=== PATIENT | male | born 1955 | race Caucasian/White ===

== ENCOUNTER → 2020-12-19 22:00 | Outpatient (CLI) | payer MEDICARE, SELFPAY ==
[2018-07-16 17:31] VITALS: BMI 39.0
== END ==
PROVIDERS: Visit Provider Nurse Practitioner
DX: R10.9 Unspecified abdominal pain (principal)
CPT/HCPCS: 87077; 87086; 87088

== ENCOUNTER → 2021-02-19 21:31 | Outpatient (CLI) | payer MEDICARE, SELFPAY ==
[2021-02-19 15:27] VITALS: BMI 41.8
[2021-02-19 21:40] LABS: Absolute Lymphocyte Count 2.16 X10^3/uL (0.83-4.51); Absolute Neutrophil Count 3.7 X10^3/uL (2.0-7.7); Basophil# 0.08 X10^3/uL; Basophil% 1.2 % (0-1); Eosinophils% 1.5 % (0-5); Hematocrit 48.4 % (40-54); Lymphocyte # 2.16 X10^3/ul (0.83-4.51); Lymphocyte % 31.7 % (19-41); Mean Corp Hgb Conc 33.1 g/dL (32-36); Mean Corpuscular Hgb 31.9 pg (27.0-32.0); Mean Corpuscular Volume 96.6 fL (80-94); Mean Platelet Vol. 9.9 fl (6.2-12.0); Monocyte# 0.71 X10^3/uL; Monocyte% 10.4 % (0-10); NRBC Flagged by Analyzer 0 % (0-5); Neutrophil # 3.72 X10^3/uL (2.7-7.7); Neutrophil % 54.6 % (47-70); Platelet Count 270 K/mm3 (150-450); RBC Distribution Width CV 13.2 % (11.6-14.6); RBC Distribution Width SD 47.2 fl (35.1-43.9); Red Blood Count 5.01 M/mm3 (4.6-6.2); White Blood Count 6.8 K/mm3 (4.4-11.0)
[2021-02-19 21:55] LABS: Insulin 32.9 mU/L (2.6-37.6)
[2021-02-19 22:01] LABS: AST(SGOT) 29 U/L (15-37); Alanine Aminotransfer ALT/SGPT 48 U/L (16-61); Alkaline Phosphatase 46 U/L (45-117); Anion Gap 7 (5-15); BUN 14 mg/dL (7-18); BUN/Creat Ratio 17.6 RATIO (10-20); Calcium,Total 8.9 mg/dL (8.5-10.1); Chloride 103 mmol/L (98-107); Cholesterol 205 mg/dL (200); EST Glomerular Filtration Rate 104 mL/min (>60); Est Glom Filt Rate - Afr Amer 126 mL/min (>60); Glucose 90 mg/dL (74-106); High Density Lipoprotein 46 mg/dL; PSA,Total- Diagnostic 0.39 ng/mL (0.0-4.0); Sodium Level 136 mmol/L (136-145); Thyroid Stim Hormone (TSH) 1.11 uIU/mL (0.358-3.74); Triglycerides 137 mg/dL; Very Low Density Lipoprotein 27 mg/dL (5-40)
== END ==
PROVIDERS: Visit Provider Nurse Practitioner
DX: I10 Essential (primary) hypertension (principal); F41.1 Generalized anxiety disorder; H66.91 Otitis media, unspecified, right ear; E78.5 Hyperlipidemia, unspecified; R35.0 Frequency of micturition; R63.5 Abnormal weight gain
CPT/HCPCS: 80053; 80061; 83525; 84153; 84443; 85025

== ENCOUNTER → 2022-05-06 | Outpatient (CLI) | payer MEDICARE, SELFPAY ==
[2022-05-06 22:57] LABS: Absolute Lymphocyte Count 2.16 X10^3/uL (0.83-4.51); Absolute Neutrophil Count 3.3 X10^3/uL (2.0-7.7); Basophil% 1.6 % (0-1); Eosinophil# 0.07 X10^3/uL; Eosinophils% 1.1 % (0-5); Hematocrit 45.3 % (40-54); Hemoglobin 15.6 g/dL (13.0-16.5); Lymphocyte # 2.16 X10^3/ul (0.83-4.51); Lymphocyte % 34.4 % (19-41); Mean Corp Hgb Conc 34.4 g/dL (32-36); Mean Corpuscular Hgb 32.8 pg (27.0-32.0); Mean Corpuscular Volume 95.2 fL (80-94); Mean Platelet Vol. 10.5 fl (6.2-12.0); Monocyte# 0.66 X10^3/uL; Monocyte% 10.5 % (0-10); NRBC Flagged by Analyzer 0 % (0-5); Neutrophil # 3.26 X10^3/uL (2.7-7.7); Neutrophil % 52.1 % (47-70); POSITIVE COUNT YES; Platelet Count 218 K/mm3 (150-450); RBC Distribution Width SD 45.5 fl (35.1-43.9); Red Blood Count 4.76 M/mm3 (4.6-6.2); White Blood Count 6.3 K/mm3 (4.4-11.0)
[2022-05-06 23:09] LABS: AST(SGOT) 22 U/L (15-37); Alanine Aminotransfer ALT/SGPT 37 U/L (16-61); Albumin, Serum 3.8 g/dL (3.2-5.0); Alkaline Phosphatase 46 U/L (45-117); Anion Gap 7 (5-15); BUN 17 mg/dL (7-18); BUN/Creat Ratio 22.5 RATIO (10-20); Chloride 105 mmol/L (98-107); Cholesterol 211 mg/dL (200); Creatinine, Serum 0.75 mg/dL (0.70-1.30); EST Glomerular Filtration Rate 110 mL/min (>60); Est Glom Filt Rate - Afr Amer 133 mL/min (>60); Globulin 3.8 g/dL (2.2-4.2); Glucose 92 mg/dL (74-106); High Density Lipoprotein 49 mg/dL; PSA,Total - Annual Screen 0.62 ng/mL (0.00-4.00); Potassium 3.8 mmol/L (3.5-5.1); Protein, Total 7.6 g/dL (6.4-8.2); Sodium Level 138 mmol/L (136-145); Triglycerides 133 mg/dL; Very Low Density Lipoprotein 27 mg/dL (5-40)
[2022-05-06 23:16] LABS: Differential Indicated SCAN CRITERIA MET
[2022-05-06 23:26] LABS: Differential Comment SCANNED
== END | disposition home or self-care (01) ==
PROVIDERS: Visit Provider Nurse Practitioner
DX: Z00.00 Encounter for general adult medical examination without abnormal findings (principal); H65.02 Acute serous otitis media, left ear; I10 Essential (primary) hypertension; R35.0 Frequency of micturition; Z12.5 Encounter for screening for malignant neoplasm of prostate
CPT/HCPCS: 80053; 80061; 84153; 85025; G0103

== ENCOUNTER → 2023-01-06 | Outpatient (CLI) | payer MEDICARE, SELFPAY | END | disposition home or self-care (01) | PROVIDERS: Visit Provider Nurse Practitioner | DX: R31.9 Hematuria, unspecified (principal) | CPT/HCPCS: 87086; 87088 ==

== ENCOUNTER 2023-10-10 22:24 | Outpatient (CLI) | payer MEDICARE, SELFPAY ==
[2023-10-10 22:34] LABS: Absolute Lymphocyte Count 1.97 X10^3/uL (0.83-4.51); Absolute Neutrophil Count 3.9 X10^3/uL (2.0-7.7); Basophil# 0.06 X10^3/uL; Basophil% 0.9 % (0-1); Eosinophil# 0.12 X10^3/uL; Eosinophils% 1.7 % (0-5); Hematocrit 44.9 % (40-54); Hemoglobin 15.2 g/dL (13.0-16.5); Lymphocyte # 1.97 X10^3/ul (0.83-4.51); Lymphocyte % 28.7 % (19-41); Mean Corp Hgb Conc 33.9 g/dL (32-36); Mean Corpuscular Hgb 32.7 pg (27.0-32.0); Mean Corpuscular Volume 96.6 fL (80-94); Mean Platelet Vol. 10.1 fl (6.2-12.0); Monocyte# 0.75 X10^3/uL; Monocyte% 10.9 % (0-10); NRBC Flagged by Analyzer 0 % (0-5); Neutrophil # 3.94 X10^3/uL (2.7-7.7); Neutrophil % 57.5 % (47-70); Platelet Count 235 K/mm3 (150-450); RBC Distribution Width CV 13.1 % (11.6-14.6); RBC Distribution Width SD 46.5 fl (35.1-43.9); Red Blood Count 4.65 M/mm3 (4.6-6.2); White Blood Count 6.9 K/mm3 (4.4-11.0)
[2023-10-10 22:49] LABS: ALB/GLOB Ratio 1.1 RATIO (0.9-2.4); AST(SGOT) 44 U/L (15-37); Alanine Aminotransfer ALT/SGPT 45 U/L (16-61); Albumin, Serum 4.1 g/dL (3.2-5.0); Alkaline Phosphatase 42 U/L (45-117); Anion Gap 8 (5-15); BUN 21 mg/dL (7-18); Calcium,Total 9.5 mg/dL (8.5-10.1); Chloride 104 mmol/L (98-107); Cholesterol 109 mg/dL (200); Creatinine, Serum 0.88 mg/dL (0.70-1.30); EST Glomerular Filtration Rate 92 mL/min (>60); Est Glom Filt Rate - Afr Amer 112 mL/min (>60); Globulin 3.9 g/dL (2.2-4.2); Glucose 88 mg/dL (74-106); High Density Lipoprotein 51 mg/dL; PSA,Total - Annual Screen 0.54 ng/mL (0.00-4.00); Potassium 4.2 mmol/L (3.5-5.1); Sodium Level 138 mmol/L (136-145); Triglycerides 80 mg/dL; Very Low Density Lipoprotein 16 mg/dL (5-40)
== END 2023-10-10 23:59 | disposition home or self-care (01) ==
PROVIDERS: Visit Provider Nurse Practitioner
DX: G47.00 Insomnia, unspecified (principal); I10 Essential (primary) hypertension; F41.9 Anxiety disorder, unspecified; E78.5 Hyperlipidemia, unspecified; R31.9 Hematuria, unspecified; H65.02 Acute serous otitis media, left ear; Z12.5 Encounter for screening for malignant neoplasm of prostate
CPT/HCPCS: 80053; 80061; 84153; 85025; G0103

== ENCOUNTER → 2024-10-20 | Outpatient (CLI) | payer BC, SELFPAY ==
[2024-10-20 23:59] LABS: PSA,Total - Annual Screen 0.53 ng/mL (0.02-4.00)
[2024-10-21 00:27] LABS: Absolute Lymphocyte Count 2.28 X10^3/uL (0.83-4.51); Absolute Neutrophil Count 3.6 X10^3/uL (2.0-7.7); Basophil# 0.08 X10^3/uL; Basophil% 1.2 % (0-1); Eosinophil# 0.14 X10^3/uL; Eosinophils% 2.1 % (0-5); Hematocrit 46.8 % (40-54); Hemoglobin 16.2 g/dL (13.0-16.5); Lymphocyte # 2.28 X10^3/ul (0.83-4.51); Lymphocyte % 33.4 % (19-41); Mean Corp Hgb Conc 34.6 g/dL (32-36); Mean Corpuscular Hgb 33.1 pg (27.0-32.0); Mean Corpuscular Volume 95.7 fL (80-94); Mean Platelet Vol. 10.2 fl (6.2-12.0); Monocyte# 0.66 X10^3/uL; Monocyte% 9.7 % (0-10); NRBC Flagged by Analyzer 0 % (0-5); Neutrophil # 3.63 X10^3/uL (2.7-7.7); Neutrophil % 53.2 % (47-70); Platelet Count 244 K/mm3 (150-450); RBC Distribution Width CV 13.2 % (11.6-14.6); RBC Distribution Width SD 46.6 fl (35.1-43.9); Red Blood Count 4.89 M/mm3 (4.6-6.2); White Blood Count 6.8 K/mm3 (4.4-11.0)
[2024-10-21 00:29] LABS: Cholesterol 126 mg/dL (<=200); High Density Lipoprotein 49 mg/dL; Low Density Lipoprotein Calc. 57 mg/dL; Triglycerides 101 mg/dL; Very Low Density Lipoprotein 20 mg/dL (5-40); cholesterol:hdl ratio screen 2.58
[2024-10-21 00:40] LABS: ALB/GLOB Ratio 3.3 RATIO (0.9-2.4); AST(SGOT) 39 U/L (<=37); Alanine Aminotransfer ALT/SGPT 32 U/L (<=46); Albumin, Serum 2.2 g/dL (3.4-4.8); Alkaline Phosphatase 36 U/L (40-129); Anion Gap 11 (5-15); BUN 13 mg/dL (4-19); BUN/Creat Ratio 17.2 RATIO (10-20); Calcium,Total 8.9 mg/dL (7.6-11.0); Carbon Dioxide 25.6 mmol/L (21.0-32.0); Chloride 101 mmol/L (98-108); Creatinine, Serum 0.77 mg/dL (0.70-1.20); EST Glomerular Filtration Rate 97 (>60); Globulin 0.7 g/dL (2.2-4.2); Glucose 89 mg/dL (70-99); Potassium 4.5 mmol/L (3.3-5.1); Protein, Total 2.8 g/dL (5.9-8.4); Sodium Level 138 mmol/L (133-145); Total Bilirubin < 0.15 mg/dL (0.00-1.30)
== END | disposition home or self-care (01) ==
PROVIDERS: Referring Provider Nurse Practitioner; Visit Provider Nurse Practitioner
DX: T80.90XA Unspecified complication following infusion and therapeutic injection, initial encounter (principal); F41.9 Anxiety disorder, unspecified; E78.2 Mixed hyperlipidemia; F51.01 Primary insomnia; Z12.5 Encounter for screening for malignant neoplasm of prostate
CPT/HCPCS: 80053; 80061; 84153; 85025; G0103

== ENCOUNTER → 2024-11-12 | Outpatient (CLI) | payer BC, SELFPAY | END | disposition home or self-care (01) | PROVIDERS: Referring Provider Nurse Practitioner; Visit Provider Nurse Practitioner | DX: R31.9 Hematuria, unspecified (principal); N20.0 Calculus of kidney | CPT/HCPCS: 87086 ==

== ENCOUNTER → 2024-11-12 | Outpatient (CLI) | payer BC, SELFPAY ==
[2024-11-12 23:37] LABS: ALB/GLOB Ratio 1.5 RATIO (0.9-2.4); AST(SGOT) 31 U/L (<=37); Alanine Aminotransfer ALT/SGPT 32 U/L (<=46); Albumin, Serum 4.7 g/dL (3.4-4.8); Alkaline Phosphatase 49 U/L (40-129); Anion Gap 14 (5-15); BUN 24 mg/dL (4-19); BUN/Creat Ratio 27.5 RATIO (10-20); Calcium,Total 10.1 mg/dL (7.6-11.0); Carbon Dioxide 22.4 mmol/L (21.0-32.0); Chloride 102 mmol/L (98-108); Creatinine, Serum 0.86 mg/dL (0.70-1.20); EST Glomerular Filtration Rate 94 (>60); Globulin 3.1 g/dL (2.2-4.2); Glucose 91 mg/dL (70-99); Potassium 4.7 mmol/L (3.3-5.1); Protein, Total 7.8 g/dL (5.9-8.4); Sodium Level 139 mmol/L (133-145); Total Bilirubin 0.68 mg/dL (0.00-1.30)
== END | disposition home or self-care (01) ==
PROVIDERS: Referring Provider Nurse Practitioner; Visit Provider Nurse Practitioner
DX: N20.0 Calculus of kidney (principal); R31.9 Hematuria, unspecified
CPT/HCPCS: 80053

== ENCOUNTER → 2025-04-18 | Outpatient (CLI) | payer BC, SELFPAY ==
--- OUTSIDE RECORDS SUMMARY | 2025-04-18 21:28 | XMS RPT_ITS | CCD ---
Author Organization [facility] Care Team Providers Care Shine Worker Name Role Phone Meri VICTORIA-KOMAL Gwen A Unavailable Borges PILE DRIVING TECHNICIAN.SUPERVISOR EDUCATION, Lai L Primary Care Provide r Borges PILE DRIVING TECHNICIAN.SUPERVISOR EDUCATION, Lai L Primary Care Provide r BORGES, LAI Referring Unavailable BORGES, LAI Primary Care Unavailable BORGES, LIA Primary Care Unavailable BORGES, LAI Primary Care Unavailable BORGES, LAI Primary Care Unavailable Sera Ellis DO Unavailable [phone] Karla Liu Unavailable AGUSTINA GONZALEZ, THAN Attending Unavailable BORGES, LAI Primary Care Unavailable KING HODGES MD Attending Unavail able BORGES, LAI Primary Care Unavailable BORGES, LAI Primary Care Unavailable AGUSTINA GONZALEZ, THAN Attending Unavailable AGUSTINA GONZALEZ, THAN Attending Unavailable BORGES, LAI Primary Care Unavailable AGUSTINA GONZALEZ, THAN Attending Unavailable BORGES, LAI Primary Care Unavailable BORGES, LAI Primary Care Unavailable Borges PILE DRIVING TECHNICIAN.SUPERVISOR EDUCATION, Lai L Primary Care Provide r CLIFF SOLITARIO Attending Unavailable BORGES, LAI L Referring Unavailable BORGES, LAI L Primary Care Unavailable PROVIDER, UNKNOWN Referring Unavailable BORGES, LAI L Primary Care Unavailable Borges UPHOLSTERER HELPER-C, Lai Attending Provider Borges UPHOLSTERER HELPER-C, Lai Referring Provider Borges UPHOLSTERER HELPER-C, Lai Attending Provider Borges UPHOLSTERER HELPER, Lai Attending Unavailable Borges UPHOLSTERER HELPER, Lai Referring Unavailable Borges UPHOLSTERER HELPER, Lai Referring Unavailable Borges UPHOLSTERER HELPER, Lai Attending Unavailable Borges UPHOLSTERER HELPER, Lai Referring Unavailable Borges UPHOLSTERER HELPER, Lai Attending Unavailable MEAGAN WITT Referring Unavailable PROVIDER, UNKNOWN Admitting Unavailable PROVIDER, UNKNOWN Attending Unavailable PROVIDER, UNKNOWN Attending Unavailable BORGES, LAI Referring Unavailable PROVIDER, UNKNOWN Admitting Unavailable AGUSTINA GONZALEZ, THAN Attending Unavailable BORGES, LAI Primary Care Unavailable BORGES, LAI Primary Care Unavailable AGUSTINA GONZALEZ, THAN Attending Unavailable BORGES, LAI Primary Care Unavailable AGUSTINA GONZALEZ, THAN Attending Unavailable BORGES, LAI Primary Care Unavailable AGUSTINA GONZALEZ, THAN Attending Unavailable BORGES, LAI Primary Care Unavailable BORGES, LAI Primary Care Unavailable BORGES, LAI Primary Care Unavailable Allergies Allergy Classification Reported Allergen(s) Allergy Type Date of Onset Reaction(s) Facility (9 sources) Penicillin G; Translations: [PENICILLIN] Drug Allergy 8 [facility] Work Phone: (5 sources) Escitalopram Drug Allergy 1 nose bleeds [facility] (5 sources) Penicillin G Drug Allergy 8 u [facility] (1 source) Penicillins Propensity to adverse reactions to drug (disorder) Rash [place] (4 sources) DULoxetine Drug Allergy 3 unable walk vision off [facility] (1 source) DULoxetine Drug Allergy 3 [facility] (1 source) Escitalopram Drug Allergy 1 [facility] (1 source) Penicillin Drug Allergy 8 [facility] Medications Current Medications Medication Drug Class(es) Dates Sig (Normalized) Sig (Original) hydrOXYzine hydrochloride 10 mg oral tablet (5 sources) Antihistamine Start: 01-14-2024 take 1 tablet by mouth three to four times daily as needed for anxiety Hydroxyzine Hcl 10 mg tablet Active 10 mg PO 3 to 4 times per day as needed for anxiety January 14, 2024 12:00am take 1 tablet by yisel th every eight hours as needed hydrOXYzine HCl (ATARAX) 10 mg tablet Ta ke 10 mg by mouth three times a day as needed for anxiety. Active 24 hr metoprolol succinate 25 mg extended release oral tablet (11 sources) beta-Adrenergic Leonardo Start: 10-10-2023 take 2 tablets by mouth once daily Metoprolol Succinate 25 mg tablet extended release 24 hr Active 12.5 mg PO DAILY October 10, 2023 5:36pm Start: 10-10-2023 take 12.5 mg by mout h once daily Metoprolol Succinate Active 12.5 MG PO DAILY October 10, 2023 5:36pm Start: 09-17-2022 End: 10-10-2023 take 1 tablet by mouth once daily Metoprolol Succinate 25 mg tablet extended release 24 hr Discontinued 25 mg PO DAILY September 17, 2022 1:00am October 10, 2023 5:37pm Metoprolol tartr ate 50 mg oral tablet tamsulosin hydrochloride 0.4 mg oral capsule (11 sources) alpha-Adrenergic Leonardo Start: 11-12-2024 take 1 capsule by mouth once daily Tamsulosin 0.4 mg capsule Active 0.4 mg PO daily November 12, 2024 12:00am Start: 04-25-2018 End: 04-07-2024 take 1 capsule by mouth once daily Tamsulosin 0.4 mg capsule Discontinued 0.4 mg PO DAILY January 06, 2023 12:00am October 10, 2023 5:32pm traZODone hydrochloride 100 mg oral tablet (18 sources) Serotonin Reuptake Inhibitor Start: 01-14-2024 End: 06-17-2024 Trazodone 100 mg tablet Active 50 mg PO AT BEDTIME June 17, 2024 5:19pm Start: 10-10-2023 End: 01-14-2024 take 1 tablet by mouth at bedtime as needed Trazodone 100 mg tablet Discontinued 100 mg PO AT BEDTIME as needed for insomnia October 10, 2023 5:46pm January 14, 2024 5:24pm Start: 12-06-2022 End: 10-10-2023 take 1 tablet by mouth once daily Trazodone 50 mg tablet Discontinued 50 mg PO DAILY December 06, 2022 12:00am October 10, 2023 5:37pm take 25 mg by mouth once daily at bedtime trazodone HCl (TRAZODONE ORAL) Take 25 mg by mouth daily at bedtime. Active (1 source) Aspirin OTC, 81 mg Completed/Discontinued Medications Medication Drug Class(es) Dates Sig (Normalized) Sig (Original) ALPRAZolam 0.5 mg oral tablet (10 sources) Benzodiazepine Start: 05-22-2018 End: 09-26-2021 take 1 tablet by mouth once daily as needed for anxiety Alprazolam 0.5 mg tablet Discontinued 0.5 mg PO daily as needed for anxiety February 19, 2021 3:54pm September 26, 2021 7:29pm aspirin 81 mg delayed release oral tablet (4 sources) Platelet Aggregation Inhibitor, Nonsteroidal Anti-inflammatory Drug Start: 05-22-2020 ASPIRIN 81 MG [facility] ASPIRIN [id number] Gwen Jerez PILE DRIVING TECHNICIAN-SUPERVISOR EDUCATION take 1 tablet by mouth once khushi y aspirin 81 mg chewable tablet Take 81 mg by mouth once daily. Active atorvastatin 40 mg oral tablet (13 sources) HMG-CoA Reductase Inhibitor Start: 09-17-2022 End: 06-17-2024 take 1 tablet by mouth once daily Atorvastatin (Lipitor) 40 mg tablet Discontinued 40 mg PO DAILY October 10, 2023 5:30pm June 17, 2024 5:49pm Atorvastatin 20 mg oral tablet azithromycin 250 mg oral tablet (2 sources) Macrolide Antimicrobial Start: 06-17-2024 End: 06-22-2024 take 2 tablets by mouth once daily, then take 1 tablet by mouth once daily at mealtime Azithromycin 250 mg tablet Discontinued 250 mg PO daily 6 June 17, 2024 1:00am June 21, 2024 1:00am June 22, 2024 1:08am 2 po qd for 1 day then 1 po qd for 4 days with food or after eating cefdinir 300 mg oral capsule (3 sources) Cephalosporin Antibacterial Start: 07-19-2024 End: 10-20-2024 take 1 capsule by mouth twice daily Cefdinir 300 mg capsule Discontinued 300 mg PO TWICE A DAY July 19, 2024 1:00am October 20, 2024 6:37pm Start: 01-06-2023 Cefdinir 300 m g oral capsule cefuroxime 500 mg oral tablet (14 sources) Cephalosporin Antibacterial Start: 01-01-2023 End: 01-11-2023 take 1 tablet by mouth every twelve hours Cefuroxime Axetil 500 mg tablet Discontinued 500 mg PO Q12H 16 05January 01, 2023 3:18pm January 10, 2023 12:00am January 11, 2023 12:12am Start: 12-07-2021 End: 12-17-2021 take 1 tablet by mouth every twelve hours Cefuroxime Axetil 500 mg tablet Discontinued 500 mg PO Q12H 16 05December 07, 2021 4:48pm December 16, 2021 12:00am December 17, 2021 12:03am Start: 02-19-2018 End: 03-01-2018 take 1 tablet by mouth every twelve hours Cefuroxime Axetil 500 mg tablet Discontinued 500 mg PO Q12H 16 05February 19, 2018 12:00am February 28, 2018 12:00am March 01, 2018 12:09am ciprofloxacin 500 mg oral tablet (5 sources) Quinolone Antimicrobial Start: 06-16-2018 End: 07-16-2018 take 1 tablet by mouth twice daily Ciprofloxacin Hcl (Cipro) 500 mg tablet Discontinued 500 mg PO TWICE A DAY June 16, 2018 1:00am July 16, 2018 6:43pm clarithromycin 500 mg oral tablet (5 sources) Macrolide Antimicrobial Start: 07-16-2018 End: 12-20-2020 take 1 tablet by mouth every twelve hours Clarithromycin 500 mg tablet Discontinued 500 mg PO Q12H July 16, 2018 1:00am December 20, 2020 2:23pm clopidogrel 75 mg oral tablet (8 sources) P2Y12 Platelet Inhibitor Start: 09-17-2022 End: 01-14-2024 take 1 tablet by mouth once daily Clopidogrel 75 mg tablet Discontinued 75 mg PO DAILY October 10, 2023 5:30pm January 14, 2024 5:23pm doxycycline hyclate 100 mg oral tablet (5 sources) Tetracycline-class Drug Start: 05-27-2018 End: 07-16-2018 take 1 tablet by mouth twice daily Doxycycline Hyclate 100 mg tablet Discontinued 100 mg PO TWICE A DAY May 27, 2018 12:00am July 16, 2018 6:43pm DULoxetine 30 mg delayed release oral capsule (8 sources) Serotonin and Norepinephrine Reuptake Inhibitor Start: 09-17-2022 End: 10-22-2022 take 1 capsule by mouth once daily Duloxetine 30 mg capsule,delayed release(DR/EC) Discontinued 30 mg PO DAILY September 17, 2022 8:46pm October 22, 2022 4:51pm escitalopram 10 mg oral tablet (5 sources) Serotonin Reuptake Inhibitor Start: 12-19-2020 End: 02-19-2021 Escitalopram Oxalate 10 mg tablet Discontinued 10 mg PO DAILY December 19, 2020 12:00am February 19, 2021 3:50pm Take 1/2 tablet a day for about 10 days then start 1 whole tablet Ibuprofen (1 source) Nonsteroidal Anti-inflammatory Drug Start: 05-02-2020 IBUPROFEN TABS as needed as directed IBUPROFEN TABS [id number] Breanna Brianna CARRILLO ketorolac tromethamine 10 mg oral tablet (3 sources) Nonsteroidal Anti-inflammatory Drug, Cyclooxygenase Inhibitor Start: 04-25-2018 End: 04-07-2024 take 1 tablet by mouth every six hours as needed ketorolac (TORADOL) 10 mg tablet Take 1 tablet by mouth every 6 hours as needed. 20 tablet 04/25/2018 04/07/2024 Discontinued Comment on above: Take 1 tablet by yisel th every 6 hours as needed. LORazepam 0.5 mg oral tablet (18 sources) Benzodiazepine Start: 09-26-2021 End: 06-17-2024 take 1 tablet by mouth twice daily as needed for anxiety Lorazepam (Ativan) 0.5 mg tablet Discontinued 0.5 mg PO TWICE A DAY as needed for anxiety 60 October 10, 2023 5:30pm June 17, 2024 5:23pm LORazepam 1 mg o ral tablet losartan potassium 100 mg oral tablet (5 sources) Angiotensin 2 Receptor Leonardo Start: 05-22-2018 End: 12-20-2020 take 1 tablet by mouth once daily Losartan 100 mg tablet Discontinued 100 mg PO DAILY May 22, 2018 12:00am December 20, 2020 2:23pm metroNIDAZOLE 250 mg oral tablet (5 sources) Nitroimidazole Antimicrobial Start: 12-20-2020 End: 12-30-2020 take 1 tablet by mouth three times daily Metronidazole 250 mg tablet Discontinued 250 mg PO THREE TIMES A DAY 26 05December 20, 2020 12:00am December 29, 2020 12:00am December 30, 2020 12:01am predniSONE 20 mg oral tablet (4 sources) Start: 10-25-2022 End: 12-06-2022 take 2 tablets by mouth once daily Prednisone 20 mg tablet Discontinued 40 mg PO DAILY October 25, 2022 12:00am December 06, 2022 3:49pm Start: 10-25-2022 End: 12-06-2022 take 40 mg by mouth once daily Prednisone Discontinued 40 MG PO DAILY October 25, 2022 12:00am December 06, 2022 3:49pm 24 hr venlafaxine 37.5 mg extended release oral capsule (3 sources) Serotonin and Norepinephrine Reuptake Inhibitor Start: 10-10-2023 End: 01-14-2024 take 1 capsule by mouth once daily Venlafaxine (Effexor Xr) 37.5 mg capsule,extended release 24hr Discontinued 37.5 mg PO DAILY October 10, 2023 12:00am January 14, 2024 5:24pm NEGATED: Highlighted row has not occurred! (1 source) Start: 01-09-2023 End: 01-09-2023 Problems Active Problems Problem Classification Problem Date Documented Da te Episodic/Chronic Abdominal pain (2 sources) Right flank pain; Translations: [Unspecified abdominal pain] Onset: 11-23-2024 11-15-2024 Episodic Allergic reactions (5 sources) Atopic dermatitis; Translations: [Atopic dermatitis, unspecified] 05-22-2018 Chronic Anxiety disorders (11 sources) Anxiety disorder; Translations: [Anxiety disorder, unspecified] Onset: 04-07-2024 05-22-2018 Chronic Calculus of urinary tract (6 sources) Kidney stone; Translations: [Calculus of kidney] Onset: 11-17-2024 01-06-2023 Episodic Cancer of bronchus; lung (2 sources) Malignant tumor of lung; Translations: [Malignant neoplasm of unspecified part of unspecified bronchus or lung] 02-13-2024 Chronic Chronic obstructive pulmonary disease and bronchiectasis (5 sources) Bronchitis; Translations: [Bronchitis, not specified as acute or chronic] 02-19-2018 Episodic Complications of surgical procedures or medical care (3 sources) Injection site disorder; Translations: [Unspecified complication following infusion and therapeutic injection, initial encounter] Onset: 10-25-2024 10-20-2024 Episodic Coronary atherosclerosis and other heart disease (5 sources) Atherosclerotic heart disease of [place] coronary artery without angina pectoris; Translations: [Cardiovascular disease, unspecified] Onset: 10-08-2022 04-07-2024 Chronic Diabetes mellitus without complication (4 sources) Hyperglycemia; Translations: [Hyperglycemia, unspecified] 12-06-2022 Episodic Disorders of lipid metabolism (6 sources) Hyperlipidemia; Translations: [Hyperlipidemia, unspecified] Onset: 10-08-2022 10-12-2023 Chronic Essential hypertension (9 sources) Hypertensive disorder; Translations: [Essential (primary) hypertension] Onset: 07-23-2017 02-19-2021 Chronic Genitourinary symptoms and ill-defined conditions (8 sources) Blood in urine; Translations: [Hematuria, unspecified] Onset: 11-17-2024 01-06-2023 Episodic Joint disorders and dislocations; trauma-related (1 source) Other tear of medial meniscus, current injury, left knee, initial encounter; Translations: [Other tear of medial meniscus, current injury, left knee, initial encounter] Onset: 05-04-2020 05-04-2020 Episodic Osteoarthritis (5 sources) Primary osteoarthritis, left hand; Translations: [Degenerative joint disease of hand] Onset: 10-23-2022 10-23-2022 Chronic Other connective tissue disease (1 source) Other specified soft tissue disorders; Translations: [Swelling of limb] Onset: 10-23-2022 Episodic Other connective tissue disease (1 source) Pain in left finger(s); Translations: [Pain in left finger(s)] Onset: 10-23-2022 Episodic Other connective tissue disease (4 sources) Pain in thumb ; Translations: [Pain in left finger(s)] 10-22-2022 Episodic Other connective tissue disease (4 sources) Swelling of hand; Translations: [Other specified soft tissue disorders] 10-23-2022 Episodic Other ear and sense organ disorders (4 sources) Otalgia, left ear; Translations: [Left ear pain] 12-31-2022 Episodic Other ear and sense organ disorders (4 sources) Tinnitus; Translations: [Tinnitus, unspecified ear] 12-31-2022 Episodic Other gastrointestinal disorders (4 sources) Diarrhea; Translations: [Diarrhea, unspecified] 12-06-2022 Episodic Other nutritional; endocrine; and metabolic disorders (5 sources) Weight gain; Translations: [Abnormal weight gain] 02-19-2021 Episodic Other nutritional; endocrine; and metabolic disorders (4 sources) Weight increased; Translations: [Abnormal weight gain] 02-19-2021 Episodic Other screening for suspected conditions (not mental disorders or infectious disease) (9 sources) Patient encounter status; Translations: [Encounter for screening for malignant neoplasm of respiratory organs] Onset: 04-29-2024 04-07-2024 Episodic Other upper respiratory infections (10 sources) Acute maxillary sinusitis; Translations: [Acute maxillary sinusitis, unspecified] 06-16-2018 Episodic Otitis media and related conditions (13 sources) Otitis media; Translations: [Otitis media, unspecified, left ear] Onset: 01-06-2023 05-22-2018 Episodic Residual codes; unclassified (1 source) History of operative procedure on knee; Translations: [Other specified postprocedural states] Onset: 05-22-2020 05-23-2020 Episodic Residual codes; unclassified (4 sources) Insomnia; Translations: [Insomnia, unspecified] 12-06-2022 Episodic Screening and history of mental health and substance abuse codes (4 sources) Ex-tobacco user; Translations: [Personal history of nicotine dependence] Onset: 04-29-2024 04-07-2024 Episodic Substance-related disorders (1 source) Nicotine dependence; Translations: [Nicotine dependence, unspecified, uncomplicated] 04-07-2024 Chronic Unclassified (1 source) Cough, unspecified; Translations: [Cough, unspecified] Onset: 05-07-2022 Unclassified (1 source) High Cholesterol Past or Other Problems Problem Classification Problem Date Documented Da te Episodic/Chronic Unclassified (1 source) Problem Unclassified (5 sources) cyst axillasebaceous 02-25-2022 Unclassified (1 source) Contact with and (suspected) exposure to COVID-19; Translations: [Contact with and (suspected) exposure to COVID-19] Results Test Name Value Interpretation Reference Range Facility AMB CARD Physician Progress Noteon 02-09-2025 AMB CARD Physician Progress Note ALINAANGELO :1955 [facility]:[id number] Registration Date:02/09/2025 Assessment/Plan Patient is a 69-year-old male with a history of coronary artery disease, mixed hyperlipidemia, and obesity presenting today for follow-up on cardiovascular health and weight management. This Visit Diagnosis BMI 40.0-44.9, adult Z68.41 - Assessment consistent with obesity. - Recommend weight loss through dietary modifications and increased physical activity. - Advise against use of semaglutide compound due to adverse effects experienced. Ordered: AMB Follow - Up Appt Amb, 02/09/2025 10:40:00 EDT, 4 months AMB Office/Outpt Est Pt High MDM / 40 min [id number], 02/09/2025 10:40:00 EDT, BMI 40.0-44.9, adult / Coronary artery disease / HTN (hypertension), benign / Mixed hyperlipidemia / S/P coronary artery stent placement Coronary artery disease I25.10 - Assessment consistent with coronary artery disease. - Repeat nuclear stress test in one year unless symptoms such as chest pain develop. - Follow up with entry level administrative assistant as recommended. Ordered: AMB Follow - Up Appt Amb, 02/09/2025 10:40:00 EDT, 4 months AMB Office/Outpt Est Pt High MDM / 40 min [id number], 02/09/2025 10:40:00 EDT, BMI 40.0-44.9, adult / Coronary artery disease / HTN (hypertension), benign / Mixed hyperlipidemia / S/P coronary artery stent placement HTN (hypertension), benign I10 - Blood pressure well controlled at 126/72. - Continue current antihypertensive regimen. Ordered: AMB Follow - Up Appt Amb, 02/09/2025 10:40:00 EDT, 4 months AMB Office/Outpt Est Pt High MDM / 40 min [id number], 02/09/2025 10:40:00 EDT, BMI 40.0-44.9, adult / Coronary artery disease / HTN (hypertension), benign / Mixed hyperlipidemia / S/P coronary artery stent placement Mixed hyperlipidemia E78.2 - Assessment consistent with mixed hyperlipidemia. - Continue current lipid-lowering therapy. - Recommend dietary modifications to reduce cholesterol intake. Ordered: AMB Follow - Up Appt Amb, 02/09/2025 10:40:00 EDT, 4 months AMB Office/Outpt Est Pt High MDM / 40 min [id number], 02/09/2025 10:40:00 EDT, BMI 40.0-44.9, adult / Coronary artery disease / HTN (hypertension), benign / Mixed hyperlipidemia / S/P coronary artery stent placement S/P coronary artery stent placement Z95.5 - Continue monitoring for any signs of stent-related complications. - Follow up with entry level administrative assistant as recommended. Ordered: AMB Follow - Up Appt Amb, 02/09/2025 10:40:00 EDT, 4 months AMB Office/Outpt Est Pt High MDM / 40 min [id number], 02/09/2025 10:40:00 EDT, BMI 40.0-44.9, adult / Coronary artery disease / HTN (hypertension), benign / Mixed hyperlipidemia / S/P coronary artery stent placement Low protein levels - Assessment consistent with low protein levels. - Recommend increasing dietary protein intake. - Follow up with primary care physician to monitor protein levels. -Spent with the patient approximately 40 minutes and explaining the need for diet, treatment plan and counseling for diet and changing her lifestyle modifications. Chief Complaint CAD, HTN History of Present Illness Disclaimer: The content of this note was generated by an artificial intelligence (AI) language model version 25.03.0.0 The patient is a 69-year-old male with a history of coronary artery disease and hypertension, presenting today for follow-up on back pain, weight management, and medication reactions. Back pain The patient reports experiencing back and flank pain starting at the end of October or early November. He describes the pain as similar to previous kidney stone episodes, which he has had three times before. The pain was severe at times and would occasionally subside, but then it began affecting the other side as well. He consulted his primary care doctor, who referred him to [facility]. A CT scan without contrast was initially performed, which was not useful, so a subsequent CT scan with and without contrast was done. The results showed no kidney stones, but a congenital enlargement of one ureter was noted. Additionally, more plaque was found in his arteries, and a follow-up with his entry level administrative assistant was recommended. Weight management and medication reactions The patient has been using a semaglutide compound for weight loss, which he obtained from [facility]. He previously lost 22 pounds with this medication from a different source without issues. However, after resuming the medication following a two-week break, his back pain returned. He has gained about five pounds in the past month, partly due to staying indoors because of the heat. He reports feeling hungry all the time and being nervous, which affects his eating habits. Despite these challenges, he remains active and tries to eat healthily, including consuming a lot of [place] spr[place]. Protein levels Recent blood work revealed that the patient's protein levels were significantly low, about half of what they should be. He (more content not included)... Normal [facility] Discharge Educationon 2024 Discharge Education Cardiovascular Learning About Coronary Artery Disease (CAD) What is coronary artery disease? Coronary artery disease is a condition that occurs when plaque builds up in the arteries that bring oxygen-rich blood to your heart. Plaque is a fatty substance made of cholesterol, calcium, and other substances in the blood. This process is called hardening of the arteries, or atherosclerosis. What happens when you have coronary artery disease? ? Plaque may narrow the coronary arteries. Narrowed arteries cause poor blood flow. This can lead to angina symptoms such as chest pain or discomfort. If blood flow is completely blocked, you could have a heart attack. ? You can slow and reduce the risk of future problems by making changes in your lifestyle. These include quitting smoking and eating heart-healthy foods. ? Treatment, along with changes in your lifestyle, can help you live a longer and healthier life. How can you prevent coronary artery disease? ? Do not smoke. It may be the best thing you can do to prevent coronary artery disease. If you need help quitting, talk to your doctor about stop-smoking programs and medicines. These can increase your chances of quitting for good. ? Be active. Try to do moderate activity at least 2? hours a week. Or try to do vigorous activity at least 1? hours a week. You may want to walk or try other activities, such as running, swimming, cycling, or playing tennis or team sports. ? Eat heart-healthy foods. Eat more fruits and vegetables and less food that contains saturated and trans fats. Limit alcohol, sodium, and sweets. ? Stay at a healthy weight. Lose weight if you need to. ? Manage other health problems such as diabetes, high blood pressure, and high cholesterol. How is coronary artery disease treated? ? Your doctor will suggest that you make lifestyle changes. For example, your doctor may ask you to eat healthy foods, quit smoking, lose extra weight, and be more active. ? You will take medicines that help prevent a heart attack. ? Your doctor may suggest a procedure to open narrowed or blocked arteries. This is called angioplasty. Or your doctor may suggest using healthy blood vessels to create detours around narrowed or blocked arteries. This is called bypass surgery. Follow-up care is a mitchell part of your treatment and safety. Be sure to make and go to all appointments, and call your doctor if you are having problems. It's also a good idea to know your test results and keep a list of the medicines you take. Where can you learn more? Go to https://www.[employer].net /patientEd Enter C643 in the search box to learn more about Learning About Coronary Artery Disease (CAD). Current as of: August 06, 2021 Content Version: 13.3 ? [employer]. Care instructions adapted under license by your healthcare professional. If you have questions about a medical condition or this instruction, always ask your healthcare professional. [employer] disclaims any warranty or liability for your use of this information. Normal [facility] Provider Letter - Ambulatory on 02-09-2025 Provider Letter - Ambulatory LAI BORGES, [address] [facility] [address] [place] [address] RE: ANGELO GRACIA - 1955 Dear LAI BORGES This document is confidential and intended solely for the use of the individual or entity to which they are addressed. If you are not the named addressee, please disregard and do not disseminate, distribute or copy this information. If you are not the intended recipient you are notified that any disclosure of this information and its contents are strictly prohibited. If you have any questions about this document, please contact the office. Sincerely, AGUSTINA GONZALEZ, THAN [facility] The following document(s) were included in the letter: February 09, 2025 10:42:40 EDT - (02/09/2025) Cardiology Follow Up Note Normal [facility] CT UROGRAM W/+W/O CONTRASTon 12-22-2024 CT UROGRAM W/+W/O CONTRAST EXAMINATION: CT UROGRAM W/+W/O CONTRAST 12/21/2024 02:45 PM CLINICAL HISTORY: abnormal radiologic findings on diagnostic imaging of renal pelvis, ureter or bladder ASSOCIATED DIAGNOSIS: Abnormal radiologic findings on diagnostic imaging of renal pelvis, ureter, or bladder ORDERING PROVIDER: MEAGAN WITT TECHNOLOGISTS NOTE: COMPARISON: CT RENAL STONE 11/23/2024 12:34 PM TECHNIQUE: Contiguous unenhanced axial images were obtained through the kidneys, ureters, and urinary bladder. Subsequently, following the administration of intravenous contrast, early and delayed phase contiguous axial images were obtained through the abdomen and pelvis. Additional coronal and sagittal MPR reconstructions and coronal MIP reconstructions through the renal collecting system, ureters, and bladder were performed from the same workstation using the axial. Before infusion of intravenous contrast, radiology personnel investigated the possibility of an allergic history and any history of reaction to iodinated contrast material. Contrast Protocol: Omnipaque 350 [>or =100lb] 100 ml [<100 lb] 1 ml per 1 lb. INTRA-PROCEDURE MEDS: iohexol (OMNIPAQUE) 350 MG/ML injection 100 mL Route: Intravenous Push FINDINGS: UROGRAPHIC FINDINGS Kidneys, ureters and urinary bladder: * No renal, ureteral or urinary bladder calculus is identified on the noncontrast series. * No solid or suspicious cystic renal cortical lesion is noted. * An 8 mm simple cyst projecting off the cortex of the left kidney at the superior pole, Bosniak 1 (Series 6, Image 73). * Nephrograms are symmetric with symmetric excretion of contrast. 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 There again is dilatation of the left ureters starting just above the merge point. The left lower pole moiety ureter measures up to 12 mm in diameter. The upper pole moiety ureter measures up to 14 mm in diameter. The upstream ureters taper to more normal caliber as they approach the left kidney. No hydronephrosis. No suspicious filling defect or stricture is evident within the collecting systems and opacified portions of the ureters on the excretory phase series. The left distal ureter is not adequately opacified. Included images of the lower thorax: No focal lung consolidation or pleural effusion. Dependent atelectasis. Three-vessel coronary artery calcification is present. There is likely one or more stents in the right coronary artery. Areas of fat deposition are present in the left ventricular septum and inferior wall consistent with remote infarcts. Hepatobiliary: Unremarkable liver without biliary dilation evident Pancreas: Unremarkable Spleen: Unremarkable Adrenal Glands: Unremarkable Abdominal and pelvic vasculature: Atherosclerotic wall calcifications are present in the infrarenal aorta and iliacs without significant stenosis or aneurysm. Soft plaque is present within the proximal SMA resulting in mild stenosis. 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 No surrounding fat stranding is identified. The size of vessel is unchanged from the prior exam. There is no significant luminal stenosis. GI tract: No evidence of obstruction. The appendix is within normal limits. Colonic diverticulosis is present without evidence for diverticulitis. Peritoneum and retroperitoneum: No free fluid or free air is noted. A small direct left sided fat-containing inguinal hernia is present. Lymph Nodes: No abdominal or pelvic lymphadenopathy is evident. Prostate and seminal vesicles: Unremarkable Visualized musculoskeletal structures: Degenerative disc disease and degenerative facet arthropathy is present within the spine. There is no significant listhesis. IMPRESSION: 1. No stone, renal mass, or urothelial lesion identified. 2. 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 There again is dilatation of the left ureters starting just above the merge point. The left lower pole moiety ureter measures up to 12 mm in diameter. The upper pole moiety ureter measures up to 14 mm in diameter. The upstream ureters taper to more normal caliber as they approach the left kidney. No hydronephrosis. No suspicious filling defect or stricture is evident within the collecting systems and opacified portions of the ureters on the excretory phase series. This left-sided ureteral dilatation is of doubtful clinical significance and may be congenital. 3. 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 The size of vessel is unchanged from the prior exam. There is no significant luminal stenosis. 4. Colonic diverticulosis is present without evidence for diverticulitis. 5. Bosniak 1 left renal cyst. 6. Three-vessel coronary artery calcification is present. There is likely one or mor (more content not included)... Normal [facility] CT RENAL STONEon 11-23-2024 CT RENAL STONE EXAMINATION: CT IRGO L STONE 11/23/2024 12:30 PM CLINICAL HISTORY: Flank pain, right; Renal calculus suspected ASSOCIATED DIAGNOSIS: Kidney stone Asymptomatic microscopic hematuria Right flank pain ORDERING PROVIDER: LAI BORGES TECHNOLOGISTS NOTE: COMPARISON: None TECHNIQUE: CT abdomen and pelvis without contrast performed for renal stone protocol. Contiguous unenhanced axial images were obtained from above the kidneys through the level of the pubic symphysis. 2D sagittal and coronal reconstructions were obtained from the axial data. FINDINGS: Included images of the lower thorax: No focal lung consolidation or pleural effusion. Atherosclerotic calcifications along the aortic leaflet and coronary arteries. Status post coronary stenting. Hepatobiliary: Unremarkable liver without biliary dilation evident. Pancreas: Unremarkable Spleen: Unremarkable Adrenal Glands: Unremarkable Kidneys, ureters, and bladder: Partially duplicated bilateral renal collecting systems. There is asymmetric bulbous appearance of the left mid ureter at the junction of the upper and lower pole moiety. No obstructing stones or hydronephrosis identified. Abdominal and pelvic vasculature: Atherosclerotic wall calcifications are present without abdominal aortic aneurysm. GI tract: No evidence of obstruction. The appendix is within normal limits. Colonic diverticulosis is present without evidence for diverticulitis. Peritoneum and retroperitoneum: No free fluid or free air is noted. Fat-containing left inguinal hernia. Lymph Nodes: No abdominal or pelvic lymphadenopathy is evident. Prostate and seminal vesicles: Unremarkable Visualized musculoskeletal structures: Degenerative disc disease is present with endplate spurring. IMPRESSION: No renal stone or hydronephrosis identified. Bilateral partially duplicated renal collecting system. Bulbous appearance of the left ureter, beyond the junction of the upper and lower pole moieties, of unclear clinical significance. MACRO: None Normal [facility] Urine Cultureon 11-13-2024 URC Culture exhibits no growth. Normal [facility] Comment on above: Performed By: #### M 100.2200 #### [facility] [place], [address] Anion gap in Serum or Plasma Ordered By: Lai Borges on 11-12-2024 Anion gap [Moles/Vol] 14 mmol/L 5-15 [facility] BUN/creatinine ratioOrdered By: Lai Borges on 11-12-2024 Urea nitrogen/Creatinine [Mass ratio] 27.5 mg/mg High 10-20 [facility] Bilirubin, totalOrdered By: Lai Borges on 11-12-2024 Bilirubin [Mass/Vol] 0.68 mg/dL 0.00-1.30 [facility] Carbon dioxide, total [Moles /volume] in Central venous bloodOrdered By: Lai Borges on 11-12-2024 CO2 [Moles/Vol] 22.4 mmol/L 21.0-32.0 [facility] Chloride assayOrdered By: Do ra Borges on 11-12-2024 Chloride [Moles/Vol] 102 mmol/L 98-108 [facility] Comprehensive Metabolic Prof ilon 11-12-2024 Albumin [Mass/Vol] 4.7 g/dL Normal 3.4-4.8 [facility] Comment on above: Performed By: #### L 500.4050 #### [facility] [address] [place], [address] Albumin/Globulin [Mass ratio] 1.5 {ratio} Normal 0.9-2.4 [facility] Comment on above: Performed By: #### L 500.4050 #### [facility] [address] [place], [address] ALK PHOS 49 U/L Normal 40-129 [facility] Comment on above: Performed By: #### L 500.4050 #### [facility] [address] [place], [address] ALT [Catalytic activity/Vol] 32 U/L Normal <=46 [facility] Comment on above: Performed By: #### L 500.4050 #### [facility] [address] [place], [address] AST [Catalytic activity/Vol] 31 U/L Normal <=37 [facility] Comment on above: Performed By: #### L 500.4050 #### [facility] [address] [place], [address] Bilirubin [Mass/Vol] 0.68 mg/dL Normal 0.00-1.30 [facility] Comment on above: Performed By: #### L 500.4050 #### [facility] [address] [place], [address] BUN/CRE 27.5 RATIO High 10-20 [facility] Comment on above: Performed By: #### L 500.4050 #### [facility] [address] [place], [address] Calcium [Mass/Vol] 10.1 mg/dL Normal 7.6-11.0 [facility] Comment on above: Performed By: #### L 500.4050 #### [facility] [address] [place], [address] Chloride [Moles/Vol] 102 mmol/L Normal 98-108 [facility] Comment on above: Performed By: #### L 500.4050 #### [facility] [address] [place], [address] CO2 [Moles/Vol] 22.4 mmol/L Normal 21.0-32.0 [facility] Comment on above: Performed By: #### L 500.4050 #### [facility] [address] [place], [address] Creatinine [Mass/Vol] 0.86 mg/dL Normal 0.70-1.20 [facility] Comment on above: Performed By: #### L 500.4050 #### [facility] [address] [place], [address] GAP 14 Normal 5-15 [facility] Comment on above: Performed By: #### L 500.4050 #### [facility] [address] [place], [address] GFR/1.73 sq M.predicted among non-blacks MDRD (S/P/Bld) [Vol rate/Area] 94 mL/min/{1.73_m2} Normal >60 [facility] Comment on above: Result Comment: mL/m in/1.73m2 CKD-EPI Creatinine Equation (2020) Performed By: #### L 500.4050 #### [facility] [address] [place], [address] Globulin (S) [Mass/Vol] 3.1 g/dL Normal 2.2-4.2 [facility] Comment on above: Performed By: #### L 500.4050 #### [facility] [address] [place], [address] Glucose [Mass/Vol] 91 mg/dL Normal 70-99 [facility] Comment on above: Performed By: #### L 500.4050 #### [facility] [address] [place], [address] Potassium [Moles/Vol] 4.7 mmol/L Normal 3.3-5.1 [facility] Comment on above: Performed By: #### L 500.4050 #### [facility] [address] [place], [address] Sodium [Moles/Vol] 139 mmol/L Normal 133-145 [facility] Comment on above: Performed By: #### L 500.4050 #### [facility] [address] [place], [address] T PROT 7.8 g/dL Normal 5.9-8.4 [facility] Comment on above: Performed By: #### L 500.4050 #### [facility] [address] [place], [address] Urea nitrogen [Mass/Vol] 24 mg/dL High 4-19 [facility] Comment on above: Performed By: #### L 500.4050 #### [facility] [address] [place], [address] GFR/1.73 sq M.predicted bandar g non-blacks MDRD (S/P/Bld) [Vol rate/Area]Ordered By: Lai Borges on 11-12-2024 Estimated GFR (MDRD) Non-Af Amer 94 >60 [facility] Comment on above: mL/min/1.73m2 CKD-EP I Creatinine Equation (2020) Laboratory - Chemistry and C hemistry - challengeOrdered By: Lai Borges on 11-12-2024 AST [Catalytic activity/Vol] 31 U/L <38 [facility] Potassium (Unsp spec) [Mass/ Vol]Ordered By: Lai Borges on 11-12-2024 Potassium [Moles/Vol] 4.7 mmol/L 3.3-5.1 [facility] Serum creatinine measurement (mass/volume)Ordered By: Lai Borges on 11-12-2024 Creatinine [Mass/Vol] 0.86 mg/dL 0.70-1.20 [facility] Serum globulin measurementOr dered By: Lai Borges on 11-12-2024 Globulin (S) [Mass/Vol] 3.1 g/dL 2.2-4.2 [facility] Serum glucose measurement (m ass/volume)Ordered By: Lai Borges on 11-12-2024 Glucose [Mass/Vol] 91 mg/dL 70-99 [facility] Serum or plasma alanine trent otransferase (ALT) measurementOrdered By: Lai Borges on 11-12-2024 ALT [Catalytic activity/Vol] 32 U/L <47 [facility] Serum or plasma albumin jere urement (mass/volume)Ordered By: Lai Borges on 11-12-2024 Albumin [Mass/Vol] 4.7 g/dL 3.4-4.8 [facility] Serum or plasma albumin/glob ulin mass ratioOrdered By: Lai Borges on 11-12-2024 Albumin/Globulin [Mass ratio] 1.5 {ratio} 0.9-2.4 [facility] Serum or plasma alkaline acacia sphatase measurementOrdered By: Lai Borges on 11-12-2024 ALP [Catalytic activity/Vol] 49 U/L 40-129 [facility] Serum or plasma calcium jere urement (mass/volume)Ordered By: Lai Borges on 11-12-2024 Calcium [Mass/Vol] 10.1 mg/dL 7.6-11.0 [facility] Serum or plasma urea nitroge n measurement (mass/volume)Ordered By: Lai Borges on 11-12-2024 Urea nitrogen [Mass/Vol] 24 mg/dL High 4-19 [facility] Sodium levelOrdered By: Lai Borges on 11-12-2024 Sodium [Moles/Vol] 139 mmol/L 133-145 [facility] Total proteinOrdered By: Delta Borges on 11-12-2024 Protein [Mass/Vol] 7.8 g/dL 5.9-8.4 [facility] Urine cultureOrdered By: Delta Borges on 11-12-2024 Bacteria identified Cx Nom (U) Culture exhibits no growth. [facility] CBC W/Diff, Automatedon 03- Absolute Lymph 2.28 X10 3/uL Normal 0.83-4.51 [facility] Comment on above: Performed By: #### L 500.4100, L501.9910, L100.0100, L500.4050 #### [facility] [address] [place], [address] Absolute Neut 3.6 X10 3/uL Normal 2.0-7.7 [facility] Comment on above: Performed By: #### L 500.4100, L501.9910, L100.0100, L500.4050 #### [facility] [address] [place], [address] Basophils/100 WBC (Bld) 1.2 % High 0-1 [facility] Comment on above: Performed By: #### L 500.4100, L501.9910, L100.0100, L500.4050 #### [facility] [address] [place], [address] Eosinophils/100 WBC (Bld) 2.1 % Normal 0-5 [facility] Comment on above: Performed By: #### L 500.4100, L501.9910, L100.0100, L500.4050 #### [facility] [address] [place], [address] Erythrocyte distribution width (RBC) [Ratio] 13.2 % Normal 11.6-14.6 [facility] Comment on above: Performed By: #### L 500.4100, L501.9910, L100.0100, L500.4050 #### [facility] [address] [place], [address] Hematocrit (Bld) [Volume fraction] 46.8 % Normal 40-54 [facility] Comment on above: Performed By: #### L 500.4100, L501.9910, L100.0100, L500.4050 #### [facility] [address] [place], [address] Hemoglobin (Bld) [Mass/Vol] 16.2 g/dL Normal 13.0-16.5 [facility] Comment on above: Performed By: #### L 500.4100, L501.9910, L100.0100, L500.4050 #### [facility] [address] [place], [address] IG% 0.400 Normal 0.0-0.9 [facility] Comment on above: Result Comment: IG% - Immature Granulocytes (promyelocytes, myelocytes and metamyelocytes) > 1% indicates that a LEFT SHIFT is Present. Performed By: #### L 500.4100, L501.9910, L100.0100, L500.4050 #### [facility] [address] [place], [address] Lymphocytes/100 WBC (Bld) 33.4 % Normal 19-41 [facility] Comment on above: Performed By: #### L 500.4100, L501.9910, L100.0100, L500.4050 #### [facility] [address] [place], [address] MCH (RBC) [Entitic mass] 33.1 pg High 27.0-32.0 [facility] Comment on above: Performed By: #### L 500.4100, L501.9910, L100.0100, L500.4050 #### [facility] [address] [place], [address] MCHC (RBC) [Mass/Vol] 34.6 g/dL Normal 32-36 [facility] Comment on above: Performed By: #### L 500.4100, L501.9910, L100.0100, L500.4050 #### [facility] [address] [place], [address] MCV (RBC) [Entitic vol] 95.7 fL High 80-94 [facility] Comment on above: Performed By: #### L 500.4100, L501.9910, L100.0100, L500.4050 #### [facility] [address] [place], [address] Monocytes/100 WBC (Bld) 9.7 % Normal 0-10 [facility] Comment on above: Performed By: #### L 500.4100, L501.9910, L100.0100, L500.4050 #### [facility] [address] [place], [address] Neutrophils/100 WBC (Bld) 53.2 % Normal 47-70 [facility] Comment on above: Performed By: #### L 500.4100, L501.9910, L100.0100, L500.4050 #### [facility] [address] [place], [address] Nucleated RBC (Bld) [#/Vol] 0 10*3/uL Normal 0-5 [facility] Comment on above: Performed By: #### L 500.4100, L501.9910, L100.0100, L500.4050 #### [facility] [address] [place], [address] Platelet mean volume (Bld) [Entitic vol] 10.2 fL Normal 6.2-12.0 [facility] Comment on above: Performed By: #### L 500.4100, L501.9910, L100.0100, L500.4050 #### [facility] [address] [place], [address] Platelets (Bld) [#/Vol] 244 10*3/uL Normal 150-450 [facility] Comment on above: Performed By: #### L 500.4100, L501.9910, L100.0100, L500.4050 #### [facility] [address] [place], [address] RBC (Bld) [#/Vol] 4.89 10*6/uL Normal 4.6-6.2 [facility] Comment on above: Performed By: #### L 500.4100, L501.9910, L100.0100, L500.4050 #### [facility] [address] [place], [address] RDW SD 46.6 fl High 35.1-43.9 [facility] Comment on above: Performed By: #### L 500.4100, L501.9910, L100.0100, L500.4050 #### [facility] [address] [place], [address] WBC (Bld) [#/Vol] 6.8 10*3/uL Normal 4.4-11.0 [facility] Comment on above: Performed By: #### L 500.4100, L501.9910, L100.0100, L500.4050 #### [facility] [address] [place], [address] Comprehensive Metabolic Prof gaon 10-21-2024 Albumin [Mass/Vol] 2.2 g/dL Low 3.4-4.8 [facility] Comment on above: Performed By: #### L 500.4100, L501.9910, L100.0100, L500.4050 #### [facility] [address] [place], [address] Albumin/Globulin [Mass ratio] 3.3 {ratio} High 0.9-2.4 [facility] Comment on above: Performed By: #### L 500.4100, L501.9910, L100.0100, L500.4050 #### [facility] [address] [place], [address] ALK PHOS 36 U/L Low 40-129 [facility] Comment on above: Performed By: #### L 500.4100, L501.9910, L100.0100, L500.4050 #### [facility] [address] [place], [address] ALT [Catalytic activity/Vol] 32 U/L Normal <=46 [facility] Comment on above: Performed By: #### L 500.4100, L501.9910, L100.0100, L500.4050 #### [facility] [address] [place], [address] AST [Catalytic activity/Vol] 39 U/L High <=37 [facility] Comment on above: Performed By: #### L 500.4100, L501.9910, L100.0100, L500.4050 #### [facility] [address] [place], [address] BUN/CRE 17.2 RATIO Normal 10-20 [facility] Comment on above: Performed By: #### L 500.4100, L501.9910, L100.0100, L500.4050 #### [facility] [address] [place], [address] Calcium [Mass/Vol] 8.9 mg/dL Normal 7.6-11.0 [facility] Comment on above: Performed By: #### L 500.4100, L501.9910, L100.0100, L500.4050 #### [facility] [address] [place], [address] Chloride [Moles/Vol] 101 mmol/L Normal 98-108 [facility] Comment on above: Performed By: #### L 500.4100, L501.9910, L100.0100, L500.4050 #### [facility] [address] [place], [address] CO2 [Moles/Vol] 25.6 mmol/L Normal 21.0-32.0 [facility] Comment on above: Performed By: #### L 500.4100, L501.9910, L100.0100, L500.4050 #### [facility] [address] [place], [address] Creatinine [Mass/Vol] 0.77 mg/dL Normal 0.70-1.20 [facility] Comment on above: Performed By: #### L 500.4100, L501.9910, L100.0100, L500.4050 #### [facility] [address] [place], [address] GAP 11 Normal 5-15 [facility] Comment on above: Performed By: #### L 500.4100, L501.9910, L100.0100, L500.4050 #### [facility] [address] [place], [address] GFR/1.73 sq M.predicted among non-blacks MDRD (S/P/Bld) [Vol rate/Area] 97 mL/min/{1.73_m2} Normal >60 [facility] Comment on above: Result Comment: mL/m in/1.73m2 CKD-EPI Creatinine Equation (2020) Performed By: #### L 500.4100, L501.9910, L100.0100, L500.4050 #### [facility] [address] [place], [address] Globulin (S) [Mass/Vol] 0.7 g/dL Low 2.2-4.2 [facility] Comment on above: Performed By: #### L 500.4100, L501.9910, L100.0100, L500.4050 #### [facility] [address] [place], [address] Glucose [Mass/Vol] 89 mg/dL Normal 70-99 [facility] Comment on above: Performed By: #### L 500.4100, L501.9910, L100.0100, L500.4050 #### [facility] [address] [place], [address] Potassium [Moles/Vol] 4.5 mmol/L Normal 3.3-5.1 [facility] Comment on above: Performed By: #### L 500.4100, L501.9910, L100.0100, L500.4050 #### [facility] [address] [place], [address] Sodium [Moles/Vol] 138 mmol/L Normal 133-145 [facility] Comment on above: Performed By: #### L 500.4100, L501.9910, L100.0100, L500.4050 #### [facility] [address] [place], [address] T BILI < 0.15 Normal 0.00-1.30 [facility] Comment on above: Performed By: #### L 500.4100, L501.9910, L100.0100, L500.4050 #### [facility] [address] [place], [address] T PROT 2.8 g/dL Low 5.9-8.4 [facility] Comment on above: Performed By: #### L 500.4100, L501.9910, L100.0100, L500.4050 #### [facility] [address] [place], [address] Urea nitrogen [Mass/Vol] 13 mg/dL Normal 4-19 [facility] Comment on above: Performed By: #### L 500.4100, L501.9910, L100.0100, L500.4050 #### [facility] [address] [place], [address] Lipid Profileon 10-21-2024 CHOL:HDL 2.58 Normal [facility] Comment on above: Performed By: #### L 500.4100, L501.9910, L100.0100, L500.4050 #### [facility] [address] [place], [address] Cholesterol [Mass/Vol] 126 mg/dL Normal <=200 [facility] Comment on above: Result Comment: Chol esterol level, Desirable <200 mg/dL Borderline high cholesterol 200-239 mg/dL High cholesterol >=240 mg/dL Recommendations of the NCEP Adult Treatment Panel for the following risk-cutoff thresholds for the [place] population. Performed By: #### L 500.4100, L501.9910, L100.0100, L500.4050 #### [facility] [address] [place], [address] Cholesterol in HDL [Mass/Vol] 49 mg/dL Normal [facility] Comment on above: Result Comment: [place] Cholesterol Education Program (NCEP) guidelines: <40 mg/dL: Low HDL-cholesterol (major risk factor for CHD) >= 60 mg/dL: High HDL-cholesterol (negative risk factor for CHD) HDL-cholesterol is affected by a number of factors, e.g. smoking, exercise, hormones, sex and age. Performed By: #### L 500.4100, L501.9910, L100.0100, L500.4050 #### [facility] [address] [place], [address] Cholesterol in LDL [Mass/Vol] 57 mg/dL Normal [facility] Comment on above: Result Comment: Bord wlybrd=533-337 mg/dL Higher Pvpk=868 mg/dL or greater Performed By: #### L 500.4100, L501.9910, L100.0100, L500.4050 #### [facility] [address] [place], [address] Cholesterol in VLDL [Mass/Vol] 20 mg/dL Normal 5-40 [facility] Comment on above: Performed By: #### L 500.4100, L501.9910, L100.0100, L500.4050 #### [facility] [address] [place], [address] Triglyceride [Mass/Vol] 101 mg/dL Normal [facility] Comment on above: Result Comment: The drugs N-Acetylcysteine and Metamizole may falsely depress this assay. Normal range: <150 mg/dL Borderline High: 150-199 mg/dL High: 200-499 mg/dL Very High: >500 mg/dL Performed By: #### L 500.4100, L501.9910, L100.0100, L500.4050 #### [facility] [address] [facility] [facility] [place], [address] Absolute neutrophil countOrd ered By: Lai Borges on 10-20-2024 Neutrophils (Bld) [#/Vol] 3.6 10*3/uL 2.0-7.7 [facility] Anion gap in Serum or Plasma Ordered By: Lai Borges on 10-20-2024 Anion gap [Moles/Vol] 11 mmol/L 5-15 [facility] BUN/creatinine ratioOrdered By: Lai Borges on 10-20-2024 Urea nitrogen/Creatinine [Mass ratio] 17.2 mg/mg 10-20 [facility] Basophil percentageOrdered B y: Lai Borges on 10-20-2024 Basophils/100 WBC (Bld) 1.2 % High 0-1 [facility] Bilirubin, totalOrdered By: Lai Borges on 10-20-2024 Bilirubin [Mass/Vol] mg/dL 0.00-1.30 [facility] Calculated very low density lipoprotein (VLDL) cholesterol measurementOrdered By: Lai Borges on 10-20-2024 VLDL Cholesterol 20 mg/dL 5-40 [facility] Carbon dioxide, total [Moles /volume] in Central venous bloodOrdered By: Lai Borges on 10-20-2024 CO2 [Moles/Vol] 25.6 mmol/L 21.0-32.0 [facility] Chloride assayOrdered By: Do ra Borges on 10-20-2024 Chloride [Moles/Vol] 101 mmol/L 98-108 [facility] Eosinophil percentageOrdered By: Lai Borges on 10-20-2024 Eosinophils/100 WBC (Bld) 2.1 % 0-5 [facility] Erythrocyte distribution wid th ratioOrdered By: Lai Borges on 10-20-2024 Erythrocyte distribution width (RBC) [Ratio] 13.2 % 11.6-14.6 [facility] Erythrocyte distribution wid th standard deviationOrdered By: Lai Borges on 10-20-2024 Erythrocyte distribution width (RBC) [Entitic vol] 46.6 fL High 35.1-43.9 [facility] GFR/1.73 sq M.predicted bandar g non-blacks MDRD (S/P/Bld) [Vol rate/Area]Ordered By: Lai Borges on 10-20-2024 Estimated GFR (MDRD) Non-Af Amer 97 >60 [facility] Comment on above: mL/min/1.73m2 CKD-EP I Creatinine Equation (2020) Hematocrit Auto (Bld) [Volum e fraction]Ordered By: Lai Borges on 10-20-2024 Hematocrit (Bld) [Volume fraction] 46.8 % 40-54 [facility] Hemoglobin measurementOrdere d By: Lai Borges on 10-20-2024 Hemoglobin (Bld) [Mass/Vol] 16.2 g/dL 13.0-16.5 [facility] Immature granulocytes/100 WB C Auto (Bld)Ordered By: Lai Borges on 10-20-2024 Immature granulocytes/100 WBC (Bld) 0.400 % 0.0-0.9 [facility] Comment on above: IG% - Immature Granu locytes (promyelocytes, myelocytes and metamyelocytes) > 1% indicates that a LEFT SHIFT is Present. LDL calc ser/plasOrdered By: Lai Borges on 10-20-2024 LDL Cholesterol, Calculated 57 mg/dL [facility] Comment on above: Jjvyttjmyl=007-303 m g/dL & Higher Flen=783 mg/dL or greater Laboratory - Chemistry and C hemistry - challengeOrdered By: Lai Borges on 10-20-2024 AST [Catalytic activity/Vol] 39 U/L High <38 [facility] Lymphocytes Auto (Unsp spec) [#/Vol]Ordered By: Lai Borges on 10-20-2024 Lymphocytes (Bld) [#/Vol] 2.28 10*3/uL 0.83-4.51 [facility] Lymphocytes/100 WBC Auto (Un sp spec)Ordered By: Lai Borges on 10-20-2024 Lymphocytes/100 WBC (Bld) 33.4 % 19-41 [facility] MCV (mean corpuscular volume ) determinationOrdered By: Lai Borges on 10-20-2024 MCV (RBC) [Entitic vol] 95.7 fL High 80-94 [facility] Mean corpuscular hemoglobin (MCH) determinationOrdered By: Lai Borges on 10-20-2024 MCH (RBC) [Entitic mass] 33.1 pg High 27.0-32.0 [facility] Mean corpuscular hemoglobin concentration (MCHC) determinationOrdered By: Lai Borges on 10-20-2024 MCHC (RBC) [Mass/Vol] 34.6 g/dL 32-36 [facility] Mean platelet volume determi nationOrdered By: Lai Borges on 10-20-2024 Platelet mean volume (Bld) [Entitic vol] 10.2 fL 6.2-12.0 [facility] Monocyte percentageOrdered B y: Lai Borges on 10-20-2024 Monocytes/100 WBC (Bld) 9.7 % 0-10 [facility] Neutrophil percentageOrdered By: Lai Borges on 10-20-2024 Neutrophils/100 WBC (Bld) 53.2 % 47-70 [facility] Nucleated red blood cell per centageOrdered By: Lai Borges on 10-20-2024 Nucleated RBC/100 WBC (Bld) [Ratio] 0 % 0-5 [facility] PSA, total screeningOrdered By: Lai Borges on 10-20-2024 Prostate Specific Antigen Screen 0.53 ng/mL 0.02-4.00 [facility] Comment on above: This test was perfor med using the [employer] tPSA method. Measured values of a patient sample can vary depending on the testing procedure used. PSA values determined on patient samples by different testing procedures cannot be used interchangeably. If there is a change in PSA assays while monitoring therapy, sequential testing should be performed to confirm baseline values. PSA,Total - Annual Screenon 10-20-2024 PSA,TOT SCREEN 0.53 ng/mL Normal 0.02-4.00 [facility] Comment on above: Result Comment: This test was performed using the [employer] tPSA method. Measured values of a patient??sample can vary depending on the testing procedure used. PSA values determined on patient samples by different testing procedures cannot be used interchangeably. If there is a change in PSA assays while monitoring therapy, sequential testing should be performed to confirm baseline values. Performed By: #### L 500.4100, L501.9910, L100.0100, L500.4050 #### [facility] [address] [place], [place] [address]all [facility] [place], [address] Platelet countOrdered By: Do ra Borges on 10-20-2024 Platelets (Bld) [#/Vol] 244 10*3/uL 150-450 [facility] Potassium (Unsp spec) [Mass/ Vol]Ordered By: Lai Borges on 10-20-2024 Potassium [Moles/Vol] 4.5 mmol/L 3.3-5.1 [facility] RBC Auto (Bld) [#/Vol]Ordere d By: Lai Borges on 10-20-2024 RBC (Bld) [#/Vol] 4.89 10*6/uL 4.6-6.2 [facility] Screening total cholesterol/ high density lipoprotein (HDL) cholesterol ratioOrdered By: Lai Borges on 10-20-2024 Cholesterol.total/Chol esterol in HDL [Mass ratio] 2.58 {ratio} [facility] Serum creatinine measurement (mass/volume)Ordered By: Lai Borges on 10-20-2024 Creatinine [Mass/Vol] 0.77 mg/dL 0.70-1.20 [facility] Serum globulin measurementOr dered By: Lai Borges on 10-20-2024 Globulin (S) [Mass/Vol] 0.7 g/dL Low 2.2-4.2 [facility] Serum glucose measurement (m ass/volume)Ordered By: Lai Borges on 10-20-2024 Glucose [Mass/Vol] 89 mg/dL 70-99 [facility] Serum or plasma alanine trent otransferase (ALT) measurementOrdered By: Lai Borges on 10-20-2024 ALT [Catalytic activity/Vol] 32 U/L <47 [facility] Serum or plasma albumin jere urement (mass/volume)Ordered By: Lai Borges on 10-20-2024 Albumin [Mass/Vol] 2.2 g/dL Low 3.4-4.8 [facility] Serum or plasma albumin/glob ulin mass ratioOrdered By: Lai Borges on 10-20-2024 Albumin/Globulin [Mass ratio] 3.3 {ratio} High 0.9-2.4 [facility] Serum or plasma alkaline acacia sphatase measurementOrdered By: Lai Borges on 10-20-2024 ALP [Catalytic activity/Vol] 36 U/L Low 40-129 [facility] Serum or plasma calcium jere urement (mass/volume)Ordered By: Lai Borges on 10-20-2024 Calcium [Mass/Vol] 8.9 mg/dL 7.6-11.0 [facility] Serum or plasma cholesterol in HDL measurement (mass/volume)Ordered By: Lai Borges on 10-20-2024 Cholesterol in HDL [Mass/Vol] 49 mg/dL >40 [facility] Comment on above: National Cholesterol Education Program (NCEP) guidelines:<40 mg/dL: Low HDL-cholesterol (major risk factor for CHD)>= 60 mg/dL: High HDL-cholesterol (negative risk factor for CHD)HDL-cholesterol is affected by a number of factors, e.g. smoking, exercise, hormones, sex and age. Serum or plasma cholesterol measurement (mass/volume)Ordered By: Lai Borges on 10-20-2024 Cholesterol [Mass/Vol] 126 mg/dL <201 [facility] Comment on above: Cholesterol level, D esirable <200 mg/dLBorderline high cholesterol 200-239 mg/dLHigh cholesterol >=240 mg/dLRecommendations of the NCEP Adult Treatment Panel for the following risk-cutoff thresholds for the [place] population. Serum or plasma urea nitroge n measurement (mass/volume)Ordered By: Lai Borges on 10-20-2024 Urea nitrogen [Mass/Vol] 13 mg/dL 4-19 [facility] Sodium levelOrdered By: Lai Borges on 10-20-2024 Sodium [Moles/Vol] 138 mmol/L 133-145 [facility] Total proteinOrdered By: Delta Borges on 10-20-2024 Protein [Mass/Vol] 2.8 g/dL Low 5.9-8.4 [facility] Triglycerides measurementOrd ered By: Lai Borges on 10-20-2024 Triglyceride [Mass/Vol] 101 mg/dL <199 [facility] Comment on above: The drugs N-Acetylcy steine and Metamizole may falsely depress this assay. Normal range: <150 mg/dLBorderline High: 150-199 mg/dLHigh: 200-499 mg/dLVery High: >500 mg/dL White blood cell (WBC) count Ordered By: Lai Borges on 10-20-2024 WBC (Bld) [#/Vol] 6.8 10*3/uL 4.4-11.0 [facility] Amb Office-Progress Notes-Pr oviderocheko 10-12-2024 [facility]-Progress Notes-Provider Patient: ANGELO GRACIA Age: 68 years Sex: Male : 1955 Associated Diagnoses: None Author: AGUSTINA GONZALEZ, AYANA Visit Information Visit type: Scheduled follow-up. Accompanied by: No one. Source of history: Self. Referral source: Self. History limitation: None. Chief Complaint Follow-up appointment because of coronary artery status post PCI, hypertension, hyperlipidemia and obesity. Patient has gained significant weight during the winter months and has noticed mild shortness of breath with exertion but no chest discomfort. Chart and medication reviewed. Review of Systems Constitutional: No fever, No chills, No sweats. Eye: Negative. Ear/Nose/Mouth/Throat: Negative. Respiratory: No shortness of breath, No cough. Cardiovascular: No chest pain, No syncope. Gastrointestinal: No nausea, No vomiting. Genitourinary: Negative. Gynecologic Hematology/Lymphatics: No bruising tendency, No bleeding tendency. Endocrine: Negative. Musculoskeletal: Negative. Integumentary: No rash, No abrasions. Psychiatric: No anxiety, No depression. Health Status Allergies: Allergies (1) Active Severity Reaction penicillins None Documented Current medications: Home Medications (6) Active aspirin 81 mg oral delayed release tablet 81 mg = 1 tabs, ORAL, DAILY WITH BREAKFAST atorvastatin 40 mg oral tablet 40 mg = 1 tabs, ORAL, DAILY hydrOXYzine hydrochloride 10 mg oral tablet , ORAL, QID LORazepam 0.5 mg oral tablet 0.25 mg = 0.5 tabs, ORAL, ONCE metoprolol succinate 25 mg oral capsule, extended release 25 mg = 1 caps, ORAL, DAILY traZODone 50 mg oral tablet 50 mg = 1 tabs, ORAL, QHS Problem list: Active Problems (7) BMI 40.0-44.9, adult Chest tightness Coronary artery disease HTN (hypertension), benign LV dysfunction Mixed hyperlipidemia Palpitations Histories Past Medical History: No qualifying data available Family History: Patient was adopted. No family history items have been selected or recorded. Procedure history: Left Heart Catheterization, left ventriculogram. ([id number]) on 05/31/2022 at 66 Years. Artherectomy, Drug Eluting Stent- Coronary Artery. ([id number]) on 05/31/2022 at 66 Years. Intravascular Ultrasound-Coronary Artery. ([id number]) on 05/31/2022 at 66 Years. hernia. rt big toe. Social History Social & Psychosocial History Social History Alcohol Current, 3-5 times per week Other caffiene Comment: 2 cupd coffee daily (07/14/2017 14:10 - Aliya Chandler MA) Substance Abuse Denies Substance Abuse Tobacco Electronic Cigarette Psychosocial History No active psychosocial history has been recorded . Physical Examination Temperature 98.6 (10:40) Systolic Blood Pressure 128 (10:57) Diastolic Blood Pressure 72 (10:57) Pulse 61 (10:40) SpO2 No result Respiratory Rate No result VS/Measurements Documented vital signs, Vital Signs (last 24 hrs) Last Charted Heart Rate Apical 61 bpm (OCT 12 10:40) SBP H 128 mmHg (OCT 12 10:57) DBP 72 mmHg (OCT 12 10:57) BMI 41.66 (OCT 12 10:40) General: Alert and oriented, No acute distress. Skin: No cyanosis, Not jaundiced. Eye: Normal conjunctiva. HENT: Normocephalic. Neck: Supple, Non-tender, No carotid bruit, No jugular venous distention, No lymphadenopathy, No thyromegaly. Respiratory: Symmetrical chest wall expansion, No chest wall tenderness. Breath sounds: Bilateral, Anterior, Posterior, No wheezing, No crackles present. Cardiovascular: Normal rate, Regular rhythm, No murmur, No gallop, Good pulses equal in all extremities, Normal peripheral perfusion, No edema. Gastrointestinal: Soft, Non-tender, Normal bowel sounds, No organomegaly. Genitourinary: No costovertebral angle tenderness. Lymphatics: No lymphadenopathy neck, axilla, groin. Musculoskeletal: Normal range of motion, Normal strength, No tenderness, No deformity. Integumentary: Warm. Neurologic: Alert, Oriented, No focal deficits. Psychiatric: Cooperative, Normal judgment. Review / Management No qualifying data available Impression and Plan 1. Coronary artery status post PCI asymptomatic on aspirin 81 mg. 2. Blood pressure is controlled with metoprolol succinate 25 mg. 3. Mixed hyperlipidemia on atorvastatin 40 mg p.o. daily. 4. Morbid obesity with BMI 41.66, diet and exercise discussed. 5. Patient will check with family physician for complete blood profile and for workup with US. 6. Advised to continue same medications and follow-up appointment with me in 4 months. Electronically signed by Dr. Rainer Berrios. [facility] Ambulatory Vitals Height Cr ght-Texton 10-12-2024 Ambulatory Vitals Height Weight-Text Ambulatory Vitals Height Weight Entered On: 10/12/2024 10:58 EDT Performed On: 10/12/2024 10:57 EDT by AYANA BERRIOS MD Vitals/Ht/Wt Systolic Blood Pressure : 128 mmHg (HI) Diastolic Blood Pressure : 72 mmHg AYANA BERRIOS MD - 10/12/2024 10:57 EDT Normal [facility] Discharge Educationon 2024 Discharge Education Cardiovascular Learning About Coronary Artery Disease (CAD) What is coronary artery disease? Coronary artery disease is a condition that occurs when plaque builds up in the arteries that bring oxygen-rich blood to your heart. Plaque is a fatty substance made of cholesterol, calcium, and other substances in the blood. This process is called hardening of the arteries, or atherosclerosis. What happens when you have coronary artery disease? ? Plaque may narrow the coronary arteries. Narrowed arteries cause poor blood flow. This can lead to angina symptoms such as chest pain or discomfort. If blood flow is completely blocked, you could have a heart attack. ? You can slow and reduce the risk of future problems by making changes in your lifestyle. These include quitting smoking and eating heart-healthy foods. ? Treatment, along with changes in your lifestyle, can help you live a longer and healthier life. How can you prevent coronary artery disease? ? Do not smoke. It may be the best thing you can do to prevent coronary artery disease. If you need help quitting, talk to your doctor about stop-smoking programs and medicines. These can increase your chances of quitting for good. ? Be active. Try to do moderate activity at least 2? hours a week. Or try to do vigorous activity at least 1? hours a week. You may want to walk or try other activities, such as running, swimming, cycling, or playing tennis or team sports. ? Eat heart-healthy foods. Eat more fruits and vegetables and less food that contains saturated and trans fats. Limit alcohol, sodium, and sweets. ? Stay at a healthy weight. Lose weight if you need to. ? Manage other health problems such as diabetes, high blood pressure, and high cholesterol. How is coronary artery disease treated? ? Your doctor will suggest that you make lifestyle changes. For example, your doctor may ask you to eat healthy foods, quit smoking, lose extra weight, and be more active. ? You will take medicines that help prevent a heart attack. ? Your doctor may suggest a procedure to open narrowed or blocked arteries. This is called angioplasty. Or your doctor may suggest using healthy blood vessels to create detours around narrowed or blocked arteries. This is called bypass surgery. Follow-up care is a mit[place] part of your treatment and safety. Be sure to make and go to all appointments, and call your doctor if you are having problems. It's also a good idea to know your test results and keep a list of the medicines you take. Where can you learn more? Go to https://www.healthwise.net /patientEd Enter C643 in the search box to learn more about Learning About Coronary Artery Disease (CAD). Current as of: August 06, 2021 Content Version: 13.3 ? [employer]. Care instructions adapted under license by your healthcare professional. If you have questions about a medical condition or this instruction, always ask your healthcare professional. [employer] disclaims any warranty or liability for your use of this information. [facility] Provider Letter - Ambulatory on 10-12-2024 Provider Letter - Ambulatory LAI BORGES, [address] [place] [address] [place], [place] [id number] RE: ANGELO GRACIA - 1955 Dear LAI BORGES This document is confidential and intended solely for the use of the individual or entity to which they are addressed. If you are not the named addressee, please disregard and do not disseminate, distribute or copy this information. If you are not the intended recipient you are notified that any disclosure of this information and its contents are strictly prohibited. If you have any questions about this document, please contact the office. Sincerely, AGUSTINA GONZALEZ, AYANA [facility] The following document(s) were included in the letter: October 12, 2024 10:58:00 EDT - (10/12/2024) Cardiology Office Note with BMI [facility] Provider Letter - Ambulatory on 06-02-2024 Provider Letter - Ambulatory LAI BORGES, [address] [address] RE: ANGELO GRACIA - 1955 05/25/2024 Dear LAI BORGES This document is confidential and intended solely for the use of the individual or entity to which they are addressed. If you are not the named addressee, please disregard and do not disseminate, distribute or copy this information. If you are not the intended recipient you are notified that any disclosure of this information and its contents are strictly prohibited. If you have any questions about this document, please contact the office. Sincerely, Deborah Kirk MA [facility] The following document(s) were included in the letter: May 25, 2024 19:04:00 EDT - (05/25/2024) Pharmocologic (non-walking) Stress Test with Myocardial Perfusion Imaging Normal [facility] Stress Test Reporton 024 Stress Test Report Patient: Tanika GRACIA Age: 68 years Sex: Male : 1955 Associated Diagnoses: None Author: KING HODGES MD Exam Indication: Shortness of breath Date of Exam: 05/25/2024 Referring Physician: Rainer Berrios Clinical History: 68-year-old man with known coronary disease hypertension hyperlipidemia has been having new onset exertional dyspnea Procedure: The supervising entry level administrative assistant, Rainer Berrios, reviewed the patient's baseline ECG prior to starting Lexiscan protocol. Pharmacologic stress testing was performed by injecting the patient through IV with 0.4mg/5mL regadenoson (Lexiscan) bolus dose followed by a 5 mL saline flush. After an 8-12 second delay, the patient was given the radioactive tracer followed again by a 5 mL saline flush. The patient was not walked on the treadmill due to arthritis. The patient was monitored for several minutes. Patient's heart rate and blood pressure response to exercise was adequate. The resting ECG shows normal sinus rhythm and post stress EKG shows no ST segment changes and no ectopy The patient was given 9.4 mCi of Tc-99m sestamibi IV for evaluation of myocardial function and perfusion rest. Approximately 30 minutes after injection, the patient underwent SPECT imaging. The stress images were acquired approximately 30 minutes after injection of 31.0 mCi of Tc-99m sestamibi IV. The stress SPECT study was also gated to evaluate regional wall motion and calculate the left ventricular ejection fraction. The data was reconstructed in short, horizontal long and vertical long axis views, and tomographic slices were generated. Findings: The overall technical quality of the images is good. Stress images demonstrated slightly diminished perfusion in the inferior wall but the rest of the left ventricle is perfused normally. The rest images demonstrated subtle reversible ischemia seen in the inferior wall in the distribution of the right coronary artery. The stress gated images demonstrated normal size and function of the left ventricle and the ejection fraction is 70% and no wall motion abnormalities have been noted. Impression: 1. Subtle reversible ischemia seen in the inferior wall involving the right coronary artery 2. Normal size and function of the left ventricle 3. Estimated ejection fraction is 70% with no wall motion abnormalities Copy of Final Report Sent to: [facility] Date of Interpretation: 05/25/2024 Date of Final Report: 05/25/2024 [facility] Phone Msgon 05-28-2024 Phone Msg - From: Deborah Kirk MA To: AYANA BERRIOS MD; Sent: 05/26/2024 09:33:09 EDT Caller Name: ANGELO GRACIA; Caller Number: H WHAT WOULD YOU LIKE ME TO TELL ANGELO, ABOUT HIS STRESS TEST? From: AYANA BERRIOS MD To: Deborah Kirk MA; Sent: 05/26/2024 09:55:23 EDT Subject: RE: Actions: Message Caller Name: ANGELO GRACIA; Caller Number: H The nuclear stress test revealed very subtle reversible ischemia in the distribution of right coronary artery. Advised to monitor symptoms closely if continue having the chest discomfort we will proceed with coronary angiography. Thank you NOTIFIED [facility] Stress Test Reporton Stress Test Report Patient: Tanika GRACIA Age: 68 years Sex: Male : 1955 Associated Diagnoses: None Author: AYANA BERRIOS MD Date of Exam: 11/24/2023 Referring Physician: Dr. Rainer Berrios Reason for Stress Test: Shortness of breath Findings: 1. The baseline ECG revealed normal sinus rhythm at resting heart rate of 54 bpm. 2. The resting blood pressure was 140/80 mmHg and remained stable throughout the test. 3. The Lexiscan was injected, patient monitored closely and Cardiolite injected. 4. Patient had no symptoms during the Lexiscan injection. 5. The 12 ECG taken during the test did not reveal any ST segment abnormalities. Conclusion: 1. No ST segment changes seen during the Lexiscan injection. 2. The nuclear report to follow separately. Electronically signed by Dr. Rainer Berrios. Copy of Final Report Sent to: [] Date of Interpretation: 11/24/2023 Date of Final Report: 11/24/2023 [facility] Office-Progress Notes-Pr ovideron 05-17-2024 [facility] Office-Progress Notes-Provider Patient: ANGELO GRACIA Age: 68 years Sex: Male : 1955 Associated Diagnoses: None Author: AYANA BERRIOS MD Visit Information Visit type: Scheduled follow-up. Accompanied by: No one. Source of history: Self. Referral source: Self. History limitation: None. Chief Complaint Follow-up appointment because of coronary artery status post PCI, hypertension, hyperlipidemia and obesity. Patient is doing very well he still getting some shortness of breath on exertion but no chest pain. Patient became very concerned after reviewing the CT report which revealed moderate coronary artery calcification. Chart and medication reviewed. Review of Systems Constitutional: No fever, No chills, No sweats. Eye: Negative. Ear/Nose/Mouth/Throat: Negative. Respiratory: No shortness of breath, No cough. Cardiovascular: No chest pain, No syncope. Gastrointestinal: No nausea, No vomiting. Genitourinary: Negative. Gynecologic Hematology/Lymphatics: No bruising tendency, No bleeding tendency. Endocrine: Negative. Musculoskeletal: Negative. Integumentary: No rash, No abrasions. Psychiatric: No anxiety, No depression. Health Status Allergies: Allergies (1) Active Severity Reaction penicillins None Documented Current medications: Home Medications (6) Active aspirin 81 mg oral delayed release tablet 81 mg = 1 tabs, ORAL, DAILY WITH BREAKFAST atorvastatin 40 mg oral tablet 40 mg = 1 tabs, ORAL, DAILY hydrOXYzine hydrochloride 10 mg oral tablet , ORAL, QID LORazepam 0.5 mg oral tablet 0.25 mg = 0.5 tabs, ORAL, ONCE metoprolol succinate 25 mg oral capsule, extended release 25 mg = 1 caps, ORAL, DAILY traZODone 50 mg oral tablet 50 mg = 1 tabs, ORAL, QHS Problem list: Active Problems (7) BMI 40.0-44.9, adult Chest tightness Coronary artery disease HTN (hypertension), benign LV dysfunction Mixed hyperlipidemia Palpitations Histories Past Medical History: No qualifying data available Family History: Patient was adopted. No family history items have been selected or recorded. Procedure history: Left Heart Catheterization, left ventriculogram. ([id number]) on 05/31/2022 at 66 Years. Artherectomy, Drug Eluting Stent- Coronary Artery. ([id number]) on 05/31/2022 at 66 Years. Intravascular Ultrasound-Coronary Artery. ([id number]) on 05/31/2022 at 66 Years. hernia. rt big toe. Social History Social & Psychosocial History Social History Alcohol Current, 3-5 times per week Other caffiene Comment: 2 cupd coffee daily (07/14/2017 14:10 - Aliya Chandler MA) Substance Abuse Denies Substance Abuse Tobacco Electronic Cigarette Psychosocial History No active psychosocial history has been recorded . Physical Examination Temperature 98.4 (14:54) Systolic Blood Pressure 134 (15:11) Diastolic Blood Pressure 72 (15:11) Pulse 60 (14:54) SpO2 No result Respiratory Rate No result VS/Measurements Documented vital signs, Vital Signs (last 24 hrs) Last Charted Heart Rate Apical 60 bpm (MAY 17 14:54) SBP 134 mmHg (MAY 17 15:11) DBP 72 mmHg (MAY 17 15:11) BMI 39.77 (MAY 17 14:54) General: Alert and oriented, No acute distress. Skin: No cyanosis, Not jaundiced. Eye: Normal conjunctiva. HENT: Normocephalic. Neck: Supple, Non-tender, No carotid bruit, No jugular venous distention, No lymphadenopathy, No thyromegaly. Respiratory: Symmetrical chest wall expansion, No chest wall tenderness. Breath sounds: Bilateral, Anterior, Posterior, No wheezing, No crackles present. Cardiovascular: Normal rate, Regular rhythm, No murmur, No gallop, Good pulses equal in all extremities, Normal peripheral perfusion, No edema. Gastrointestinal: Soft, Non-tender, Normal bowel sounds, No organomegaly. Genitourinary: No costovertebral angle tenderness. Lymphatics: No lymphadenopathy neck, axilla, groin. Musculoskeletal: Normal range of motion, Normal strength, No tenderness, No deformity. Integumentary: Warm. Neurologic: Alert, Oriented, No focal deficits. Psychiatric: Cooperative, Normal judgment. Review / Management No qualifying data available Impression and Plan 1. Coronary artery status post PCI with mild shortness of breath. 2. Blood pressure is controlled with metoprolol succinate. 3. Hyperlipidemia on atorvastatin. 4. Obesity with BMI 39.77, diet and exercise discussed. 5. Will schedule nuclear stress test and follow-up appointment 4 months or sooner if needed. Electronically signed by Dr. Rainer Berrios. [facility] Ambulatory Vitals Height Cr ght-Texton 05-17-2024 Ambulatory Vitals Height Weight-Text Ambulatory Vitals Height Weight Entered On: 05/17/2024 15:11 EDT Performed On: 05/17/2024 15:11 EDT by AYANA BERRIOS MD Vitals/Ht/Wt Systolic Blood Pressure : 134 mmHg Diastolic Blood Pressure : 72 mmHg AGUSTINA GONZALEZ, AYANA - 05/17/2024 15:11 EDT [facility] Comprehensive Intake - Texto n 05-17-2024 Comprehensive Intake - Text Comprehensive Intake Entered On: 05/17/2024 14:56 EDT Performed On: 05/17/2024 14:54 EDT by Apolonia Light MA Summary Chief Complaint : OFFICE CHECK UP Bladder Control Issues? : No Urine Leakage? : No Presence or absence of urinary incontinence assessed : Yes CPT-II Medication list doc'd in medical record : Yes Influenza immunization administered or previously received : No Pneumococcal vaccine administered or previously received : No Apolonia Light MA - 05/17/2024 14:54 EDT Measurements Ht/Wt Measurement Refused by Patient? : No Weight Measured : 126 kg(Converted to: 277 lb 13 oz, 277.782 lb) Height/Length Measured : 178 cm(Converted to: 5 ft 10 in, 70.08 in) Body Mass Index Measured : 39.77 kg/m2 Body Mass Index documented : Yes Weight Measured - lbs : 278 lb(Converted to: 278 lb 0 oz, 126 kg) Height/Length Measured - in : 70 in(Converted to: 5 ft 10 in, 178 cm) Body Mass Index Measured [place] Citizen : 39.88 kg/m2 BSA [place] Citizen : 2.49 m2 Apolonia Light MA - 05/17/2024 14:54 EDT Vitals Require BP : No Apical Heart Rate : 60 bpm Temperature Temporal (F) : 98.4 degF(Converted to: 37 degC) Pain Present : No actual or suspected pain Pain : 0 Pain severity quantified : No pain present Apolonia Light MA - 05/17/2024 14:54 EDT Infection Screening Travel outside [place] within past 21 days : No Close Contact with a person with TB : No Have you been diagnosed with TB : No Have you ever been treated for TB : No Positive COVID test in the last 10 days? : No Exposure to and/or close contact with a person who has a laboratory-confirmed COVID test within the last 48 hours. : No Coronavirus New Symptoms w/o Cause : No Apolonia Light MA - 05/17/2024 14:54 EDT Depression Screening Is patient currently : None of the Below Feeling Down, Depressed, Hopeless : Not at all Little Interest - Pleasure in Activities : Not at all Initial Depression Screen Score : 0 Depression Screening Score 0 : No Apolonia Light MA - 05/17/2024 14:54 EDT Falls Risk Assessment Is the patient ambulatory (mobile) : Yes Have you had 2 or more falls in the past year : No Have you had a fall within the past year that has caused an injury : No Patient screen for fall risk : no falls in last year OR 1 fall with no injury in last year Apolonia Light MA L - 05/17/2024 14:54 EDT [facility] Discharge Educationon 2023 Discharge Education Cardiovascular Learning About Coronary Artery Disease (CAD) What is coronary artery disease? Coronary artery disease is a condition that occurs when plaque builds up in the arteries that bring oxygen-rich blood to your heart. Plaque is a fatty substance made of cholesterol, calcium, and other substances in the blood. This process is called hardening of the arteries, or atherosclerosis. What happens when you have coronary artery disease? ? Plaque may narrow the coronary arteries. Narrowed arteries cause poor blood flow. This can lead to angina symptoms such as chest pain or discomfort. If blood flow is completely blocked, you could have a heart attack. ? You can slow and reduce the risk of future problems by making changes in your lifestyle. These include quitting smoking and eating heart-healthy foods. ? Treatment, along with changes in your lifestyle, can help you live a longer and healthier life. How can you prevent coronary artery disease? ? Do not smoke. It may be the best thing you can do to prevent coronary artery disease. If you need help quitting, talk to your doctor about stop-smoking programs and medicines. These can increase your chances of quitting for good. ? Be active. Try to do moderate activity at least 2? hours a week. Or try to do vigorous activity at least 1? hours a week. You may want to walk or try other activities, such as running, swimming, cycling, or playing tennis or team sports. ? Eat heart-healthy foods. Eat more fruits and vegetables and less food that contains saturated and trans fats. Limit alcohol, sodium, and sweets. ? Stay at a healthy weight. Lose weight if you need to. ? Manage other health problems such as diabetes, high blood pressure, and high cholesterol. How is coronary artery disease treated? ? Your doctor will suggest that you make lifestyle changes. For example, your doctor may ask you to eat healthy foods, quit smoking, lose extra weight, and be more active. ? You will take medicines that help prevent a heart attack. ? Your doctor may suggest a procedure to open narrowed or blocked arteries. This is called angioplasty. Or your doctor may suggest using healthy blood vessels to create detours around narrowed or blocked arteries. This is called bypass surgery. Follow-up care is a mitchell part of your treatment and safety. Be sure to make and go to all appointments, and call your doctor if you are having problems. It's also a good idea to know your test results and keep a list of the medicines you take. Where can you learn more? Go to https://www.[employer].net /patientEd Enter C643 in the search box to learn more about Learning About Coronary Artery Disease (CAD). Current as of: August 06, 2021 Content Version: 13.3 ? [employer]. Care instructions adapted under license by your healthcare professional. If you have questions about a medical condition or this instruction, always ask your healthcare professional. [employer] disclaims any warranty or liability for your use of this information. [facility] Provider Letter - Ambulatory on 05-17-2024 Provider Letter - Ambulatory LAI BORGES, [address] [place] [address] RE: ANGELO GRACIA - 1955 Dear LAI BORGES This document is confidential and intended solely for the use of the individual or entity to which they are addressed. If you are not the named addressee, please disregard and do not disseminate, distribute or copy this information. If you are not the intended recipient you are notified that any disclosure of this information and its contents are strictly prohibited. If you have any questions about this document, please contact the office. Sincerely, AGUSTINA GONZALEZ, THAN [facility] The following document(s) were included in the letter: May 17, 2024 15:11:00 EDT - (05/17/2024) Cardiology Office Note with BMI [facility] CT Chest for screening WO co ntraston 04-29-2024 IMPRESSION: LungRADS category: 1 LungRADS modifier: Significant other (S), coronary artery calcification, moderate or severe LungRADS 0 reason: n/a Recommendations: Continue annual screening with LDCT in 12 months. Other actionable findings: Reference: [employer]. Lung CT Screening Reporting and Data System (Lung-RADS). Available at: http://www.acr.org/Quality -Safety/Resources/LungRADS Ruby On Rails Engineer: JOSE Transcribe Date/Time: Apr 29 2024 3:23P Dictated by : ASTON KHALIL MD This examination was interpreted and the report reviewed and electronically signed by: ASTON KHALIL MD on Apr 29 2024 3:28PM [facility] RADIOLOG[facility] * * *Final Report* * * DATE OF EXAM: Apr 29 2024 10:50AM [facility] - CT LUNG SCREEN WO IVCON / PROCEDURE REASON: multiple diagnoses * * * * Physician Interpretation * * * * EXAMINATION: CHEST CT WITHOUT CONTRAST (LOW-DOSE CT LUNG CANCER SCREENING PROTOCOL) CLINICAL HISTORY: Lung cancer LDCT screening ? absence of signs or symptoms of lung cancer. Personal history of nicotine dependence. Baseline (initial) Technique: Spiral CT acquisition of the chest from the thoracic inlet to the upper abdomen without contrast. MQ: CTLCS_6 Patient characteristics: * Bjba-rc-Whzer: 1955; Age at exam: 68 years * Gender: Male * Lung Disease: Asymptomatic (no signs or symptoms of lung disease) * Number of Pack Years: 63 * Current smoker (=0) or Number of Years since Quit: 13 * Ordering provider and NPI: LCIFF SOLITARIO [id number] * Interpreting radiologist and NPI: Laura [id number] Exam acquisition parameters: * Exam Date: 04/29/2024 10:50 AM * Site: [facility] * * CT System Poured Concrete Wall Technician: AdAdapted * CT System Model: WiSpry * Tube Current-Time (mA-sec): 75 * Peak Voltage (kV): 120V * Scan Time (sec): 4.31 * Scan Volume (z-length, cm): 28.90 * Pitch: 0.984 * Slice Thickness (mm): 1.25 * CT Dose-Length Product: 105 mGy*cm * CT Dose Index: 3.14mGy * CT Dose Reduction Method: Automated exposure control(AEC) and iterative recon COMPARISON: No prior CT chest is available for comparison. RESULT: Are nodules present? No If No, go to IMPRESSION. If yes, proceed with characterization of the FIVE largest nodules. Other lung nodule comments: None Other findings: The central airways are patent without evidence of endobronchial lesion. Mild bibasilar dependent atelectasis is seen. There is no acute focal lung consolidation. There is no pleural effusion or pneumothorax. No enlarged supraclavicular, axillary, mediastinal or hilar lymph nodes are seen. The aorta and main pulmonary artery are normal in course and caliber. The heart size is normal. There is no pericardial effusion. The thyroid gland is unremarkable. The esophagus is nondilated. The soft tissues of the chest wall are unremarkable. The visible portion of the upper abdomen is unremarkable. No destructive bone lesion is seen. Degenerative changes are seen in the thoracic spine. Emphysema: Trivial (<5%), Paraseptal, Upper lobe Coronary Artery Calcifications: Circumflex Mild; Left Anterior Descending Moderate; Right Coronary Moderate Incidental coronary calcium as automatically processed and calculated using AI: Total Coronary Calcium Score = [100+] Agatston Units Percentile Rank (age and gender matched relative to reference population): [75th-100th] percentile* [* https://www.woods-nhlbi.org /calcium/input.aspx] Localizer images: No additional findings. [facility] Provider, [facility] Ericethan daugherty [place] - 04/29/2024 * * *Final Report* * * DATE OF EXAM: Apr 29 2024 10:50AM [facility] - CT LUNG SCREEN WO IVCON / PROCEDURE REASON: multiple diagnoses * * * * Physician Interpretation * * * * EXAMINATION: CHEST CT WITHOUT CONTRAST (LOW-DOSE CT LUNG CANCER SCREENING PROTOCOL) CLINICAL HISTORY: Lung cancer LDCT screening ? absence of signs or symptoms of lung cancer. Personal history of nicotine dependence. Baseline (initial) Technique: Spiral CT acquisition of the chest from the thoracic inlet to the upper abdomen without contrast. MQ: CTLCS_6 Patient characteristics: * Kbsw-lv-Kzoio: 1955; Age at exam: 68 years * Gender: Male * Lung Disease: Asymptomatic (no signs or symptoms of lung disease) * Number of Pack Years: 63 * Current smoker (=0) or Number of Years since Quit: 13 * Ordering provider and NPI: CLIFF SOLITARIO [id number] * Interpreting radiologist and NPI: Laura [id number] Exam acquisition parameters: * Exam Date: 04/29/2024 10:50 AM * Site: [facility] * * CT System Poured Concrete Wall Technician: AdAdapted * CT System Model: WiSpry * Tube Current-Time (mA-sec): 75 * Peak Voltage (kV): 120V * Scan Time (sec): 4.31 * Scan Volume (z-length, cm): 28.90 * Pitch: 0.984 * Slice Thickness (mm): 1.25 * CT Dose-Length Product: 105 mGy*cm * CT Dose Index: 3.14mGy * CT Dose Reduction Method: Automated exposure control(AEC) and iterative recon COMPARISON: No prior CT chest is available for comparison. RESULT: Are nodules present? No If No, go to IMPRESSION. If yes, proceed with characterization of the FIVE largest nodules. Other lung nodule comments: None Other findings: The central airways are patent without evidence of endobronchial lesion. Mild bibasilar dependent atelectasis is seen. There is no acute focal lung consolidation. There is no pleural effusion or pneumothorax. No enlarged supraclavicular, axillary, mediastinal or hilar lymph nodes are seen. The aorta and main pulmonary artery are normal in course and caliber. The heart size is normal. There is no pericardial effusion. The thyroid gland is unremarkable. The esophagus is nondilated. The soft tissues of the chest wall are unremarkable. The visible portion of the upper abdomen is unremarkable. No destructive bone lesion is seen. Degenerative changes are seen in the thoracic spine. Emphysema: Trivial (<5%), Paraseptal, Upper lobe Coronary Artery Calcifications: Circumflex Mild; Left Anterior Descending Moderate; Right Coronary Moderate Incidental coronary calcium as automatically processed and calculated using AI: Total Coronary Calcium Score = [100+] Agatston Units Percentile Rank (age and gender matched relative to reference population): [75th-100th] percentile* [* https://www.woods-nhlbi.org /calcium/input.aspx] Localizer images: No additional findings. IMPRESSION IMPRESSION: LungRADS category: 1 LungRADS modifier: Significant other (S), coronary artery calcification, moderate or severe LungRADS 0 reason: n/a Recommendations: Continue annual screening with LDCT in 12 months. Other actionable findings: Reference: [employer]. Lung CT Screening Reporting and Data System (Lung-RADS). Available at: http://www.acr.org/Quality -Safety/Resources/LungRADS Ruby On Rails Engineer: JOSE Transcribe Date/Time: Apr 29 2024 3:23P Dictated by : ASTON KHALIL MD This examination was interpreted and the report reviewed and electronically signed by: ASTON KHALIL MD on Apr 29 2024 3:28PM EST [facility] Radiology Study observation (narrative) [facility] CT Chest for screening WO co ntrastOrdered By: [facility] Provider on 04-29-[address] [facility] [address] LUNG SCREEN WO IVCONon CT LUNG SCREEN WO IVCON * * *Final Report* * * DATE OF EXAM: Apr 29 2024 10:50AM [facility] - CT LUNG SCREEN WO IVCON / PROCEDURE REASON: multiple diagnoses * * * * Physician Interpretation * * * * EXAMINATION: CHEST CT WITHOUT CONTRAST (LOW-DOSE CT LUNG CANCER SCREENING PROTOCOL) CLINICAL HISTORY: Lung cancer LDCT screening ? absence of signs or symptoms of lung cancer. Personal history of nicotine dependence. Baseline (initial) Technique: Spiral CT acquisition of the chest from the thoracic inlet to the upper abdomen without contrast. MQ: CTLCS_6 Patient characteristics: * Racm-la-Sjvky: 1955; Age at exam: 68 years * Gender: Male * Lung Disease: Asymptomatic (no signs or symptoms of lung disease) * Number of Pack Years: 63 * Current smoker (=0) or Number of Years since Quit: 13 * Ordering provider and NPI: CLIFF SOLITARIO [id number] * Interpreting radiologist and NPI: Laura [id number] Exam acquisition parameters: * Exam Date: 04/29/2024 10:50 AM * Site: [facility] * * CT System Poured Concrete Wall Technician: AdAdapted * CT System Model: WiSpry * Tube Current-Time (mA-sec): 75 * Peak Voltage (kV): 120V * Scan Time (sec): 4.31 * Scan Volume (z-length, cm): 28.90 * Pitch: 0.984 * Slice Thickness (mm): 1.25 * CT Dose-Length Product: 105 mGy*cm * CT Dose Index: 3.14mGy * CT Dose Reduction Method: Automated exposure control(AEC) and iterative recon COMPARISON: No prior CT chest is available for comparison. RESULT: Are nodules present? No If No, go to IMPRESSION. If yes, proceed with characterization of the FIVE largest nodules. Other lung nodule comments: None Other findings: The central airways are patent without evidence of endobronchial lesion. Mild bibasilar dependent atelectasis is seen. There is no acute focal lung consolidation. There is no pleural effusion or pneumothorax. No enlarged supraclavicular, axillary, mediastinal or hilar lymph nodes are seen. The aorta and main pulmonary artery are normal in course and caliber. The heart size is normal. There is no pericardial effusion. The thyroid gland is unremarkable. The esophagus is nondilated. The soft tissues of the chest wall are unremarkable. The visible portion of the upper abdomen is unremarkable. No destructive bone lesion is seen. Degenerative changes are seen in the thoracic spine. Emphysema: Trivial (<5%), Paraseptal, Upper lobe Coronary Artery Calcifications: Circumflex Mild; Left Anterior Descending Moderate; Right Coronary Moderate Incidental coronary calcium as automatically processed and calculated using AI: Total Coronary Calcium Score = [100+] Agatston Units Percentile Rank (age and gender matched relative to reference population): [75th-100th] percentile* [* https://www.woods-nhlbi.org /calcium/input.aspx] Localizer images: No additional findings. IMPRESSION: LungRADS category: 1 LungRADS modifier: Significant other (S), coronary artery calcification, moderate or severe LungRADS 0 reason: n/a Recommendations: Continue annual screening with LDCT in 12 months. Other actionable findings: Reference: [employer]. Lung CT Screening Reporting and Data System (Lung-RADS). Available at: http://www.acr.org/Quality -Safety/Resources/LungRADS Ruby On Rails Engineer: JOSE Transcribe Date/Time: Apr 29 2024 3:23P Dictated by : ASTON KHALIL MD This examination was interpreted and the report reviewed and electronically signed by: ASTON KHALIL MD on Apr 29 2024 3:28PM EST [id number] [facility] CNOVon 04-07-2024 CNOV Office Visit ([facility] ) -- ANGELO GRACIA ([id number]) 1955 Date Time Provider Department 04/07/24 10:30 AM CLIFF SOLITARIO [facility] During your visit today, we recorded the following information about you: Pulse Blood pressure Weight 59/minute 153/75 128.6 kg Cliff Solitario APRN.CNP 04/07/2024 11:39 AM Signed LUNG SCREENING VISIT PRIMARY CARE PHYSICIAN: Lai Borges APRN.SUPERVISOR EDUCATION PULMONARY PROVIDER: none Results will be communicated via letter or electronic record if applicable. Visit Delivery: In Person Patient Visit Type: New to Screening Current or Ex-smoker? ex Exam Type: baseline LDCT Number of Pack Years: 63 Current smoker (=0) or Number of Years since Quit: 13 REQUESTER: The referring provider advised the patient to have screening. HISTORY OF PRESENT ILLNESS: Angelo Gracia is a 68 year old Former smoker who presents for lung screening. E cigarette. Respiratory symptoms include: SOB: No Chest tightness: No Coughing: No, throat clearing Hemoptysis: No Wheezing: Yes, sometimes Fever/Chills: No Recent Respiratory Infection: No Unintentional weight loss: No Last 6 Encounter Wt Readings: Date: Wt: 04/07/2024 128.6 kg (283 lb 8.2 oz) 04/25/2018 117.9 kg (260 lb) 04/20/2018 117.9 kg (260 lb) Exercise bike tolerates well. 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 ECOG PERFORMANCE STATUS: 0- Fully active, able to carry on all pre-disease performance w/o restriction. Modified Medical Research Three Affiliated Dyspnea Scale (MMRC) I only get breathless with strenous exercise 0 PAST MEDICAL HISTORY No date: Kidney stones PAST SURGICAL HISTORY No date: HERNIA REPAIR HX No date: PCI/STENT; Right History reviewed. No pertinent family history. aspirin 81 mg chewable tablet Take 81 mg by mouth once daily. atorvastatin (LIPITOR) 40 mg tablet Take 40 mg by mouth once daily. metoprolol succinate ER (TOPROL XL) 25 mg 24 hr tablet Take 12.5 mg by mouth once daily. hydrOXYzine HCl (ATARAX) 10 mg tablet Take 10 mg by mouth three times a day as needed for anxiety. trazodone HCl (TRAZODONE ORAL) Take 25 mg by mouth daily at bedtime. tamsulosin ER (FLOMAX) 0.4 mg cap Take 1 capsule by mouth daily at bedtime for 7 days. (Patient not taking: Reported on 04/07/2024) ketorolac (TORADOL) 10 mg tablet Take 1 tablet by mouth every 6 hours as needed. (Patient not taking: Reported on 04/07/2024) ALLERGIES Allergen Reactions Penicillin Hives The medications and allergies were reviewed and reconciled for this patient and deemed current. Lung Cancer Risk Factors: 1.Tobacco Use: Start Age 13, Quit Age: 55, Average packs per day 1.5, Pack Years 63 2. Passive Smoke Exposure: Yes, as a Child and as an Adult 3. Personal hx of malignancy: Yes, Type of Cancer: Other smoking-related cancers 4. 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 Race: White 6. Education: Some College 7. BMI:Body mass index is 40.68 kg/m?. Patient-entered Height: 5'10" Patient-entered Weight: 283 pounds 8. COPD: No 9. Pneumonia in the past 5 years: No 10. Is there a history of lung cancer in a first degree relative? No 11. Is there a history of lung cancer in a non-first degree relative? No 12. Is there a history of any other cancer in a first degree relative? No Health Maintenance Immunization History Administered Date(s) Administered COVID-19 original vaccine, age 12+ yr, monovalent (PFIZER-BIONTECH - MAS TOP) 01/24/2022 COVID-19 original vaccine, age 12+ yr, monovalent (PFIZER-BIONTECH - PURPLE TOP) 10/25/2020 11/15/2020 07/18/2021 Colonoscopy: Mammogram: DATA REVIEW I have directly visualized the testing documented: none Prior Imaging: Last CT/CTA Chest/Lungs No resulted procedures found. Last CT Chest - Impression Only No resulted procedures found. Last XR Chest - Impression Only XR CHEST 2V FRONTAL/LAT Collected: 05/07/2022 1:09 PM (Final result) Impression: IMPRESSION: No acute radiographic abnormality. ... Pulmonary Function Testing: No textual results found for the specified procedure(s). PHYSICAL EXAM: BP 153/75 Pulse (!) 59 Wt 128.6 kg (283 lb 8.2 oz) SpO2 97% BMI 40.68 kg/m? Deferred ASSESSMENT and RECOMMENDATIONS: 1. Screening for lung cancer: Six year risk for lung cancer: 3.02% Https://takokat.ResearchGate/ [place] Citizen/result/male_[email or web address]_yes_ unknown [email or web address] [email or web address] https://youtu.be/xFaVbGhSb [email or web address] I have determined that the patient is eligible for a low dose CT based on age, absence of signs or symptoms of lung cancer, and total pack years: Yes. The patient and I engaged in shared decision making, including the use of one or more decision aids, to include benefits, harms, follow-up diagnostic testing, over-diagnosis, false positive rate, and total radiation e (more content not included)... [facility] Office-Progress Notes-Pr ovideron 02-24-2024 [facility] Office-Progress Notes-Provider Patient: ANGELO GRACIA Age: 68 years Sex: Male : 1955 Associated Diagnoses: None Author: AGUSTINA GONZALEZ, AYANA Visit Information Visit type: Scheduled follow-up. Accompanied by: No one. Source of history: Self. Referral source: Self. History limitation: None. Chief Complaint Follow-up appointment because of coronary artery status post PCI, hypertension, hyperlipidemia and elevated BMI. Patient has been doing very well and denies any cardiac symptoms except mild short of breath which is stable. Patient has been monitoring his blood pressure at home which is running somewhat high in upper 140s at times. Chart and medication reviewed. Review of Systems Constitutional: No fever, No chills, No sweats. Eye: Negative. Ear/Nose/Mouth/Throat: Negative. Respiratory: No shortness of breath, No cough. Cardiovascular: No chest pain, No syncope. Gastrointestinal: No nausea, No vomiting. Genitourinary: Negative. Gynecologic Hematology/Lymphatics: No bruising tendency, No bleeding tendency. Endocrine: Negative. Musculoskeletal: Negative. Integumentary: No rash, No abrasions. Psychiatric: No anxiety, No depression. Health Status Allergies: Allergies (1) Active Severity Reaction penicillins None Documented Current medications: Home Medications (7) Active aspirin 81 mg oral delayed release tablet 81 mg = 1 tabs, ORAL, DAILY WITH BREAKFAST atorvastatin 40 mg oral tablet 40 mg = 1 tabs, ORAL, DAILY clopidogrel 75 mg oral tablet 75 mg = 1 tabs, ORAL, DAILY hydrOXYzine hydrochloride 10 mg oral tablet , ORAL, QID LORazepam 0.5 mg oral tablet 0.25 mg = 0.5 tabs, ORAL, ONCE metoprolol succinate 25 mg oral capsule, extended release 25 mg = 1 caps, ORAL, DAILY traZODone 50 mg oral tablet 50 mg = 1 tabs, ORAL, Q Problem list: Active Problems (7) BMI 40.0-44.9, adult Chest tightness Coronary artery disease HTN (hypertension), benign LV dysfunction Mixed hyperlipidemia Palpitations Histories Past Medical History: No qualifying data available Family History: Patient was adopted. No family history items have been selected or recorded. Procedure history: Left Heart Catheterization, left ventriculogram. ([id number]) on 05/31/2022 at 66 Years. Artherectomy, Drug Eluting Stent- Coronary Artery. ([id number]) on 05/31/2022 at 66 Years. Intravascular Ultrasound-Coronary Artery. ([id number]) on 05/31/2022 at 66 Years. hernia. rt big toe. Social History Social & Psychosocial History Social History Alcohol Current, 3-5 times per week Other caffiene Comment: 2 cupd coffee daily (07/14/2017 14:10 - Geraldine AUSTIN, Aliya Sorenson) Substance Abuse Denies Substance Abuse Tobacco Electronic Cigarette Psychosocial History No active psychosocial history has been recorded . Physical Examination Temperature 98.6 (10:35) Systolic Blood Pressure 132 (10:45) Diastolic Blood Pressure 72 (10:45) Pulse 64 (10:35) SpO2 No result Respiratory Rate No result VS/Measurements Documented vital signs, Vital Signs (last 24 hrs) Last Charted Heart Rate Apical 64 bpm (FEB 23 10:35) SBP 132 mmHg (FEB 23 10:45) DBP 72 mmHg (FEB 23 10:45) BMI 39.77 (FEB 23 10:35) General: Alert and oriented, No acute distress. Skin: No cyanosis, Not jaundiced. Eye: Normal conjunctiva. HENT: Normocephalic. Neck: Supple, Non-tender, No carotid bruit, No jugular venous distention, No lymphadenopathy, No thyromegaly. Respiratory: Symmetrical chest wall expansion, No chest wall tenderness. Breath sounds: Bilateral, Anterior, Posterior, No wheezing, No crackles present. Cardiovascular: Normal rate, Regular rhythm, No murmur, No gallop, Good pulses equal in all extremities, Normal peripheral perfusion, No edema. Gastrointestinal: Soft, Non-tender, Normal bowel sounds, No organomegaly. Genitourinary: No costovertebral angle tenderness. Lymphatics: No lymphadenopathy neck, axilla, groin. Musculoskeletal: Normal range of motion, Normal strength, No tenderness, No deformity. Integumentary: Warm. Neurologic: Alert, Oriented, No focal deficits. Psychiatric: Cooperative, Normal judgment. Review / Management No qualifying data available Impression and Plan 1. Blood pressure is controlled in my office on metoprolol succinate. 2. Coronary artery disease status post PCI asymptomatic on aspirin. 3. Hyperlipidemia on atorvastatin. 4. Elevated BMI 39.77 diet and exercise discussed. 5. Monitor blood pressure closely and let me know if it remains high. 6. Follow-up up in 4 months or sooner if needed. Electronically signed by Dr. Rainer Berrios. [facility] Ambulatory Clinical Summaryo n 02-24-2024 Ambulatory Clinical Summary ANGELO GRACIA :1955 Registration Date:02/24/2024 Ambulatory Visit Instructions Your Diagnosis BMI 40.0-44.9, adult Coronary artery disease HTN (hypertension), benign Mixed hyperlipidemia Your Care Team Attending Physician - AYANA BERRIOS MD Primary Care Physician - LAI BORGES Procedures Performed Intravascular Ultrasound-Coronary Artery. (05/31/2022) Artherectomy, Drug Eluting Stent- Coronary Artery. (05/31/2022) Left Heart Catheterization, left ventriculogram. (05/31/2022) rt big toe hernia Discharge Vitals Temperature (Temporal Artery) 98.6 DEGF Heart Rate (Apical) 64 Blood Pressure 132/72 Height 70.08 in (178 cm) Weight 277.83 lb (126 kg) BMI 39.77 Systolic Blood Pressure: 132 mmHg (02/24/24 10:45:00) Diastolic Blood Pressure: 72 mmHg (02/24/24 10:45:00) Temperature Temporal (F): 98.6 degF (02/24/24 10:35:00) Apical Heart Rate: 64 bpm (02/24/24 10:35:00) Height/Length Measured: 178 cm (02/24/24 10:35:00) Weight Measured: 126 kg (02/24/24 10:35:00) Body Mass Index Measured: 39.77 kg/m2 (02/24/24 10:35:00) Weight Measured - lbs2: 278 lb (02/24/24 10:35:00) Height/Length Measured - in2: 70 in (02/24/24 10:35:00) Body Mass Index Measured English2: 39.88 kg/m2 (02/24/24 10:35:00) BSA: 2.49 m2 (02/24/24 10:35:00) Ht/Wt Measurement Refused by Patient?2: No (02/24/24 10:35:00) What to do next Scheduled Follow-Up Appointments Appointment Type Reason for visit Day With Date Time Where City&State Established Patient 1 CHECK UP Friday Ayana Berrios MD July 06, 2024 11:[address] [facility] [address] [facility] ZIP:[address] Medications What How Much When Instructions Changed trazodone = Desyrel (traZODone 50 mg oral tablet) 1 Tabs Oral AT BEDTIME Unchanged aspirin (aspirin 81 mg oral delayed release tablet) 1 Tabs Oral DAILY WITH BREAKFAST Unchanged atorvastatin (atorvastatin 40 mg oral tablet) 1 Tabs Oral DAILY Unchanged clopidogrel (clopidogrel 75 mg oral tablet) 1 Tabs Oral DAILY Unchanged hydrOXYzine (hydrOXYzine hydrochloride 10 mg oral tablet) Oral FOUR TIMES A DAY Unchanged LORazepam (LORazepam 0.5 mg oral tablet) 0.5 Tabs Oral ONCE Unchanged metoprolol (metoprolol succinate 25 mg oral capsule, extended release) 1 Capsules Oral DAILY Allergies penicillins Problems Ongoing - Any problem that you are currently receiving treatment for. BMI 40.0-44.9, adult Chest tightness Coronary artery disease HTN (hypertension), benign LV dysfunction Mixed hyperlipidemia Palpitations Common Emergency Awareness Tips IS IT A STROKE? Act FAST and Check for these signs: FACE Does the face look uneven? ARM Does one arm drift down? SPEECH Does their speech sound strange? TIME Call at any sign of stroke Heart Attack Signs Chest discomfort: Most heart attacks involve discomfort in the center of the chest and lasts more than a few minutes, or goes away and comes back. It can feel like uncomfortable pressure, squeezing, fullness or pain. Discomfort in upper body: Symptoms can include pain or discomfort in one or both arms, back, neck, jaw or stomach. Shortness of breath: With or without discomfort. Other signs: Breaking out in a cold sweat, nausea, or lightheaded. Remember, MINUTES DO MATTER. If you experience any of these heart attack warning signs, call to get immediate medical attention! [facility] Ambulatory Vitals Height Cr ght-Texton 02-24-2024 Ambulatory Vitals Height Weight-Text Ambulatory Vitals Height Weight Entered On: 02/24/2024 10:45 EDT Performed On: 02/24/2024 10:45 EDT by AYANA BERRIOS MD Vitals/Ht/Wt Systolic Blood Pressure : 132 mmHg Diastolic Blood Pressure : 72 mmHg AYANA BERRIOS MD - 02/24/2024 10:45 EDT [facility] Comprehensive Intake - Texto n 02-24-2024 Comprehensive Intake - Text Comprehensive Intake Entered On: 02/24/2024 10:37 EDT Performed On: 02/24/2024 10:35 EDT by Apolonia Light MA Summary Chief Complaint : office check up Bladder Control Issues? : No Urine Leakage? : No Presence or absence of urinary incontinence assessed : Yes CPT-II Medication list doc'd in medical record : Yes Influenza immunization administered or previously received : Yes Pneumococcal vaccine administered or previously received : No Apolonia Light MA - 02/24/2024 10:35 EDT Measurements Ht/Wt Measurement Refused by Patient? : No Weight Measured : 126 kg(Converted to: 277 lb 13 oz, 277.782 lb) Height/Length Measured : 178 cm(Converted to: 5 ft 10 in, 70.08 in) Body Mass Index Measured : 39.77 kg/m2 Body Mass Index documented : Yes Weight Measured - lbs : 278 lb(Converted to: 278 lb 0 oz, 126 kg) Height/Length Measured - in : 70 in(Converted to: 5 ft 10 in, 178 cm) Body Mass Index Measured [place] Citizen : 39.88 kg/m2 BSA [place] Citizen : 2.49 m2 Apolonia Light MA 02/24/2024 10:35 EDT Vitals Require BP : No Apical Heart Rate : 64 bpm Temperature Temporal (F) : 98.6 degF(Converted to: 37 degC) Pain Present : No actual or suspected pain Pain : 0 Pain severity quantified : No pain present Apolonia Light MA 02/24/2024 10:35 EDT Infection Screening Travel outside of [facility] within past 21 days? : No Positive COVID test in the last 10 days? : No Exposure to and/or close contact with a person who has a laboratory-confirmed COVID test within the last 48 hours. : No Coronavirus New Symptoms w/o Cause : No Apolonia Light MA 02/24/2024 10:35 EDT Depression Screening Is patient currently : None of the Below Feeling Down, Depressed, Hopeless : Not at all Little Interest - Pleasure in Activities : Not at all Initial Depression Screen Score : 0 Depression Screening Score 0 : No Apolonia Light MA - 02/24/2024 10:35 EDT Falls Risk Assessment Is the patient ambulatory (mobile) : Yes Have you had 2 or more falls in the past year : No Have you had a fall within the past year that has caused an injury : No Patient screen for fall risk : no falls in last year OR 1 fall with no injury in last year Apolonia Light MA 02/24/2024 10:35 EDT [facility] Discharge Educationon 2023 Discharge Education Cardiovascular Learning About Coronary Artery Disease (CAD) What is coronary artery disease? Coronary artery disease is a condition that occurs when plaque builds up in the arteries that bring oxygen-rich blood to your heart. Plaque is a fatty substance made of cholesterol, calcium, and other substances in the blood. This process is called hardening of the arteries, or atherosclerosis. What happens when you have coronary artery disease? ? Plaque may narrow the coronary arteries. Narrowed arteries cause poor blood flow. This can lead to angina symptoms such as chest pain or discomfort. If blood flow is completely blocked, you could have a heart attack. ? You can slow and reduce the risk of future problems by making changes in your lifestyle. These include quitting smoking and eating heart-healthy foods. ? Treatment, along with changes in your lifestyle, can help you live a longer and healthier life. How can you prevent coronary artery disease? ? Do not smoke. It may be the best thing you can do to prevent coronary artery disease. If you need help quitting, talk to your doctor about stop-smoking programs and medicines. These can increase your chances of quitting for good. ? Be active. Try to do moderate activity at least 2? hours a week. Or try to do vigorous activity at least 1? hours a week. You may want to walk or try other activities, such as running, swimming, cycling, or playing tennis or team sports. ? Eat heart-healthy foods. Eat more fruits and vegetables and less food that contains saturated and trans fats. Limit alcohol, sodium, and sweets. ? Stay at a healthy weight. Lose weight if you need to. ? Manage other health problems such as diabetes, high blood pressure, and high cholesterol. How is coronary artery disease treated? ? Your doctor will suggest that you make lifestyle changes. For example, your doctor may ask you to eat healthy foods, quit smoking, lose extra weight, and be more active. ? You will take medicines that help prevent a heart attack. ? Your doctor may suggest a procedure to open narrowed or blocked arteries. This is called angioplasty. Or your doctor may suggest using healthy blood vessels to create detours around narrowed or blocked arteries. This is called bypass surgery. Follow-up care is a mitchell part of your treatment and safety. Be sure to make and go to all appointments, and call your doctor if you are having problems. It's also a good idea to know your test results and keep a list of the medicines you take. Where can you learn more? Go to https://www.[employer].net /patientEd Enter C643 in the search box to learn more about Learning About Coronary Artery Disease (CAD). Current as of: August 06, 2021 Content Version: 13.3 ? [employer]. Care instructions adapted under license by your healthcare professional. If you have questions about a medical condition or this instruction, always ask your healthcare professional. [employer] disclaims any warranty or liability for your use of this information. [facility] Provider Letter - Ambulatory on 02-24-2024 Provider Letter - Ambulatory LAI BORGES, [address] [place] [address] RE: ANGELO GRACIA - 1955 Dear LAI BORGES This document is confidential and intended solely for the use of the individual or entity to which they are addressed. If you are not the named addressee, please disregard and do not disseminate, distribute or copy this information. If you are not the intended recipient you are notified that any disclosure of this information and its contents are strictly prohibited. If you have any questions about this document, please contact the office. Sincerely, AGUSTINA GONZALEZ, THAN [facility] The following document(s) were included in the letter: February 24, 2024 10:45:00 EDT - (02/24/2024) Cardiology Office Note with BMI [facility] Absolute lymphocyte countOrd ered By: Lai Borges on 10-10-2023 Lymphocytes Auto (Unsp spec) [#/Vol] 1.97 10*3/uL 0.83-4.51 [facility] Automated lymphocyte count a s percentage of total leukocytesOrdered By: Lai Borges on 10-10-2023 Lymphocytes/100 WBC Auto (Unsp spec) 28.7 % 19-41 [facility] Basophil percentageOrdered B y: Lai Borges on 10-10-2023 Basophils/100 WBC (Bld) 0.9 % 0-1 [facility] Bilirubin [Mass/Vol] 0.70 mg/dL 0.20-1.00 [facility] Comment on above: For patients on eltr ombopag therapy, use of Dimension [place] TBIL is not recommended. Chloride [Moles/Vol] 104 mmol/L 98-107 [facility] Cholesterol [Mass/Vol] 109 mg/dL <200 [facility] Comment on above: <200 mg/dL Desirable 200-240 mg/dL Borderline >240 mg/dL High Risk Eosinophils/100 WBC (Bld) 1.7 % 0-5 [facility] Glucose [Mass/Vol] 88 mg/dL 74-106 [facility] Hemoglobin (Bld) [Mass/Vol] 15.2 g/dL 13.0-16.5 [facility] Monocytes/100 WBC (Bld) 10.9 % 0-10 [facility] Neutrophils (Bld) [#/Vol] 3.9 10*3/uL 2.0-7.7 [facility] Neutrophils/100 WBC (Bld) 57.5 % 47-70 [facility] Potassium [Moles/Vol] 4.2 mmol/L 3.5-5.1 [facility] Protein [Mass/Vol] 8.0 g/dL 6.4-8.2 [facility] Sodium [Moles/Vol] 138 mmol/L 136-145 [facility] Triglyceride [Mass/Vol] 80 mg/dL <199 [facility] Comment on above: The drugs N-Acetylcy steine and Metamizole may falsely depress this assay.Serum Triglycerides Reference Interval Normal <150 mg/dL Borderline high 150 - 199 mg/dL High 200 - 499 mg/dL Very High > or = 500 mg/dL WBC (Bld) [#/Vol] 6.9 10*3/uL 4.4-11.0 [facility] Determination of erythrocyte mean corpuscular volume (MCV)Ordered By: Lai Borges on 10-10-2023 MCV (RBC) [Entitic vol] 96.6 fL 80-94 [facility] Erythrocyte distribution wid th ratioOrdered By: Lai Borges on 10-10-2023 Erythrocyte distribution width (RBC) [Ratio] 13.1 % 11.6-14.6 [facility] Erythrocyte distribution wid th standard deviationOrdered By: Lai Borges on 10-10-2023 Erythrocyte distribution width (RBC) [Entitic vol] 46.5 fL 35.1-43.9 [facility] Hematocrit Auto (Bld) [Volum e fraction]Ordered By: Lai Borges on 10-10-2023 Hematocrit (Bld) [Volume fraction] 44.9 % 40-54 [facility] Immature granulocytes/100 WB C Auto (Bld)Ordered By: Lai Borges on 10-10-2023 Immature granulocytes/100 WBC (Bld) 0.300 % 0.0-0.9 [facility] Comment on above: IG% - Immature Granu locytes (promyelocytes, myelocytes and metamyelocytes) > 1% indicates that a LEFT SHIFT is Present. Laboratory - Chemistry and C hemistry - challengeOrdered By: Lai Borges on 10-10-2023 Albumin/Globulin [Mass ratio] 1.1 {ratio} 0.9-2.4 [facility] ALP [Catalytic activity/Vol] 42 U/L 45-117 [facility] ALT [Catalytic activity/Vol] 45 U/L 16-61 [facility] Cholesterol in HDL [Mass/Vol] 51 mg/dL >40 [facility] Comment on above: The drugs N-Acetylcy steine and Metamizole may falsely depress this assay. Reference Range HDL <40 mg/dL Low HDL Cholesterol HDL >or= 60 mg/dL High HDL Cholesterol Cholesterol in LDL [Mass/Vol] 42 mg/dL 0-130 [facility] CO2 [Moles/Vol] 26.0 mmol/L 21.0-32.0 [facility] Globulin (S) [Mass/Vol] 3.9 g/dL 2.2-4.2 [facility] Urea nitrogen/Creatinine [Mass ratio] 24.0 mg/mg 10-20 [facility] Laboratory - Hematology and Cell countsOrdered By: Lai Borges on 10-10-2023 MCH (RBC) [Entitic mass] 32.7 pg 27.0-32.0 [facility] MCHC (RBC) [Mass/Vol] 33.9 g/dL 32-36 [facility] Nucleated RBC/100 WBC (Bld) [Ratio] 0 % 0-5 [facility] Platelet mean volume (Bld) [Entitic vol] 10.1 fL 6.2-12.0 [facility] Platelets (Bld) [#/Vol] 235 10*3/uL 150-450 [facility] No Panel InformationOrdered By: Lai Borges on 10-10-2023 Estimated GFR (MDRD) Amer 112 mL/min >60 [facility] Comment on above: GFR Calc Estimated GFR (MDRD) Non-Af Amer 92 mL/min >60 [facility] Comment on above: Non- GFR Calc Prostate Specific Antigen Screen 0.54 ng/mL 0.00-4.00 [facility] Comment on above: This test was perfor med using the TPSA assay method for the[employer] chemistry system. Values obtained with differentassay methods cannot be used interchangably.When changing PSA assays in the course of monitoring apatient, additional sequential testing should be carriedout to confirm baseline values. VLDL Cholesterol 16 mg/dL 5-40 [facility] RBC Auto (Bld) [#/Vol]Ordere d By: Lai Borges on 10-10-2023 RBC (Bld) [#/Vol] 4.65 10*6/uL 4.6-6.2 [facility] Serum or plasma calcium jere urement (mass/volume)Ordered By: Lai Borges on 10-10-2023 Calcium [Mass/Vol] 9.5 mg/dL 8.5-10.1 [facility] Serum or plasma creatinine m easurement (mass/volume)Ordered By: Lai Borges on 10-10-2023 Creatinine [Mass/Vol] 0.88 mg/dL 0.70-1.30 [facility] Comment on above: The validity of the calculated GFR & GFRAA in patients over 70 years has not been determined. Clinical correlation is essential. Serum or plasma urea nitroge n measurement (mass/volume)Ordered By: Lai Borges on 10-10-2023 Urea nitrogen [Mass/Vol] 21 mg/dL 7-18 [facility] Thin prep Papanicolaou smear with manual screeningOrdered By: Lai Borges on 10-10-2023 Thin prep Papanicolaou smear with manual screening 4.1 g/dL 3.2-5.0 [facility] Thin prep Papanicolaou smear with manual screening 44 U/L 15-37 [facility] Thin prep Papanicolaou smear with manual screening 8 5-15 [facility] Culture, urineOrdered By: Do ra Borges on 01-08-2023 Bacteria identified Cx Nom (U) Positive [facility] Laboratory - Hematology and Cell countson 12-06-2022 HbA1c (Bld) [Mass fraction] 5.7 % 4.2-6.3 [facility] CBC W Auto Differential pane l (Bld)on 10-23-2022 Basophils (Bld) [#/Vol] 0.04 10*3/uL Normal <0.11 [facility] Comment on above: Order Comment: Speci men Type: BLOOD SPECIMEN Ordering Facility: External Submitter Address: , , Performed By: #### 5 8921-8 #### [facility] CLIA [id number] [address] [place] [address] [place] Basophils/100 WBC (Bld) 0.6 % Normal [facility] Comment on above: Order Comment: Speci men Type: BLOOD SPECIMEN Ordering Facility: External Submitter Address: , , Performed By: #### 5 7021-8 #### [facility] CLIA [id number] [address] [place] [address] [place] Differential cell count method Nom (Bld) Auto Normal [facility] Comment on above: Order Comment: Speci men Type: BLOOD SPECIMEN Ordering Facility: External Submitter Address: , , Performed By: #### 5 7021-8 #### [facility] CLIA [id number] [address] [place] Eosinophils (Bld) [#/Vol] 0.15 10*3/uL Normal <0.46 [facility] Comment on above: Order Comment: Speci men Type: BLOOD SPECIMEN Ordering Facility: External Submitter Address: , , Performed By: #### 5 7021-8 #### [facility] CLIA [id number] [address] [place] Eosinophils/100 WBC (Bld) 2.2 % Normal [facility] Comment on above: Order Comment: Speci men Type: BLOOD SPECIMEN Ordering Facility: External Submitter Address: , , Performed By: #### 5 7021-8 #### [facility] CLIA [id number] [address] [place] [address] [place] Erythrocyte distribution width (RBC) [Ratio] 13.0 % Normal 11.5-15.0 [facility] Comment on above: Order Comment: Speci men Type: BLOOD SPECIMEN Ordering Facility: External Submitter Address: , , Performed By: #### 5 7021-8 #### [facility] CLIA [id number] [address] [place] [address] [place] Hematocrit (Bld) [Volume fraction] 45.0 % Normal 39.0-51.0 [facility] Comment on above: Order Comment: Speci men Type: BLOOD SPECIMEN Ordering Facility: External Submitter Address: , , Performed By: #### 5 7021-8 #### [facility] CLIA [id number] [address] [place] [address] [facility] Hemoglobin (Bld) [Mass/Vol] 14.9 g/dL Normal 13.0-17.0 [facility] Comment on above: Order Comment: Speci men Type: BLOOD SPECIMEN Ordering Facility: External Submitter Address: , , Performed By: #### 5 7021-8 #### [facility] CLIA [id number] [address] [place], [place] [address] [place] [address] [place] Immature granulocytes (Bld) [#/Vol] 10*3/uL Normal <0.10 [facility] Comment on above: Order Comment: Speci men Type: BLOOD SPECIMEN Ordering Facility: External Submitter Address: , , Performed By: #### 5 7021-8 #### [facility] CLIA [id number] [address] [place], [place] [address] [place] [address] Immature granulocytes/100 WBC (Bld) 0.1 % Normal [facility] Comment on above: Order Comment: Speci men Type: BLOOD SPECIMEN Ordering Facility: External Submitter Address: , , Performed By: #### 5 7021-8 #### [facility] CLIA [id number] [address] [place], [place] [id number] [place] [address] [place] Lymphocytes (Bld) [#/Vol] 1.92 10*3/uL Normal 1.00-4.00 [facility] Comment on above: Order Comment: Speci men Type: BLOOD SPECIMEN Ordering Facility: External Submitter Address: , , Performed By: #### 5 7021-8 #### [facility] CLIA [id number] [address] [place], [place] [address] [place] [address] Lymphocytes/100 WBC (Bld) 28.7 % Normal [facility] Comment on above: Order Comment: Speci men Type: BLOOD SPECIMEN Ordering Facility: External Submitter Address: , , Performed By: #### 5 7021-8 #### [facility] CLIA [id number] [address] [place], [place] [address] [place] [address] MCH (RBC) [Entitic mass] 31.8 pg Normal 26.0-34.0 [facility] Comment on above: Order Comment: Speci men Type: BLOOD SPECIMEN Ordering Facility: External Submitter Address: , , Performed By: #### 5 7021-8 #### [facility] CLIA [id number] [address] [place] [id number] [place] [address] MCHC (RBC) [Mass/Vol] 33.1 g/dL Normal 30.5-36.0 [facility] Comment on above: Order Comment: Speci men Type: BLOOD SPECIMEN Ordering Facility: External Submitter Address: , , Performed By: #### 5 7021-8 #### [facility] CLIA [id number] [address] [place] [address] OF [facility] MCV (RBC) [Entitic vol] 95.9 fL Normal 80.0-100.0 [facility] Comment on above: Order Comment: Speci men Type: BLOOD SPECIMEN Ordering Facility: External Submitter Address: , , Performed By: #### 5 7021-8 #### [facility] CLIA [id number] [address] [place] [address] Monocytes (Bld) [#/Vol] 0.52 10*3/uL Normal <0.87 [facility] Comment on above: Order Comment: Speci men Type: BLOOD SPECIMEN Ordering Facility: External Submitter Address: , , Performed By: #### 5 7021-8 #### [facility] CLIA [id number] [address] [place] [address] Monocytes/100 WBC (Bld) 7.8 % Normal [facility] Comment on above: Order Comment: Speci men Type: BLOOD SPECIMEN Ordering Facility: External Submitter Address: , , Performed By: #### 5 7021-8 #### [facility] CLIA [id number] [address] [place] [address] [place] Neutrophils (Bld) [#/Vol] 4.04 10*3/uL Normal 1.45-7.50 [facility] Comment on above: Order Comment: Matt vo Type: BLOOD SPECIMEN Ordering Facility: External Submitter Address: , , Performed By: #### 5 7021-8 #### [facility] CLIA [id number] [address] [place] [address] [place] Neutrophils/100 WBC (Bld) 60.6 % Normal [facility] Comment on above: Order Comment: Speci men Type: BLOOD SPECIMEN Ordering Facility: External Submitter Address: , , Performed By: #### 5 7021-8 #### [facility] CLIA [id number] [address] [place] [address] [place] Nucleated RBC (Bld) [#/Vol] Normal [facility] Comment on above: Order Comment: Matt tavo Type: BLOOD SPECIMEN Ordering Facility: External Submitter Address: , , Performed By: #### 5 7021-8 #### [facility] CLIA [id number] [address] [place] [address] [place] Nucleated RBC/100 WBC (Bld) [Ratio] Normal [facility] Comment on above: Order Comment: Matt tavo Type: BLOOD SPECIMEN Ordering Facility: External Submitter Address: , , Performed By: #### 5 7021-8 #### [facility] CLIA [id number] [address] [place] [address] [place] Platelet mean volume (Bld) [Entitic vol] 9.4 fL Normal 9.0-12.7 [facility] Comment on above: Order Comment: Matt tavo Type: BLOOD SPECIMEN Ordering Facility: External Submitter Address: , , Performed By: #### 5 7021-8 #### [facility] CLIA [id number] [address] [place] [address] [place] Platelets (Bld) [#/Vol] 216 10*3/uL Normal 150-400 [facility] Comment on above: Order Comment: Speci men Type: BLOOD SPECIMEN Ordering Facility: External Submitter Address: , , Performed By: #### 5 7021-8 #### [facility] CLIA [id number] [address] [place] [address] [facility] [place] RBC (Bld) [#/Vol] 4.69 10*6/uL Normal 4.20-6.00 [facility] Comment on above: Order Comment: Speci [facility] Type: BLOOD SPECIMEN Ordering Facility: External Submitter Address: , , Performed By: #### 5 7021-8 #### [facility] CLIA [id number] [address] [place] [address] [facility] [place] WBC (Bld) [#/Vol] 6.68 10*3/uL Normal 3.70-11.00 [facility] Comment on above: Order Comment: Matt [facility] Type: BLOOD SPECIMEN Ordering Facility: External Submitter Address: , , Performed By: #### 5 7021-8 #### [facility] CLIA [id number] [address] [place] [address] [place] Nuclear Ab IA Ql (S)on 10-23 JORGE BY EIA, QUAL Negative Normal Negative [facility] Comment on above: Order Comment: Kvngesthela [facility] Type: BLOOD SPECIMEN Ordering Facility: External Submitter Address: , , Result Comment: The qualitative antinuclear antibody screen test performed using enzyme immunoassay including the following antigens: dsDNA, histones, SS-A, SS-B, Sm, Sm/MANAGER ER, Scl-70, Oumou-1, and centromeric antigens. Performed By: #### 4 7383-5 #### [facility] CLIA [id number] [address] [place] [address] [place] Rheumatoid fact SerPl-aCncon 10-23-2022 Rheumatoid factor Qn [IU]/mL Normal <16 [facility] Comment on above: Order Comment: Kvngesthela vo Type: BLOOD SPECIMEN Ordering Facility: External Submitter Address: , , Performed By: #### 1 1572-5 #### [facility] CLIA [id number] [address] [place] [id number] [facility] [place] TSH SerPl-aCncon 10-23-2022 TSH Qn 1.210 m[IU]/L Normal 0.270-4.20 0 [facility] Comment on above: Order Comment: Matt vo Type: BLOOD SPECIMEN Ordering Facility: External Submitter Address: , , Performed By: #### 3 016-3, 3084-1 #### [facility] CLIA [id number] [address] [place], [place] [address] [facility] Urate SerPl-mCncon Urate [Mass/Vol] 4.5 mg/dL Normal 4.0-8.1 [facility] Comment on above: Order Comment: Matt tavo Type: BLOOD SPECIMEN Ordering Facility: External Submitter Address: , , Performed By: #### 3 016-3, 3084-1 #### [facility] CLIA [id number] [address] [place], [place] [id number] [facility] XR DIGIT 3V FRONTAL/LAT/OBL LTon 10-23-2022 XR DIGIT 3V FRONTAL/LAT/OBL LT * * *Final Report* * * DATE OF EXAM: Oct 23 2022 1:31PM LDX 5318 - XR DIGIT 3V FRONTAL/LAT/OBL LT / PROCEDURE REASON: left thumb pain * * * * Physician Interpretation * * * * XR DIGIT 3V FRONTAL/LAT/OBL LT HISTORY: 66 years old Clinical information: left thumb pain Painful left thumb, most pain metacarpophalengeal joint pain, no trauma, weakness weakness with holding anything in his hand. TECHNIQUE: Images: XR DIGIT 3V FRONTAL/LAT/OBL LT Comparison: None. 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 No osseous erosive change or pathologic calcifications No fractures or dislocations are seen. Ruby On Rails Engineer: JOSE Transcribe Date/Time: Oct 28 2022 11:55A Dictated by : MORGAN CORRALES MD This examination was interpreted and the report reviewed and electronically signed by: MORGAN CORRALES MD on Oct 28 2022 11:56AM EST [id number] Normal [facility] XR CHEST 2V FRONTAL/LATon XR CHEST 2V FRONTAL/LAT * * *Final Report* * * DATE OF EXAM: May 07 2022 1:09PM LDX 5291 - XR CHEST 2V FRONTAL/LAT / PROCEDURE REASON: COUGH * * * * Physician Interpretation * * * * EXAMINATION: CHEST RADIOGRAPH (2 VIEW FRONTAL and LATERAL) CLINICAL HISTORY: Cough MQ: [id number]_6 EXAM DATE/TIME: 05/07/2022 1:09 PM COMPARISON: No relevant prior studies available. RESULT: Lines, tubes, and devices: None. Lungs and pleura: There is bilateral mid and lower lung zone pleural thickening which may be secondary to pleural fat deposition. The lungs are otherwise clear of active infiltrates. Cardiomediastinal silhouette: Normal cardiomediastinal silhouette. Bones and soft tissues: Chronic healed fracture deformity at the mid left clavicle is noted. IMPRESSION: No acute radiographic abnormality. Ruby On Rails Engineer: PSCB Transcribe Date/Time: May 08 2022 10:04A Dictated by : VINNY BAHENA MD This examination was interpreted and the report reviewed and electronically signed by: VINNY BAHENA MD on May 08 2022 10:06AM EST [id number] Normal [facility] Absolute lymphocyte counton 05-06-2022 Lymphocytes Auto (Unsp spec) [#/Vol] 2.16 10*3/uL 0.83-4.51 [facility] Work Phone: Basophil percentageon 2021 Basophils/100 WBC (Bld) 1.6 % 0-1 [facility] Work Phone: Bilirubin [Mass/Vol] 0.50 mg/dL 0.20-1.00 [facility] Work Phone: Comment on above: For patients on eltr ombopag therapy, use of Dimension [place] TBIL is not recommended. Chloride [Moles/Vol] 105 mmol/L 98-107 [facility] Work Phone: Cholesterol [Mass/Vol] 211 mg/dL <200 Wo [facility] Work Phone: Comment on above: <200 mg/dL Desirable 200-240 mg/dL Borderline >240 mg/dL High Risk Eosinophils/100 WBC (Bld) 1.1 % 0-5 [facility] Work Phone: [phone] Glucose [Mass/Vol] 92 mg/dL 74-106 [facility] Work Phone: [phone] Neutrophils (Bld) [#/Vol] 3.3 10*3/uL 2.0-7.7 [facility] Work Phone: [phone] Neutrophils/100 WBC (Bld) 52.1 % 47-70 [facility] Work Phone: [phone] Potassium [Moles/Vol] 3.8 mmol/L 3.5-5.1 [facility] Work Phone: [phone] Protein [Mass/Vol] 7.6 g/dL 6.4-8.2 [facility] Work Phone: [phone] Sodium [Moles/Vol] 138 mmol/L 136-145 [facility] Work Phone: [phone] Triglyceride [Mass/Vol] 133 mg/dL <199 [facility] Work Phone: [phone] Comment on above: The drugs N-Acetylcy steine and Metamizole may falsely depress this assay.Serum Triglycerides Reference Interval Normal <150 mg/dL Borderline high 150 - 199 mg/dL High 200 - 499 mg/dL Very High > or = 500 mg/dL WBC (Bld) [#/Vol] 6.3 10*3/uL 4.4-11.0 [facility] Work Phone: Blood erythrocytes count (nu mber/volume)on 05-06-2022 RBC (Bld) [#/Vol] 4.76 10*6/uL 4.6-6.2 [facility] Work Phone: [phone] Blood hemoglobin measurement (mass/volume)on 05-06-2022 Hemoglobin (Bld) [Mass/Vol] 15.6 g/dL 13.0-16.5 [facility] Work Phone: [phone] Blood lymphocytes/100 leukoc yteson 05-06-2022 Lymphocytes/100 WBC (Bld) 34.4 % 19-41 [facility] Work Phone: Blood manual differential co mment interpretation (narrative result)on 05-06-2022 Manual differential comment Gurpreet (Bld) [Interp] SCANNED [facility] Work Phone: Blood monocytes/100 leukocyt eson 05-06-2022 Monocytes/100 WBC (Bld) 10.5 % 0-10 [facility] Work Phone: Blood platelet mean volumeon 05-06-2022 Platelet mean volume (Bld) [Entitic vol] 10.5 fL 6.2-12.0 [facility] Work Phone: Determination of erythrocyte mean corpuscular volume (MCV)on 05-06-2022 MCV (RBC) [Entitic vol] 95.2 fL 80-94 [facility] Work Phone: Hematocrit Auto (Bld) [Volum e fraction]on 05-06-2022 Hematocrit (Bld) [Volume fraction] 45.3 % 40-54 [facility] Work Phone: Laboratory - Chemistry and C hemistry - challengeon 05-06-2022 ALP [Catalytic activity/Vol] 46 U/L 45-117 [facility] Work Phone: ALT [Catalytic activity/Vol] 37 U/L 16-61 [facility] Work Phone: CO2 [Moles/Vol] 26.0 mmol/L 21.0-32.0 [facility] Work Phone: Globulin (S) [Mass/Vol] 3.8 g/dL 2.2-4.2 [facility] Work Phone: Urea nitrogen/Creatinine [Mass ratio] 22.5 mg/mg 10-20 [facility] Work Phone: Laboratory - Hematology and Cell countson 05-06-2022 Erythrocyte distribution width (RBC) [Entitic vol] 45.5 fL 35.1-43.9 [facility] Work Phone: Erythrocyte distribution width (RBC) [Ratio] 13.0 % 11.6-14.6 [facility] Work Phone: [phone] Immature granulocytes/100 WBC (Bld) 0.300 % 0.0-0.9 [facility] Work Phone: Comment on above: IG% - Immature Granu locytes (promyelocytes, myelocytes and metamyelocytes) > 1% indicates that a LEFT SHIFT is Present. MCH (RBC) [Entitic mass] 32.8 pg 27.0-32.0 [facility] Work Phone: Nucleated RBC/100 WBC (Bld) [Ratio] 0 % 0-5 [facility] Work Phone: MCHC Auto (RBC) [Mass/Vol]on 05-06-2022 MCHC (RBC) [Mass/Vol] 34.4 g/dL 32-36 [facility] Work Phone: No Panel Informationon 05-06 Estimated GFR (MDRD) Amer 133 mL/min >60 [facility] Work Phone: Comment on above: GFR Calc Estimated GFR (MDRD) Non-Af Amer 110 mL/min >60 [facility] Work Phone: Comment on above: Non- GFR Calc Prostate Specific Antigen Screen 0.62 ng/mL 0.00-4.00 [facility] Work Phone: Comment on above: This test was perfor med using the TPSA assay method [facility]. Values obtained with differentassay methods cannot be used interchangably.When changing PSA assays in the course of monitoring apatient, additional sequential testing should be carriedout to confirm baseline values. Platelets bldon 05-06-2022 Platelets (Bld) [#/Vol] 218 10*3/uL 150-450 [facility] Work Phone: Serum or plasma albumin jere urement (mass/volume)on 05-06-2022 Albumin [Mass/Vol] 3.8 g/dL 3.2-5.0 [facility] Work Phone: Serum or plasma albumin/glob ulin mass ratioon 05-06-2022 Albumin/Globulin [Mass ratio] 1.0 {ratio} 0.9-2.4 [facility] Work Phone: Serum or plasma calcium jere urement (mass/volume)on 05-06-2022 Calcium [Mass/Vol] 9.0 mg/dL 8.5-10.1 [facility] Work Phone: [phone] Serum or plasma cholesterol in HDL measurement (mass/volume)on 05-06-2022 Cholesterol in HDL [Mass/Vol] 49 mg/dL >40 [facility] Work Phone: Comment on above: The drugs N-Acetylcy steine and Metamizole may falsely depress this assay. Reference Range HDL <40 mg/dL Low HDL Cholesterol HDL >or= 60 mg/dL High HDL Cholesterol Serum or plasma cholesterol in VLDL measurement (mass/volume)on 05-06-2022 Cholesterol in VLDL [Mass/Vol] 27 mg/dL 5-40 [facility] Work Phone: [phone] Serum or plasma creatinine m easurement (mass/volume)on 05-06-2022 Creatinine [Mass/Vol] 0.75 mg/dL 0.70-1.30 [facility] Work Phone: Comment on above: The validity of the calculated GFR & GFRAA in patients over 70 years has not been determined. Clinical correlation is essential. Serum or plasma low density lipoprotein (LDL) cholesterol measurement (mass/volume)on 05-06-2022 Cholesterol in LDL [Mass/Vol] 135 mg/dL 0-130 [facility] Work Phone: Serum or plasma urea nitroge n measurement (mass/volume)on 05-06-2022 Urea nitrogen [Mass/Vol] 17 mg/dL 7-18 [facility] Work Phone: [phone] Thin prep Papanicolaou smear with manual screeningon 05-06-2022 Thin prep Papanicolaou smear with manual screening 22 U/L 15-37 [facility] Work Phone: [phone] Thin prep Papanicolaou smear with manual screening 7 -15 [facility] Work Phone: Office Visit (Urgent Care)on 12-11-2020 Follow-up visit Diagnoses/Problems Assessed Hematuria (599.70) (R31.9) Kidney stone on left side (592.0) (N20.0) Patient Discussion/Summary Please see your primary care physician in 5 days. as needed Aleve 1 to 2 tablets twice daily with food as needed. Drink plenty of fluids. Seek follow-up medical care if symptoms worsen or do not resolve. Provider Impressions Patient declined a urology referral. Chief Complaint Chief Complaints Hematuria Leg Pain History of Present Illness 64-year-old male with a 1 month history of intermittent left-sided groin pain. Over the last 3 to 4 days he has had blood in his urine. He had 3 or 4 episodes but it has now resolved. No true dysuria. No fever. He has a previous history of 2 or 3 kidney stones. Review of systems is otherwise negative for constitutional, ear nose and throat, neck, heart, lungs, and abdomen. Review of Systems Constitutional: as noted in HPI. Active Problems Problems Hematuria (599.70) (R31.9) Knee pain (719.46) (M25.569) Left knee sprain (844.9) (S83.92XA) Surgical History Problems History of Meniscus repair Social History Problems Never smoker Allergies Medication Penicillins Recorded By: Cait Hall; 04/05/2020 2:47:51 PM Vitals Vital Signs Recorded: [id number] 12:51PM Tzggebnofdc66.1 F Heart Rate71 Goimtygsmyj14 Tvgqjdpo723 Xpsondiht794 Height5 ft 10.5 in Zawgcn676 lb 6.02 oz BMI Vegrdydhec81.51 BSA Calculated2.44 Tobacco Useb) No Fall Screeninga) No falls within the last year O2 Vdwopsaynk13 Pain Scale3/4 - groin Physical Exam Patient appears in no apparent distress and is well-hydrated. Vital signs noted. Examination of the heart and lungs is normal. Examination of the back reveals no CVA tenderness. Abdominal examination is normal with no suprapubic tenderness. Examination of the genitalia reveals a normal appearance. No testicular abnormalities or hernia. Results/Data Urinalysis is positive for blood. Signatures Electronically signed by : Danielle Fenton MD; Dec 11 2020 1:41PM EST (Author) [employer] Clinical Summary: HMSPatient IDon 05-22-2020 [facility] Work Phone: Office Visit: Postop - 1st v isit, Rm: 3on 05-22-2020 NEGATED: Highlighted rowxray history of the left knee on 04/05/2020 at [facility] Work Phone: KNEE, 3 VIEWSon 04-05-2020 KNEE, 3 VIEWS Patient Name: ANGELO GRACIA STUDY: Left KNEE; 3 VIEWS; 04/05/2020 3:20 pm INDICATION: pain in left knee no known injury with swelling. COMPARISON: None. ACCESSION NUMBER(S): [id number] ORDERING CLINICIAN: DANIELLE FENTON FINDINGS: There is no evidence for acute fracture or dislocation. Spurring of the patella and tibial spines is noted. No periosteal reaction is seen. There is no evidence for suprapatellar effusion. IMPRESSION: Spurring of patella and tibial spines. Electronically signed by: JHONATHAN SMITH MD Normal [facility] Basic Panelon 04-25-2018 Anion gap 3 molar conc 10 mmol/L Normal 8-20 [facility] Comment on above: Performed By: #### L P8 ####[place] [address] Calcium mass conc 9.1 mg/dL Normal 8.5-10.1 [facility] Comment on above: Performed By: #### L P8 ####[place] [address] Chloride molar conc 108 mmol/L High 98-107 [facility] Comment on above: Performed By: #### L P8 ####[place] [address] CO2 molar conc 22 mmol/L Normal 21-32 [facility] Comment on above: Performed By: #### L P8 ####[place] [address] Creatinine mass conc 0.84 mg/dL Normal 0.67-1.17 [facility] Comment on above: Performed By: #### L P8 ####[facility] [place], [place] [address] Glucose mass conc 122 mg/dL High 70-99 [facility] Comment on above: Performed By: #### L P8 ####[facility] [place], [place] [address] Potassium molar conc 3.7 mmol/L Normal 3.5-5.1 [facility] Comment on above: Performed By: #### L P8 ####[facility] [place], [place] [address] Sodium molar conc 137 mmol/L Normal 136-145 [facility] Comment on above: Performed By: #### L P8 ####[facility] [place], [place] [address] Urea nitrogen mass conc (Bld) 28 mg/dL High 7-25 [facility] Comment on above: Performed By: #### L P8 ####[facility] [place], [place] [address] Urea nitrogen/Creatinine mass ratio 33 mg/mg High 10-20 [facility] Comment on above: Performed By: #### L P8 ####[facility] [place], [place] [address] CT ABDOMEN AND PELVIS W/O CO NTRASTon 04-25-2018 CT ABDOMEN AND PELVIS W/O CONTRAST Performed at [facility] APPROVED BY: Morgan Corrales MD EXAMINATION: CT ABDOMEN AND PELVIS WITHOUT IV CONTRAST CLINICAL HISTORY: Left flank pain, history of stones TECHNIQUE: Non-IV contrast imaging of the abdomen and pelvis was performed using standard technique, scanning from just above the dome of the diaphragm to the symphysis pubis. Unenhanced imaging is limited for the evaluation of some intra-abdominal and pelvic pathology.MQ: [id number] Contrast:IV: None : ml of CT Radiation dose: Integrated Dose-length product (DLP) for this visit = 1101 mGy*cm.CT Dose Reduction Employed: 1-automated exposure control was used COMPARISON: 07/02/2013 CT RESULT: Abdomen / Pelvis: Liver: Unremarkable. No evidence of hepatomegaly Biliary: Gallbladder appears unremarkable. No bile duct dilatation Spleen: No splenomegaly. Pancreas: No CT evidence of pancreatitis. Evaluate for intrinsic lesion is nondiagnostic without intravenous contrast Adrenals: No mass. Kidneys: 4 mm obstructing stone at the level the ureterovesical junction on axial image 161 and coronal image 104. Moderate degree of left side hydronephrosis with perinephric and periureteral edema. Left side partly duplicated collecting system GI Tract: No bowel dilation. No CT evidence of appendicitis. Appendix is well seen on axial image 120. .Mild degree of colonic diverticulosis without diverticulitis Lymph Nodes: No lymphadenopathy. Mesentery/peritoneum: No ascites. Retroperitoneum: No mass. Vasculature: Arterial calcifications without aneurysmal dilatation Pelvis: No mass or ascites. Male Bones/Soft Tissues: No acute abnormality. Lower thorax: Unremarkable. Mild degree of cardiomegaly. IMPRESSION: 1. 4 mm obstructing stone at the level the ureterovesical junction on axial image 161 and coronal image 104. Moderate degree of left side hydronephrosis with perinephric and periureteral edema. Left side partly duplicated collecting system 2.Mild degree of colonic diverticulosis without diverticulitis Normal [facility] Hemogram/Diffon 04-25-2018 Abs. Baso 0.05 thou/cmm Normal 0.00-0.08 [facility] Comment on above: Performed By: #### L CBCD ####[place] [address] Abs. Cambria 0.55 thou/cmm Normal 0.20-1.00 [facility] Comment on above: Performed By: #### L CBCD ####[place] [address] Abs. Neut (ANC) 4.33 thou/cmm Normal 3.00-5.67 [facility] Comment on above: Performed By: #### L CBCD ####[place] [address] Basophils/100 WBC Auto (Bld) 0.7 % Normal [facility] Comment on above: Performed By: #### L CBCD ####[place] [address] Eosinophils Auto #/vol (Bld) 0.10 thou/cmm Normal 0.00-0.41 [facility] Comment on above: Performed By: #### L CBCD ####[address] [address] Eosinophils/100 WBC Auto (Bld) 1.5 % Normal [facility] Comment on above: Performed By: #### L CBCD ####[address] [address] Erythrocyte distribution width Auto Ratio (RBC) 13.2 % Normal 11.5-15.9 [facility] Comment on above: Performed By: #### L CBCD ####[address] [address] Hematocrit Auto Volume Fraction (Bld) 45.0 % Normal 42.0-52.0 [facility] Comment on above: Performed By: #### L CBCD ####[address] [address] Hemoglobin mass conc (Bld) 15.3 g/dL Normal 14.0-18.0 [facility] Comment on above: Performed By: #### L CBCD ####[address] [address] Lymphocytes Auto #/vol (Bld) 1.77 thou/cmm Normal 1.50-3.65 [facility] Comment on above: Performed By: #### L CBCD ####[address] [address] Lymphocytes/100 WBC Auto (Bld) 26.0 % Normal [facility] Comment on above: Performed By: #### L CBCD ####[address] [address] MCH Auto Entitic mass (RBC) 32.0 pg High 27.0-31.0 [facility] Comment on above: Performed By: #### L CBCD ####[address] [address] MCHC Auto mass conc (RBC) 34.0 % Normal 32.0-36.0 [facility] Comment on above: Performed By: #### L CBCD ####[address] [address] MCV Auto Entitic volume (RBC) 94.1 fL High 80.0-94.0 [facility] Comment on above: Performed By: #### L CBCD ####[address] [address] Monocytes/100 WBC Auto (Bld) 8.1 % Normal [facility] Comment on above: Performed By: #### L CBCD ####[address] [address] Platelet mean volume Auto Entitic volume (Bld) 9.6 fL Normal 7.1-10.5 [facility] Comment on above: Performed By: #### L CBCD ####[place] [address] Platelets Auto #/vol (Bld) 248 thou/cmm Normal 150-400 [facility] Comment on above: Performed By: #### L CBCD ####[address] [address] RBC Auto #/vol (Bld) 4.78 mil/cmm Normal 4.60-6.20 [facility] Comment on above: Performed By: #### L CBCD ####[place] [address] Seg Neutrophil 63.7 % Normal [facility] Comment on above: Performed By: #### L CBCD ####[place] [address] WBC Auto #/vol (Bld) 6.8 thou/cmm Normal 4.8-10.8 [facility] Comment on above: Performed By: #### L CBCD ####[place] [id number] MDRD eGFRon 04-25-2018 GFR/1.73 sq M predicted among non-blacks MDRD vol rate/area (S/P/Bld) mL/min/{1.73_m2} Normal >60mL/min/ 1.73m2 [facility] Comment on above: Result Comment: If t he patient is , multiply the result by 1.210. Performed By: #### L GFR ####[address] [address] Protimeon 04-25-2018 INR Coag RelTime (PPP) 1.00 {INR} Normal 0.90-1.30 [facility] Comment on above: Result Comment: Note : Reference Range ChangeVitamin K Antagonist (VKA) Therapeutic Range: INR 2 to 3 (Target INRof 2.5)Note: For patients treated with VKA drugs, such as warfarin, theAmerican College of Chest Physicians 2012 Guideline recommends a therapeuticINR range of 2 to 3 (target INR of 2.5). Thisrecommendation includes high-risk patients with antiphospholipidsyndrome with previous arterial or venous thromboembolism,current-generation mechanical or bioprosthetic aortic heartvalve replacement.VKA Therapeutic Range for some Mechanical Valve Replacement:INR 2.5 to 3.5 (Target INR of 3)Note: Patients with mechanical aortic valve replacement andadditional risk factors for thromboembolic events (atrialfibrillation, previous thromboembolism, LV dysfunction,hypercoagulable conditions) or an older generation mechanicalAVR (i.e., ball in-Cage) or any mechanical MVR should havea INR therapeutic range of 2.5 to 3.5 target INR of 3).Pepito GH, et al. Chest 2012; 141:7S-47SNishdanay RA, et al. JAC 2017; 70: 252-289 Performed By: #### L PT ####[place] [phone] Prothrombin time (PT) Coag time (PPP) 10.2 s Normal 9.7-13.0 [facility] Comment on above: Performed By: #### L PT ####[address] [address] Urinalysis Routineon 018 Appearance Nom (U) 1+ (HAZY) Normal [facility] Comment on above: Performed By: #### L URIN ####[address] [address] Bilirubin Urine Negative Normal Negative [facility] Comment on above: Performed By: #### L URIN ####[place] [address] Color Nom (U) YELLOW Normal [facility] Comment on above: Performed By: #### L URIN ####[place] [address] Ep Cells Urine 0-2 Normal 0-5 [facility] Comment on above: Performed By: #### L URIN ####[place] [address] Glucose Ql (U) Negative Normal Negative [facility] Comment on above: Performed By: #### L URIN ####[place] [address] Hemoglobin,Urine 2+ Abnormal Negative [facility] Comment on above: Performed By: #### L URIN ####[place] [address] Ketone Urine Negative Normal Negative [facility] Comment on above: Performed By: #### L URIN ####[place] [address] Leukocytes Esterase Negative Normal Negative [facility] Comment on above: Performed By: #### L URIN ####[place] [address] Mucus Threads FEW Normal None [facility] Comment on above: Performed By: #### L URIN ####[place] [address] Nitrites Urine Negative Normal Negative [facility] Comment on above: Performed By: #### L URIN ####[place] [address] pH Test strip (U) 5.0 [pH] Normal 5.0-8.0 [facility] Comment on above: Performed By: #### L URIN ####[place] [address] Protein Urine TRACE Abnormal Negative [facility] Comment on above: Performed By: #### L URIN ####[place] [address] RBC LM.HPF #/area (Urine sed) /[HPF] Abnormal 0-3 [facility] Comment on above: Performed By: #### L URIN ####[place] [address] Specific [place], Ur >=1.030 Normal 1.005-1 .03 0 [facility] Comment on above: Performed By: #### L URIN ####[place] [address] Urobilinogen,Ur 0.2 EU/dL Normal 0.0-1.0 [facility] Comment on above: Performed By: #### L URIN ####[place] [address] WBC LM.HPF #/area (Urine sed) 1-3 Normal 0-5 [facility] Comment on above: Performed By: #### L URIN ####[place] [address] Basic Panelon 04-20-2018 Anion gap 3 molar conc 7 mmol/L Low 8-20 [facility] Comment on above: Performed By: #### L P8 ####[place] [address] Calcium mass conc 8.8 mg/dL Normal 8.5-10.1 [facility] Comment on above: Performed By: #### L P8 ####[place] [address] Chloride molar conc 105 mmol/L Normal 98-107 [facility] Comment on above: Performed By: #### L P8 ####[place] [address] CO2 molar conc 29 mmol/L Normal 21-32 [facility] Comment on above: Performed By: #### L P8 ####[place] [address] Creatinine mass conc 0.83 mg/dL Normal 0.67-1.17 [facility] Comment on above: Performed By: #### L P8 ####[place] [address] Glucose mass conc 114 mg/dL High 70-99 [facility] Comment on above: Performed By: #### L P8 ####[place] [address] Potassium molar conc 3.8 mmol/L Normal 3.5-5.1 [facility] Comment on above: Performed By: #### L P8 ####[place] [address] Sodium molar conc 137 mmol/L Normal 136-145 [facility] Comment on above: Performed By: #### L P8 ####[place] [address] Urea nitrogen mass conc (Bld) 25 mg/dL Normal 7-25 [facility] Comment on above: Performed By: #### L P8 ####[place] [address] Urea nitrogen/Creatinine mass ratio 30 mg/mg High 10-20 [facility] Comment on above: Performed By: #### L P8 ####[place] [address] Hemogram/Diffon 04-20-2018 Abs. Baso 0.04 thou/cmm Normal 0.00-0.08 [facility] Comment on above: Performed By: #### L CBCD ####[place] [address] Abs. Cambria 0.61 thou/cmm Normal 0.20-1.00 [facility] Comment on above: Performed By: #### L CBCD ####[place] [address] Abs. Neut (ANC) 4.30 thou/cmm Normal 3.00-5.67 [facility] Comment on above: Performed By: #### L CBCD ####[place] [address] Basophils/100 WBC Auto (Bld) 0.6 % Normal [facility] Comment on above: Performed By: #### L CBCD ####[place] [address] Eosinophils Auto #/vol (Bld) 0.08 thou/cmm Normal 0.00-0.41 [facility] Comment on above: Performed By: #### L CBCD ####[address] [address] Eosinophils/100 WBC Auto (Bld) 1.2 % Normal [facility] Comment on above: Performed By: #### L CBCD ####[address] [address] Erythrocyte distribution width Auto Ratio (RBC) 13.4 % Normal 11.5-15.9 [facility] Comment on above: Performed By: #### L CBCD ####[address] [address] Hematocrit Auto Volume Fraction (Bld) 45.5 % Normal 42.0-52.0 [facility] Comment on above: Performed By: #### L CBCD ####[address] [address] Hemoglobin mass conc (Bld) 15.3 g/dL Normal 14.0-18.0 [facility] Comment on above: Performed By: #### L CBCD ####[address] [address] Lymphocytes Auto #/vol (Bld) 1.47 thou/cmm Low 1.50-3.65 [facility] Comment on above: Performed By: #### L CBCD ####[address] [address] Lymphocytes/100 WBC Auto (Bld) 22.6 % Normal [facility] Comment on above: Performed By: #### L CBCD ####[address] [address] MCH Auto Entitic mass (RBC) 32.1 pg High 27.0-31.0 [facility] Comment on above: Performed By: #### L CBCD ####[address] [address] MCHC Auto mass conc (RBC) 33.6 % Normal 32.0-36.0 [facility] Comment on above: Performed By: #### L CBCD ####[address] [address] MCV Auto Entitic volume (RBC) 95.6 fL High 80.0-94.0 [facility] Comment on above: Performed By: #### L CBCD ####[address] [address] Monocytes/100 WBC Auto (Bld) 9.4 % Normal [facility] Comment on above: Performed By: #### L CBCD ####[address] [address] Platelet mean volume Auto Entitic volume (Bld) 9.5 fL Normal 7.1-10.5 [facility] Comment on above: Performed By: #### L CBCD ####[address] [address] Platelets Auto #/vol (Bld) 262 thou/cmm Normal 150-400 [facility] Comment on above: Performed By: #### L CBCD ####[address] [address] RBC Auto #/vol (Bld) 4.76 mil/cmm Normal 4.60-6.20 [facility] Comment on above: Performed By: #### L CBCD ####[address] [address] Seg Neutrophil 66.2 % Normal [facility] Comment on above: Performed By: #### L CBCD ####[address] [address] WBC Auto #/vol (Bld) 6.5 thou/cmm Normal 4.8-10.8 [facility] Comment on above: Performed By: #### L CBCD ####[place] [id number] MDRD eGFRon 04-20-2018 GFR/1.73 sq M predicted among non-blacks MDRD vol rate/area (S/P/Bld) mL/min/{1.73_m2} Normal >60mL/min/ 1.73m2 [facility] Comment on above: Result Comment: If t he patient is , multiply the result by 1.210. Performed By: #### L GFR ####[place] [address] US RETROPERITONEAL LIMITEDon 04-20-2018 Protein mass conc Performed at [facility] APPROVED BY: Kevin Dawn MD EXAM TITLE: US RETROPERITONEAL LIMITED DATE: 04/20/2018 09:02 INDICATION: Dysuria. Flank pain. COMPARISON: None. All images were captured and stored in a permanent archive. Sonographic imaging of the kidneys and bladder was performed. Right kidney:Normal in size measuring 13.0 cm in length.No hydronephrosis, mass, or renal calculus.Renal parenchyma is normal in thickness and echotexture. Left kidney:Normal in size measuring 13.2 cm in length.No hydronephrosis, mass, or renal calculus.Renal parenchyma is normal in thickness and echotexture. Urinary bladder:Unremarkable. IMPRESSION: Unremarkable ultrasound of kidneys and bladder. Normal [facility] Urinalysis Routineon 018 Appearance Nom (U) 3+ (CLOUDY) Normal [facility] Comment on above: Performed By: #### L URIN ####[place] [address] Bilirubin Urine see below Normal Negative [facility] Comment on above: Result Comment: Dete cted (Unable to confirm). Performed By: #### L URIN ####[place] [address] Color Nom (U) BROWN Normal [facility] Comment on above: Performed By: #### L URIN ####[place] [address] Ep Cells Urine NONE Normal 0-5 [facility] Comment on above: Performed By: #### L URIN ####[place] [address] Glucose Ql (U) Negative Normal Negative [facility] Comment on above: Performed By: #### L URIN ####[place] [address] Hemoglobin,Urine 3+ Abnormal Negative [facility] Comment on above: Performed By: #### L URIN ####[facility] [place] [address] Ketone Urine Negative Normal Negative [facility] Comment on above: Performed By: #### L URIN ####[place] [address] Leukocytes Esterase Negative Normal Negative [facility] Comment on above: Performed By: #### L URIN ####[place] [address] Nitrites Urine Negative Normal Negative [facility] Comment on above: Performed By: #### L URIN ####[place] [address] pH Test strip (U) 7.0 [pH] Normal 5.0-8.0 [facility] Comment on above: Performed By: #### L URIN ####[place] [address] Protein Urine 2+ Abnormal Negative [facility] Comment on above: Performed By: #### L URIN ####[place] [address] RBC LM.HPF #/area (Urine sed) /[HPF] Abnormal 0-3 [facility] Comment on above: Performed By: #### L URIN ####[place] [address] Specific [place], Ur 1.025 Normal 1.005-1 .03 0 [facility] Comment on above: Performed By: #### L URIN ####[place] [address] Urobilinogen,Ur 0.2 EU/dL Normal 0.0-1.0 [facility] Comment on above: Performed By: #### L URIN ####[place] [address] WBC LM.HPF #/area (Urine sed) 0-2 Normal 0-5 [facility] [id number] Comment on above: Performed By: #### L URIN ####[place] [address] Vital Signs Date Time Vital Sign Value Performing Clinician Facility 11-12-2024 16:45-0400 Body height 177.8 cm Lai Borges [employer]OL[employer] HELPER[employer] Work Phone: [facility] 11-12-2024 16:45-0400 Body mass index (BMI) [Ratio] 41 kg/m2 Lai Borges [employer] Work Phone: [facility] 11-12-2024 16:45-0400 Body temperature 97.7 [degF] Lai Borges [employer]PHOLSTERER HELPER[employer] Work Phone: [facility] 11-12-2024 16:45-0400 Body weight 129.72 kg Lai Borges [employer]PHOLSTERER HELPER[employer] Work Phone: [facility] 11-12-2024 16:45-0400 Diastolic blood pressure 62 mm[Hg] Lai Borges [employer] HEL[employer] Work Phone: [facility] 11-12-2024 16:45-0400 Heart rate 76 /min Lai Borges [employer]OLSTERER HELPER[employer] Work Phone: [facility] 11-12-2024 16:45-0400 Respiratory rate 18 /min Lai Borges [employer]OLSTER[employer] HELPER[employer] Work Phone: [facility] 11-12-2024 16:45-0400 SaO2% (BldA) [Mass fraction] 94 % Lai Borges [employer] HELPER[employer] Work Phone: [facility] 11-12-2024 16:45-0400 Systolic blood pressure 138 mm[Hg] Lai Borges [employer] HEL[employer] Work Phone: [facility] 10-20-2024 18:33-0400 Body height 177.8 cm Lai Borges [employer]PH[employer] HEL[employer] Work Phone: [facility] 10-20-2024 18:33-0400 Body mass index (BMI) [Ratio] 41.5 kg/m2 Lai Borges [employer]PHOL[employer]ER HELPER[employer] Work Phone: [facility] 10-20-2024 18:33-0400 Body temperature 97.7 [degF] Lai Borges [employer]PHOLSTERER HELPER[employer]C Work Phone: [facility] 10-20-2024 18:33-0400 Body weight 131.54 kg Lai Borges [employer]PHOLSTERER HELPER[employer] Work Phone: [facility] 10-20-2024 18:33-0400 Diastolic blood pressure 72 mm[Hg] Lai Borges [employer]PH[employer]ER HEL[employer] Work Phone: [facility] 10-20-2024 18:33-0400 Heart rate 62 /min Laileidy Borges [employer]PHOLSTERER HELPER[employer]C Work Phone: [facility] 10-20-2024 18:33-0400 Respiratory rate 18 /min Lai Borges [employer]PHOLSTERER HELPER[employer] Work Phone: [facility] 10-20-2024 18:33-0400 SaO2% (BldA) [Mass fraction] 96 % Lai Borges [employer]PHOLSTERER HELPER[employer]C Work Phone: [facility] 10-20-2024 18:33-0400 Systolic blood pressure 128 mm[Hg] Lai Borges [employer]PHOLSTERER HELPER[employer]C Work Phone: [facility] 08-02-2024 13:16-0500 Body mass index (BMI) [Ratio] 42.2 kg/m2 Lai Borges [employer]PHOLSTERER HELPER[employer] Work Phone: [facility] 08-02-2024 13:16-0500 Body temperature 97.5 [degF] Lai Borges [employer]PHOLSTERER HELPER[employer]C Work Phone: [facility] 08-02-2024 13:16-0500 Body weight 133.35 kg Lai Borges [employer]PHOLSTERER HELPER[employer]C Work Phone: [facility] 08-02-2024 13:16-0500 Diastolic blood pressure 70 mm[Hg] Lai Borges [employer]PHOLSTERER HELPER[employer]C Work Phone: [facility] 08-02-2024 13:16-0500 Heart rate 62 /min Lai Borges [employer]PHOLSTERER HELPER[employer]C Work Phone: [facility] 08-02-2024 13:16-0500 Respiratory rate 18 /min Lai Christopher [employer]OLSTERER HELPER[employer]C Work Phone: [facility] 08-02-2024 13:16-0500 SaO2% (BldA) [Mass fraction] 97 % Laileidy GreenwoodBorges UPHOLSTERER HELPER-C Work Phone: [facility] 08-02-2024 13:16-0500 Systolic blood pressure 150 mm[Hg] Lai Borges [employer]PHOLSTERER HELPER[employer]C Work Phone: [facility] 04-07-2024 10:29-0400 Body mass index (BMI) [Ratio] 40.68 kg/m2 Cliff Serrater PILE DRIVING TECHNICIAN.SUPERVISOR EDUCATION Work Phone: [facility] 04-07-2024 10:29-0400 Body weight 128.6 kg Cliff Solitario PILE DRIVING TECHNICIAN.SUPERVISOR EDUCATION Work Phone: [facility] 04-07-2024 10:29-0400 Diastolic blood pressure 75 mm[Hg] Cliff Solitario PILE DRIVING TECHNICIAN.SUPERVISOR EDUCATION Work Phone: [facility] 04-07-2024 10:29-0400 Heart rate 59 /min Cliff Solitario PILE DRIVING TECHNICIAN.SUPERVISOR EDUCATION Work Phone: [facility] 04-07-2024 10:29-0400 SaO2% (BldA) [Mass fraction] 97 % Cliff Solitario PILE DRIVING TECHNICIAN.SUPERVISOR EDUCATION Work Phone: [facility] 04-07-2024 10:29-0400 Systolic blood pressure 153 mm[Hg] Cliff Solitario PILE DRIVING TECHNICIAN.SUPERVISOR EDUCATION Work Phone: [facility] 10-10-2023 17:20-0400 Body height 177.8 cm [facility] 10-10-2023 17:20-0400 Body mass index (BMI) [Ratio] 41.4 kg/m2 [facility] 10-10-2023 17:20-0400 Body temperature 97.7 [degF] [facility] 10-10-2023 17:20-0400 Body weight 131.08 kg [facility] 10-10-2023 17:20-0400 Diastolic blood pressure 80 mm[Hg] [facility] 10-10-2023 17:20-0400 Heart rate 64 /min [facility] 10-10-2023 17:20-0400 Respiratory rate 189 /min [facility] 10-10-2023 17:20-0400 SaO2% (BldA) [Mass fraction] 98 % [facility] 10-10-2023 17:20-0400 Systolic blood pressure 140 mm[Hg] [facility] 01-06-2023 18:54-0400 Body height 177.8 cm [facility] 01-06-2023 18:54-0400 Body mass index (BMI) [Ratio] 40.6 kg/m2 [facility] 01-06-2023 18:54-0400 Body temperature 97.9 [degF] [facility] 01-06-2023 18:54-0400 Body weight 128.36 kg [facility] 01-06-2023 18:54-0400 Diastolic blood pressure 60 mm[Hg] [facility] 01-06-2023 18:54-0400 Heart rate 67 /min [facility] 01-06-2023 18:54-0400 Respiratory rate 18 /min [facility] 01-06-2023 18:54-0400 SaO2% (BldA) [Mass fraction] 97 % [facility] 01-06-2023 18:54-0400 Systolic blood pressure 120 mm[Hg] [facility] 01-06-2023 12:03-0400 Body height 179 cm Service Seeking [facility]man 01-06-2023 12:03-0400 Body mass index (BMI) [Ratio] 39.9 kg/m2 [facility] 01-06-2023 12:03-0400 Body temperature 97.88 [degF] [facility] 01-06-2023 12:03-0400 Body weight 127.9 kg Sera Boyko DO Rahman 01-06-2023 12:03-0400 Diastolic blood pressure 77 mm[Hg] Sera Rhonda DO Rahman 01-06-2023 12:03-0400 Heart rate 68 /min Sera Boyko DO Rahman 01-06-2023 12:03-0400 Respiratory rate 20 /min Sera Rhonda DO Rahman 01-06-2023 12:03-0400 SaO2% (BldA) [Mass fraction] 96 % Sera Boyko DO Rahman 01-06-2023 12:03-0400 Systolic blood pressure 137 mm[Hg] [facility] 12-30-2022 16:26-0400 Body mass index (BMI) [Ratio] 40.4 kg/m2 [facility] 12-30-2022 16:26-0400 Body temperature 97.9 [degF] [facility] 12-30-2022 16:26-0400 Body weight 127.91 kg [facility] 12-30-2022 16:26-0400 Diastolic blood pressure 70 mm[Hg] [facility] 12-30-2022 16:26-0400 Heart rate 63 /min [facility] 12-30-2022 16:26-0400 Respiratory rate 18 /min [facility] 12-30-2022 16:26-0400 SaO2% (BldA) [Mass fraction] 99 % [facility] 12-30-2022 16:26-0400 Systolic blood pressure 120 mm[Hg] [facility] 12-06-2022 15:34-0400 Body mass index (BMI) [Ratio] 41.5 kg/m2 [facility] 12-06-2022 15:34-0400 Body temperature 97.7 [degF] [facility] 12-06-2022 15:34-0400 Body weight 131.54 kg [facility] 12-06-2022 15:34-0400 Diastolic blood pressure 74 mm[Hg] [facility] 12-06-2022 15:34-0400 Heart rate 65 /min [facility] 12-06-2022 15:34-0400 Respiratory rate 18 /min [facility] 12-06-2022 15:34-0400 SaO2% (BldA) [Mass fraction] 97 % [facility] 12-06-2022 15:34-0400 Systolic blood pressure 142 mm[Hg] [facility] 10-22-2022 16:28-0400 Body mass index (BMI) [Ratio] 43.3 kg/m2 [facility] 10-22-2022 16:28-0400 Body temperature 98.1 [degF] [facility] 10-22-2022 16:28-0400 Body weight 136.98 kg [facility] 10-22-2022 16:28-0400 Diastolic blood pressure 80 mm[Hg] [facility] 10-22-2022 16:28-0400 Heart rate 61 /min [facility] 10-22-2022 16:28-0400 Respiratory rate 18 /min [facility] 10-22-2022 16:28-0400 SaO2% (BldA) [Mass fraction] 96 % [facility] 10-22-2022 16:28-0400 Systolic blood pressure 130 mm[Hg] [facility] 09-17-2022 19:36-0500 Body mass index (BMI) [Ratio] 42.7 kg/m2 [facility] 09-17-2022 19:36-0500 Body temperature 97.5 [degF] [facility] 09-17-2022 19:36-0500 Body weight 135.17 kg [facility] 09-17-2022 19:36-0500 Diastolic blood pressure 70 mm[Hg] [facility] 09-17-2022 19:36-0500 Heart rate 62 /min [facility] 09-17-2022 19:36-0500 Respiratory rate 18 /min [facility] 09-17-2022 19:36-0500 SaO2% (BldA) [Mass fraction] 97 % [facility] 09-17-2022 19:36-0500 Systolic blood pressure 142 mm[Hg] [facility] 05-06-2022 15:03-0400 Body height 177.8 cm [facility] Work Phone: 05-06-2022 15:03-0400 Body mass index (BMI) [Ratio] 42 kg/m2 [facility] Work Phone: 05-06-2022 15:03-0400 Body temperature 98.1 [degF] [facility] Work Phone: 05-06-2022 15:03-0400 Body weight 132.9 kg [facility] Work Phone: 05-06-2022 15:03-0400 Diastolic blood pressure 80 mm[Hg] [facility] Work Phone: 05-06-2022 15:03-0400 Heart rate 62 /min [facility] Work Phone: 05-06-2022 15:03-0400 Respiratory rate 18 /min [facility] Work Phone: 05-06-2022 15:03-0400 SaO2% (BldA) [Mass fraction] 99 % [facility] Work Phone: 05-06-2022 15:03-0400 Systolic blood pressure 138 mm[Hg] [facility] Work Phone: NEGATED: Highlighted [id number] 13:08-0400 BMI (Body Mass Index) 40.04 kg/m2 Silvina [facility] Work Phone: NEGATED: Highlighted [id number] 13:08-0400 Body weight 127.92 kg Silvina [facility] Work Phone: NEGATED: Highlighted [id number] 13:08-0400 Body weight 128 kg Silvina [facility] Work Phone: NEGATED: Highlighted [id number] 13:08-0400 Heart rate 2+ Silvina [facility] Work Phone: NEGATED: Highlighted [id number] 13:08-0400 Height 179.07 cm Silvina [facility] Work Phone: NEGATED: Highlighted [id number] 13:08-0400 Height 179 cm Silvina [facility] Work Phone: Encounters Encounter Date Encounter Type Care Provider Facility Start: 02-09-2025 End: 02-09-2025 ambulatory LAI BORGES Facility:[facility] Start: 12-21-2024 End: 2024 ambulatory MEAGAN WITT Facility:[facility] Start: 11-23-2024 End: 11-24-2024 ambulatory [facility] Facility:[facility] Start: 11-12-2024 End: 11-12-2024 ambulatory Lai Borges UPHOLSTERER HELPER-C Work Phone: [facility] Work Phone: Start: 11-12-2024 End: 11-12-2024 Patient encounter procedure Lai Borges UPHOLSTERER HELPER-C -Laboratory, Specimen Work Phone: Start: 11-12-2024 End: 11-12-2024 ambulatory Lai Borges UPHOLSTERER HELPER Facility:[facility] Start: 10-20-2024 End: 10-20-2024 ambulatory Lai Borges UPHOLSTERER HELPER-C Work Phone: [facility] Work Phone: Start: 10-20-2024 End: 10-20-2024 Patient encounter procedure Lai Borges UPHOLSTERER HELPER-C -Laboratory, Specimen Work Phone: Start: 10-20-2024 End: 10-20-2024 ambulatory Lai Borges NP Facility:[facility] Start: 10-12-2024 End: 10-12-2024 ambulatory AYANA BERRIOS MD Facility:[facility] Start: 05-26-2024 ambulatory LAI BORGES Facilit y:[facility] Start: 05-25-2024 End: 05-25-2024 ambulatory AYANA BERRIOS MD Facility:[facility] Start: 05-17-2024 End: 05-17-2024 ambulatory AYANA BERRIOS MD Facility:[facility] Start: 04-30-2024 End: 04-30-2024 Orders Only Aliya Contreras APRN.SUPERVISOR EDUCATION Work Phone: [facility] Pulmonary Comment on above: Encounter for screen ing for lung cancer (Primary Dx); Former tobacco use; Coronary artery calcification Start: 04-29-2024 ambulatory UNKNOWN PROVIDER Facili ty:[facility] Start: 04-29-2024 End: 04-29-2024 Subsequent hospital visit by physician [facility] Radiology Comment on above: Encounter for screen ing for lung cancer [Z12.2] Start: 04-07-2024 End: 04-07-2024 ambulatory CLIFF STUARTBERNY Facility:[facility] Start: 04-07-2024 End: 04-07-2024 Patient encounter procedure Cliff Bynumpster PILE DRIVING TECHNICIAN.SUPERVISOR EDUCATION Work Phone: Pulmonary Medicine Comment on above: Encounter for screen ing for lung cancer (Primary Dx); Former tobacco use; Nicotine dependence due to vaping non-tobacco product Start: 02-24-2024 End: 02-24-2024 ambulatory AYANA BERRIOS MD Facility:[facility] Start: 10-10-2023 End: 10-10-2023 ambulatory [facility] Work Phone: Start: 10-10-2023 End: 10-10-2023 Patient encounter procedure [facility]-Laboratory, Specimen Work Phone: Start: 02-04-2023 End: 02-05-2023 ambulatory [facility] Start: 01-17-2023 ambulatory LAILeidy BORGES Facilit y:[facility] Start: 01-06-2023 End: 01-06-2023 ambulatory [facility] Work Phone: Start: 01-06-2023 End: 01-06-2023 Patient encounter procedure [facility]-Laboratory, Specimen Start: 01-06-2023 Sera miller Rahman Start: 10-23-2022 End: 10-24-2022 ambulatory LAI BORGES Facility:[facility] Start: 10-23-2022 ambulatory LAI BORGES Facilit y:[facility] Start: 10-23-2022 End: 10-23-2022 Subsequent hospital visit by physician [facility] Comment on above: Pain in left finger( s) [M79.645] Start: 10-08-2022 End: 10-09-2022 ambulatory AYANA BERRIOS [facility] Start: 07-01-2022 End: 07-01-2022 ambulatory KING HODGES MD Facility:[facility] Start: 06-12-2022 End: 06-13-2022 ambulatory LAI BORGES [facility] Start: 05-07-2022 ambulatory LAI BORGES Facilit y:[facility] Start: 05-07-2022 End: 05-07-2022 Subsequent hospital visit by physician [facility] Comment on above: Cough, unspecified [ R05.9] Start: 05-06-2022 End: 05-06-2022 ambulatory [facility] Work Phone: Start: 05-06-2022 End: 05-06-2022 Patient encounter procedure [facility]-Laboratory, Specimen Start: 05-06-2022 Patient encounter status [facility] Start: 05-22-2020 End: 05-23-2020 Patient encounter procedure Gwen Jerez PILE DRIVING TECHNICIAN-SUPERVISOR EDUCATION Work Phone: [facility] Work Phone: Procedures Date Procedure Procedure Detail Performing Clinician Start: 11-12-2024 Urine culture Lai choe UPHOLSTERER HELPER-C Work Phone: Start: 04-29-2024 CT LUNG SCREEN SWETA Solitario PILE DRIVING TECHNICIAN.SUPERVISOR EDUCATION Work Phone: Start: 05-22-2020 End: 05-23-2020 Blood pressure screening not performed - reason not given Gwen A Wattley PILE DRIVING TECHNICIAN-SUPERVISOR EDUCATION Work Phone: Start: 05-22-2020 End: 05-23-2020 BMI documented as above normal parameters - follow-up documented Gwen A Wattley PILE DRIVING TECHNICIAN-SUPERVISOR EDUCATION Work Phone: Start: 05-22-2020 End: 05-23-2020 Documentation of current medications Gwen A Wattley PILE DRIVING TECHNICIAN-SUPERVISOR EDUCATION Work Phone: Start: 05-22-2020 End: 05-23-2020 Pain assessment documented as negative - follow-up not required Gwen A Wattley PILE DRIVING TECHNICIAN-SUPERVISOR EDUCATION Work Phone: Start: 05-22-2020 End: 05-23-2020 Tobacco non-user Gwen A Wattley PILE DRIVING TECHNICIAN-SUPERVISOR EDUCATION Work Phone: Urine culture NEGATED: Highlighted rowStart: 05-22-2020 End: 05-22-2020 Documentation of current medications Silvina Chandler Plan of Treatment Date Care Activity Detail Author Start: 03-16-2027 Screening for malign ant neoplasm of colon [facility] Start: 04-29-2025 Screening for malign ant neoplasm of lung Lung Cancer Screening [facility] Start: 04-29-2024 End: 04-29-2024 Patient encounter procedure 04/29/2024 11:00 AM EDT Appointment Radiology [address] [place] [address] Encounter for screening for lung cancer [Z12.2] Radiology Comment on above: Encounter for screen ing for lung cancer [Z12.2] Start: 03-28-2024 Covid-19 Vaccine ( season) Covid-19 Vaccine () [facility] Start: 03-28-2024 Covid-19 Vaccine () Covid-19 Vaccine () [facility] Start: 03-28-2024 Influenza vaccination Influenza Vacc ine (#1) [facility] Start: 07-28-2023 Advance Directive Discussion Advance Directive Discussion [facility] Start: 07-28-2022 ADVANCE DIRECTIVE DISCUSSION ADVANCE DIRECTIVE DISCUSSION [facility] Start: 07-28-2022 DEPRESSION ASSESSMENT DEPRESSION ASS ESSMENT [facility] Start: 03-28-2022 Influenza vaccination INFLUENZA (#1) [facility] Start: 03-21-2022 COVID-19 VACCINE (5 - Booster for Pfizer series) COVID-19 VACCINE (5 - Booster for Pfizer series) [facility] Start: 07-28-2021 ADVANCE DIRECTIVE DISCUSSION ADVANCE DIRECTIVE DISCUSSION [facility] Start: 07-28-2021 DEPRESSION ASSESSMENT DEPRESSION ASS ESSMENT [facility] Start: 04-25-2021 DIABETES SCREEN DIABETES SCREEN [facility] Start: 04-25-2021 Diabetes Screening Diabetes Screenin g [facility] Start: 12-22-2020 Pneumococcal Vaccine : 65+ (1 of 1 - PCV) Pneumococcal Vaccine: 65+ (1 of 1 - PCV) [facility] Start: 12-22-2010 PROSTATE CANCER SCREENING DISCUSSION PROSTATE CANCER SCREENING DISCUSSION [facility] Start: 12-22-2010 Prostate specific antigen measurement Prostate Cancer Screening Discussion [facility] Start: 12-22-2005 Screening for malign ant neoplasm of lung Lung Cancer Screening [facility] Start: 12-22-2005 SHINGRIX VACCINE (1 of 2) SHINGRIX VACCINE (1 of 2) [facility] Start: 12-22-2000 COLOGUARD (FIT-DNA) COLOGUARD (FIT-D NA) [facility] Start: 12-22-2000 Colonoscopy COLONOSCOPY [facility] Start: 12-22-2000 COLORECTAL CANCER SCREENING COLORECTAL CANCER SCREENING [facility] Start: 12-22-[address] 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 Disease Visit Annual PCP Team Chronic Disease Visit [facility] Start: 12-22-1973 BP Controlled (<130/80) BP Controlle d (<130/80) [facility] Start: 12-22-1973 Depression Screening Depression Scre ening [facility] Start: 12-22-1973 Hepatitis B surface antibody level LDL Cholesterol [facility] Start: 12-22-1973 [facility]PATIT[facility] Start: 12-22-1973 Hepatitis C screening Hepatitis C [facility] Start: 12-22-1961 PNEUMOCOCCAL: 65+ (1 - PCV) PNEUMOCOCCAL: 65+ (1 - PCV) [facility] Start: 1955 ABDOMINAL AORTIC ANEURYSM SCREENING ABDOMINAL AORTIC ANEURYSM SCREENING [facility] Start: 1955 Abdominal aortic aneurysm screening Abdominal Aortic Aneurysm Screening [facility] End: 05-07-2025 CT Chest for screening WO contrast CT LUNG SCREEN WO IVCON Radiology Routine Encounter for screening for lung cancer Former tobacco use 1 Occurrences starting 04/07/2024 until 05/07/2025 [facility] Work Phone: Comment on above: 1 Occurrences starti ng 04/07/2024 until 05/07/2025 End: 05-30-2025 CT Chest for screening WO contrast CT LUNG SCREEN WO IVCON Radiology Routine Encounter for screening for lung cancer Former tobacco use 1 Occurrences starting 04/30/2024 until 05/30/2025 [facility] Work Phone: Comment on above: 1 Occurrences starti ng 04/30/2024 until 05/30/2025 [facility] Work Phone: [facility] Immunizations Immunization Date Immunization Notes Care Provider Deidre lu 06-12-2022 influenza virus vacc ine, unspecified formulation Cliff Solitario PILE DRIVING TECHNICIAN.SUPERVISOR EDUCATION Work Phone: [facility] Payers Date Payer Category Payer Self-pay [id number] 2024 Unknown [id number] 2023 Private Health Insurance [id number] 2021 Medicare [id number] 2021 Unknown [id number] 2008 Private Health Insurance 1955 Unknown [id number] 2.16.8 [id number] 1955 Unknown [id number] 2.16.8 40.1.852498.3.579.2.159 1955 Unknown [id number] 2.16.8 40.1.730810.3.579.2.159 1955 Unknown [id number] 2.16.8 40.1.879291.3.579.2.159 1955 Unknown [id number] 2.16.8 40.1.940102.3.579.2.159 1955 Unknown [id number] 2.16. 840.1.852990.3.579.2.732 1955 Unknown [id number] 2.16. 840.1.055212.3.579.2.732 1955 Unknown [id number] 2.16.8 40.1.476497.3.579.2.159 1955 Unknown [id number] 2.16.8 40.1.580676.3.579.2.159 1955 Unknown [id number] 2.16.8 40.1.594535.3.579.2.159 1955 Unknown [id number] 2.16.8 40.1.588065.3.579.2.159 1955 Unknown [id number] 2.16.8 40.1.256769.3.579.2.159 1955 Unknown [id number] 2.16.8 40.1.999812.3.579.2.159 1955 Unknown [id number] 2.16.8 40.1.939690.3.579.2.159 Private Health Insurance RAUL Hameed [id number] Unknown ELSIE [id number] Unknown [id number] 2.16.8 [id number] Unknown [id number] 2.16.8 [id number] Unknown [id number] 2.16.8 [id number] Unknown [id number] Social History Date Type Detail Facility Start: 05-23-2020 End: 05-23-2020 Assertion Unknown if ever smoked [facility] Work Phone: Start: 04-20-2018 [facility] Start: 04-20-2018 End: 04-07-2024 Tobacco use and exposure Smokeless tobacco non-user [facility] Start: 04-20-2018 End: 04-07-2024 Alcohol intake Current drinker of alcohol (finding) [facility] Start: 1955 Sex Assigned At Not on file C [facility] Start: 04-27-2022 End: 05-07-2022 Exposure to SARS-CoV-2 (event) Not sure [facility] Start: 1955 Sex Assigned At Male [facility] Start: 04-07-2024 [facility] Start: 07-28-1968 End: 07-28-2010 History of tobacco use Current smoker [facility] Start: 07-28-1968 End: 07-28-2010 History of tobacco use Cigarette Smoker [facility] Start: 04-07-2024 Cigarettes smoked current (pack per day) - Reported 1.5 [facility] Start: 04-07-2024 Tobacco use panel [facility] National Score (1-10 0), lower number is lower risk 53 [facility] Start: 04-07-2024 Tobacco Comment Pt vapes daily. [facility] Start: 10-25-2024 End: 11-17-2024 Sex Male (finding) [facility] Clinical Notes 04-07-2024 to 10-20-2024 Note Date & Type Note Facility 10-20-2024 Evaluation note Diagnosis Onset Date Resolution Injection site reaction acute M arch 2024 6:08pm Prostate cancer screening acute October 20, 2024 6:08pm Weight gain acute October 20, 2 025 6:08pm Blood in the urine acute November 12, 2024 4:29pm Kidney stone acute November 12, 2024 4:29pm Urgency of micturition acute Ap ril 2024 4:29pm [facility] Work Phone: 1(514) 234-697612-23-2024 Evaluation note* Diagnosis Onset Date Resolution Status Admit Date Bilateral otitis media acute De cember 2023 4:57pm Bronchitis acute July 19, 2024 4:57pm Maxillary sinusitis, acute acute July 19, 2024 4:57pm Injection site reaction acute M arch 2024 6:08pm Prostate cancer screening acute October 20, 2024 6:08pm Weight gain acute October 20, 2 025 6:08pm [facility] Work Phone: 1(628) 664-929310-04-2024 NoteHNO ID: [id number] Author: ALIYA CONTRERAS APRN.CNP Service: ? Author Type: Nurse Practitioner Type: Progress Notes Filed: 04/30/2024 01:01 Note Text: Annual order and coronary artery calcifications. Aliya Contreras APRN.[facility]10-04-2024 History of Present illness Narrative* Aliya Contreras APRN.CNP - 04/30/2024 1:01 AM EDT Annual order and coronary artery calcifications. Aliya Contreras APRN.CNP [facility] Instructions* Patient Instructions* Traver, Cliff, PILE DRIVING TECHNICIAN.SUPERVISOR EDUCATION - 04/07/2024 11:[address] Lung Screen Results The CT scan that you will have done will show if you have any nodules (small spots) in your lungs that are suspicious for cancer. Around 90% of the patients who have this scan done are found to have at least one nodule. Most nodules are benign (not cancer) and of no harm to you at all. A specialistwill make a scientific evaluation about whether or not a nodule is worrisome based on its size and shape. The radiologist who will read your scan will put it into one of four categories: LUNG-RADS Category Description Overall Probability of Malignancy Recommended Follow-Up 1 Negative No nodules and definitely benign (non-cancerous nodules) Essentially 0. 1 Year - Follow-up Low dose CT 2 Benign Appearance or Behavior Nodules with a very low likelihood of becoming cancer due to size or lack of growth Less than 1% 1 Year - Follow-up Low dose CT 3 Probably Benign Probably benign finding, short term follow-up recommended 1 to 2% 6 Months - Follow-up Low dose CT 4 Suspicious Findings for which additional diagnostic testing and/or biopsy is recommended Will be calculated based on nodule characteristics. Dependent on what is seen on the exam. (3 month follow-up CT, PET-CT, or biopsy) 0 Incomplete Findings suggestive of an inflammatory or infectious process AND/OR part of the lung cannot be evaluated Additional lung cancer screening CT imaging needed AND/OR comparison with prior chest CT imaging At times, we may see something outside of the lungs on the scan that could be a health concern. Below are some of the most common findings: S Clinically Significant or Potentially Clinically Significant Findings (non lung cancer) Referral or additional imaging/labs depending on result. Approximately 10% of people receive this result. Coronary Artery Calcifications (Moderate or Severe) - Referral to cardiology for further work-up and recommendations. Thyroid Nodule - TSH level and Thyroid Ultrasound dependent on size, referral to endocrinology. Adrenal Nodule - blood work and referral to endocrinology. Others Lung Cancer Screening hotline: [phone] Lung Cancer Screening [phone] Billing Questions: or [email or web address] Specialist Providers: (Claritza Wellington PA-C; Aliya Contreras CNP; Xin Troncoso CNP, Missy Alanis CNP; Barbara Kessler CNP; KIRSTEN Edwards; Cliff Solitario CNP; Sera Chavez CNP; Jeannie Gibson CNP; Tamara Still CNP; Erica Abdalla PA-C; Ling Julien PA-C; Edie Campo CNP; Selma Saldana CNP; Giuliana Mazariegos CNP): [phone] documented [facility]24 NoteHNO ID: [id number] Author: CLIFF SOLITARIO APRN.CNP Service: ? Author Type: Nurse Practitioner Type: Progress Notes Filed: 04/07/2024 11:39 Note Text: LUNG SCREENING VISIT PRIMARY CARE PHYSICIAN: Lai Borges APRN.CNP PULMONARY PROVIDER: none Results will be communicated via letter or electronic record if applicable. Visit Delivery: In Person Patient Visit Type: New to Screening Current or Ex-smoker? ex Exam Type: baseline LDCT Number of Pack Years: 63 Current smoker (=0) or Number of Years since Quit: 13 REQUESTER: The referring provider advised the patient to have screening. HISTORY OF PRESENT ILLNESS: Angelo Gracia is a 68 year old Former smoker who presents for lung screening. E cigarette. Respiratory symptoms include: SOB: No Chest tightness: No Coughing: No, throat clearing Hemoptysis: No Wheezing: Yes, sometimes Fever/Chills: No Recent Respiratory Infection: No Unintentional weight loss: No Last 6 Encounter Wt Readings: Date: Wt: 04/07/2024 128.6 kg (283 lb 8.2 oz) 04/25/2018 117.9 kg (260 lb) 04/20/2018 117.9 kg (260 lb) Exercise bike tolerates well. 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 ECOG PERFORMANCE STATUS: 0- Fully active, able to carry on all pre-disease performance w/o restriction. Modified Medical Research Three Affiliated Dyspnea Scale (MMRC) I only get breathless with strenous exercise 0 PAST MEDICAL HISTORY No date: Kidney stones PAST SURGICAL HISTORY No date: HERNIA REPAIR HX No date: PCI/STENT; Right History reviewed. No pertinent family history. aspirin 81 mg chewable tablet Take 81 mg by mouth once daily. atorvastatin (LIPITOR) 40 mg tablet Take 40 mg by mouth once daily. metoprolol succinate ER (TOPROL XL) 25 mg 24 hr tablet Take 12.5 mg by mouth once daily. hydrOXYzine HCl (ATARAX) 10 mg tablet Take 10 mg by mouth three times a day as needed for anxiety. trazodone HCl (TRAZODONE ORAL) Take 25 mg by mouth daily at bedtime. tamsulosin ER (FLOMAX) 0.4 mg cap Take 1 capsule by mouth daily at bedtime for 7 days. (Patient not taking: Reported on 04/07/2024) ketorolac (TORADOL) 10 mg tablet Take 1 tablet by mouth every 6 hours as needed. (Patient not taking: Reported on 04/07/2024) ALLERGIES Allergen Reactions Penicillin Hives The medications and allergies were reviewed and reconciled for this patient and deemed current. Lung Cancer Risk Factors: 1.Tobacco Use: Start Age 13, Quit Age: 55, Average packs per day 1.5, Pack Years 63 2. Passive Smoke Exposure: Yes, as a Child and as an Adult 3. Personal hx of malignancy: Yes, Type of Cancer: Other smoking-related cancers 4. 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 Race: White 6. Education: Some College 7. BMI:Body mass index is 40.68 kg/m?. Patient-entered Height: 5'10" Patient-entered Weight: 283 pounds 8. COPD: No 9. Pneumonia in the past 5 years: No 10. Is there a history of lung cancer in a first degree relative? No 11. Is there a history of lung cancer in a non-first degree relative? No 12. Is there a history of any other cancer in a first degree relative? No Health Maintenance Immunization History Administered Date(s) Administered COVID-19 original vaccine, age 12+ yr, monovalent ([employer] - MAS TOP) 01/24/2022 COVID-19 original vaccine, age 12+ yr, monovalent (new test company-[employer] - PURPLE TOP) 10/25/2020 11/15/2020 07/18/2021 Colonoscopy: Mammogram: DATA REVIEW I have directly visualized the testing documented: none Prior Imaging: Last CT/CTA Chest/Lungs No resulted procedures found. Last CT Chest - Impression Only No resulted procedures found. Last XR Chest - Impression Only XR CHEST 2V FRONTAL/LAT Collected: 05/07/2022 1:09 PM (Final result) Impression: IMPRESSION: No acute radiographic abnormality. ... Pulmonary Function Testing: No textual results found for the specified procedure(s). PHYSICAL EXAM: BP 153/75 Pulse (!) 59 Wt 128.6 kg (283 lb 8.2 oz) SpO2 97% BMI 40.68 kg/m? Deferred ASSESSMENT and RECOMMENDATIONS: 1. Screening for lung cancer: Six year risk for lung cancer: 3.02% Https://[email or web address]/[email or web address]/result/[email or web address]_yes_unknown [email or web address]://[email or web address]/tiny/[email or web address]://youtu.be/[email or web address] I have determined that the patient is eligible for a low dose CT based on age, absence of signs or symptoms of lung cancer, and total pack years: Yes. The patient and I engaged in shared decision making, including the use of one or more decision aids, to include benefits, harms, follow-up diagnostic testing, over-diagnosis, false positive rate, and total radiation exposure. The patient understands and feels comfortable with it: Yes. The patient was counseled on the importance of adherence to annual LDCT lung cancer screening, impact of comorbidities and ability or willingness to undergo diagnosis and (more content not included)...[facility]09-11-2024 History of Present illness Narrative* Cliff Solitario APRN.CNP - 04/07/2024 10:53 AM EDT Images from the original note were not included. LUNG SCREENING VISIT PRIMARY CARE PHYSICIAN: Lai Borges APRN.KOMAL PULMONARY PROVIDER: none Results will be communicated via letter or electronic record if applicable. Visit Delivery: In Person Patient Visit Type: New to Screening Current or Ex-smoker? ex Exam Type: baseline LDCT Number of Pack Years: 63 Current smoker (=0) or Number of Years since Quit: 13 REQUESTER: The referring provider advised the patient to have screening. HISTORY OF PRESENT ILLNESS: Angelo Gracia is a 68 year old Former smoker who presents for lung screening. E cigarette. Respiratory symptoms include: SOB: No Chest tightness: No Coughing: No, throat clearing Hemoptysis: No Wheezing: Yes, sometimes Fever/Chills: No Recent Respiratory Infection: No Unintentional weight loss: No Last 6 Encounter Wt Readings: Date: Wt: 04/07/2024 128.6 kg (283 lb 8.2 oz) 04/25/2018 117.9 kg (260 lb) 04/20/2018 117.9 kg (260 lb) Exercise bike tolerates well. 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 ECOG PERFORMANCE STATUS: 0- Fully active, able to carry on all pre-disease performance w/o restriction. Modified Medical Research Three Affiliated Dyspnea Scale (MMRC) I only get breathless with strenous exercise 0 PAST MEDICAL HISTORY No date: Kidney stones PAST SURGICAL HISTORY No date: HERNIA REPAIR HX No date: PCI/STENT; Right History reviewed. No pertinent family history. aspirin 81 mg chewable tablet Take 81 mg by mouth once daily. atorvastatin (LIPITOR) 40 mg tablet Take 40 mg by mouth once daily. metoprolol succinate ER (TOPROL XL) 25 mg 24 hr tablet Take 12.5 mg by mouth once daily. hydrOXYzine HCl (ATARAX) 10 mg tablet Take 10 mg by mouth three times a day as needed for anxiety. trazodone HCl (TRAZODONE ORAL) Take 25 mg by mouth daily at bedtime. tamsulosin ER (FLOMAX) 0.4 mg cap Take 1 capsule by mouth daily at bedtime for 7 days. (Patient nottaking: Reported on 04/07/2024) ketorolac (TORADOL) 10 mg tablet Take 1 tablet by mouth every 6 hours as needed. (Patient not taking: Reported on 04/07/2024) ALLERGIES Allergen Reactions Penicillin Hives The medications and allergies were reviewed and reconciled for this patient and deemed current. Lung Cancer Risk Factors: 1.Tobacco Use: Start Age 13, Quit Age: 55, Average packs per day 1.5, Pack Years 63 2. Passive Smoke Exposure: Yes, as a Child and as an Adult 3. Personal hx of malignancy: Yes, Type of Cancer: Other smoking-related cancers 4. 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 Race: White 6. Education: Some College 7. BMI:Body mass index is 40.68 kg/m . Patient-entered Height: 5'10" Patient-entered Weight: 283 pounds 8. COPD: No 9. Pneumonia in the past 5 years: No 10. Is there a history of lung cancer in a first degree relative? No 11. Is there a history of lung cancer in a non-first degree relative? No 12. Is there a history of any other cancer in a first degree relative? No Health Maintenance Immunization History Administered Date(s) Administered COVID-19 original vaccine, age 12+ yr, monovalent ([employer] - MAS TOP) 01/24/2022 COVID-19 original vaccine, age 12+ yr, monovalent ([employer] - PURPLE TOP) 10/25/2020 11/15/2020 07/18/2021 Colonoscopy: Mammogram: DATA REVIEW I have directly visualized the testing documented: none Prior Imaging: Last CT/CTA Chest/Lungs No resulted procedures found. Last CT Chest - Impression Only No resulted procedures found. Last XR Chest - Impression Only XR CHEST 2V FRONTAL/LAT Collected: 05/07/2022 1:09 PM (Final result) Impression: IMPRESSION: No acute radiographic abnormality. ... Pulmonary Function Testing: No textual results found for the specified procedure(s). PHYSICAL EXAM: BP 153/75 Pulse (!) 59 Wt 128.6 kg (283 lb 8.2 oz) SpO2 97% BMI 40.68 kg/m Deferred ASSESSMENT and RECOMMENDATIONS: 1. Screening for lung cancer: Six year risk for lung cancer: 3.02% Https://[email or web address].ResearchGate/[email or web address]/result/male_[email or web address]_yes_unknown [email or web address]://www.iXpert.com/tiny/[email or web address]://[email or web address]/[email or web address] I have determined that the patient is eligible for a low dose CT based on age, absence of signs or symptoms of lung cancer, and total pack years: Yes. The patient and I engaged in shared decision making, including the use of one or more decision aids, to include benefits, harms, follow-up diagnostic testing, over-diagnosis, false positive rate, andtotal radiation exposure. The patient understands and feels comfortable with it: Yes. The patient was counseled on the importance of adherence to annual LDCT lung cancer screening, impact of comorbidities and ability or willingness to undergo diagnosis and treatment. The patient understands and feels comfortable with it:Yes. 2. Nicotine dependence: The patient was counseled on the importance of maintaining cigarette smoking abstinence - The patient is committed to remaining abstinent from tobacco. 3. Vaping nicotine device: Pt has tried to quit using vape, but has been unsuccessful. Discussed this may increase risk of lung cancer, and other lung disease. Cliff Solitario APRN.KOMAL NPI #: April 07, 2024 11:05 AM documented in [facility] encounter[facility]* Diagnosis Onset Date Resolution Status Wellness examination acute [facility] Work Phone: Evaluation note* Diagnosis Onset Date Resolution Status Anxiety disorder acute Hypertension chronic Anxiety disorder acute Pain of left thumb acute Weight gain acute Diarrhea acute Insomnia acute Pain of left thumb acute Swelling of hand acute Left ear pain acute Tinnitus acute Hematuria of unknown etiology acute Kidney stone acute Left ear pain acute [facility] Work Phone: Evaluation note* Diagnosis Onset Date Resolution Status Anxiety disorder acute Hyperlipidemia acute Insomnia acute Hypertension chronic [facility] Work Phone: Evaluation note* Diagnosis Encounter for screening for lung cancer- Primary Former tobacco use Personal history of tobacco use, presenting hazards to health Nicotine dependence due to vaping non-tobacco product [facility]* Diagnosis Encounter for screening for lung cancer- Primary Former tobacco use Personal history of tobacco use, presenting hazards to health Coronary artery calcification Coronary atherosclerosis of unspecified type of vessel, [place] or graft [facility]* Diagnosis Encounter for screening for lung cancer Former tobacco use Personal history of tobacco use, presenting hazards to health [facility]* Instruction Text No instruction information i s available. Rahman Reason for referral (narrative)No reason for referral information availableWAkron Children's [facility] Work Phone: Summary Purpose Family History No Family History Records FoundThere may be information available, but it has not been provided by the sender.No Family History Records FoundNo Family History Records FoundNo Family History Records FoundNo Family History Records FoundNo Family History Records FoundNo Family History Records FoundNo Family History Records FoundNo Family History Records FoundNo Family History Records FoundNo Family History Records Found Advance Directives No Advanced Directives Records FoundThere may be information available, but it has not been provided by the sender.No Advanced Directives Records FoundNo Advanced Directives Records FoundNo Advanced Directives Records FoundNo Advanced Directives Records FoundNo Advanced Directives Records FoundNo Advanced Directives Records FoundNo Advanced Directives Records FoundNo Advanced Directives Records FoundNo AdvancedDirectives Records FoundNo Advanced Directives Records Found Chief Complaint Chief Complaint Description Start Date left knee post left knee art hroscopic partial medial meniscectomy and chondroplasty of the patellofemoral joint on 05/12/2020 Preliminary chief co mplaint data, not yet signed by the author as of Instructions Instruction Description Start Date CompletedPatient advised to follow-up with Primary Care Physician for BMI management. Assessments There may be information available, but it has not been provided by the sender. Review of System There may be information available, but it has not been provided by the sender. History of Present Illness There may be information available, but it has not been provided by the sender. Chief Complaint and Reason for Visit Chief Complaint Annual wellness PE l abs drawn Reason for Visit Wellness examination Chief Complaint Go over medications Hand pain Weight loss & hand pain Hard of hearing Urinary tract infection Reason for Visit Anxiety disorder Hypertension Anxiety disorder Pain of left thumb Weight gain Diarrhea Insomnia Pain of left thumb Swelling of hand Left ear pain Tinnitus Hematuria of unknown etiology Kidney stone Left ear pain Chief Complaint medication refills/L abs Reason for Visit Anxiety disorder Hyperlipidemia Insomnia Hypertension Chief Complaint Admit Date Sinus infection/Cough July 19 4:57pm Rash/labs October 20, 2024 6:0 8pm Reason for Visit Admit Date Bilateral otitis media July 19 4:57pm Bronchitis July 19, 2024 4:57pm Maxillary sinusitis, acute June 4:57pm Injection site reaction October 20, 2024 6:08pm Prostate cancer screening October 20 6:08pm Weight gain October 20, 2024 6:0 8pm Chief Complaint Admit Date Rash/labs October 20, 2024 6:0 8pm Flank pain November 12, 2024 4:2 9pm Reason for Visit Admit Date Injection site reaction October 20, 2024 6:08pm Prostate cancer screening October 20 6:08pm Weight gain October 20, 2024 6:0 8pm Blood in the urine November 12, 2024 4:2 9pm Kidney stone November 12, 2024 4:2 9pm Urgency of micturition November 12, 2024 4:29pm Reason for Referral Specialty Diagnoses / Procedures Referred By Contac t Referred To Contact CT IMAGING Diagnoses Encounter for screening for lung cancer Former tobacco use Procedures CT LUNG SCREEN WO IVCON COMPUTED TOMOGRAPHY THORAX LW DOSE LNG CA SCR Shiva- Cliff Solitario, PILE DRIVING TECHNICIAN.SUPERVISOR EDUCATION [id number] Imaging [id number] Referral ID Status Reason Start Date Expiration Date Visits Requested Visits Authorized [id number] Authorized Auto-Generat ed Referral 04/07/2024 05/07/2025 1 1 Specialty Diagnoses / Procedures Referred By Contac t Referred To Contact Cardiology Diagnoses Coronary artery calcification Procedures CONSULT TO CARDIOLOGY OFFICE/[facility] 60 MINUTES Aliya Contreras, PILE DRIVING TECHNICIAN.SUPERVISOR EDUCATION [address] [id number] Referral ID Status Reason Start Date Expiration Date Visits Requested Visits Authorized [id number] Pending Review PCP Requested Referral 04/30/2024 04/30/2025 1 1 Specialty Diagnoses / Procedures Referred By Contac t Referred To Contact CT IMAGING Diagnoses Encounter for screening for lung cancer Former tobacco use Procedures CT LUNG SCREEN WO IVCON COMPUTED TOMOGRAPHY THORAX LW DOSE LNG CA SCR Shiva- Aliya Contreras, PILE DRIVING TECHNICIAN.SUPERVISOR EDUCATION [address] [place] [address] Ct Imaging [id number] Referral ID Status Reason Start Date Expiration Date Visits Requested Visits Authorized [id number] New Request Auto-Generat ed Referral 04/30/2024 05/30/2025 1 1 Referral ID Status Reason Start Date Expiration Date V isits Requested Visits Authorized [id number] Closed Auto-Generate d Referral 04/07/2024 05/07/2025 1 1 Additional Source Comments (unrecognized sect ion and content) No Status Records FoundNo Status Records FoundNo Status Records FoundNo Status Records FoundNo Status Records FoundNo Status Records FoundNo Status Records FoundNo Status Records FoundNo Status Records FoundNo Status Records FoundNo Status Records Found INFORMATION SOURCE (unrecogn ized section and content) DATE CREATED AUTHOR 05/18/2018 [facility] DATE CREATED AUTHOR AUTHOR'S ORGANIZ ATION 12/12/2020 [facility] DATE CREATED AUTHOR AUTHOR'S ORGANIZ ATION 12/12/2020 [facility] DATE CREATED AUTHOR AUTHOR'S ORGANIZ ATION 10/31/2022 [facility] DATE CREATED AUTHOR AUTHOR'S ORGANIZ ATION 02/05/2023 [facility] DATE CREATED AUTHOR AUTHOR'S ORGANIZ ATION 04/09/2024 [facility] DATE CREATED AUTHOR AUTHOR'S ORGANIZ ATION 05/01/2024 [facility] DATE CREATED AUTHOR AUTHOR'S ORGANIZ ATION 05/01/2024 [facility] DATE CREATED AUTHOR AUTHOR'S ORGANIZ ATION 11/19/2024 [facility] DATE CREATED AUTHOR AUTHOR'S ORGANIZ ATION 12/24/2024 [facility] DATE CREATED AUTHOR AUTHOR'S ORGANIZ ATION 02/12/2025 [facility] Reason for Visit (unrecogniz ed section and content) Reason For Visit Description Postop - 1st visit Preliminary reason f or visit data, not yet signed by the author as of left knee post left knee art hroscopic partial medial meniscectomy and chondroplasty of the patellofemoral joint on 05/12/2020 Reason Comments New Consult - LCS Specialty Diagnoses / Procedures Referred By Enio espino Referred To Contact Pulmonary Disease / PULMONARY MEDICINE Diagnoses new lcs Procedures RI NEW LUNG CANCER SCREENING Lai Borges, PILE DRIVING TECHNICIAN.SUPERVISOR EDUCATION [address] [facility] [address] [place] [id number] Cliff Solitario, PILE DRIVING TECHNICIAN.SUPERVISOR EDUCATION [address] [place] [address] Referral ID Status Reason Start Date Expiration Date Visits Re quested Visits Authorized [id number] Closed 03/23/2024 07/27/2024 1 1 Specialty Diagnoses / Procedures Referred By Contac t Referred To Contact CT IMAGING Diagnoses Encounter for screening for lung cancer Former tobacco use Procedures CT LUNG SCREEN WO IVCON COMPUTED TOMOGRAPHY THORAX LW DOSE LNG CA SCR C- Cliff Solitario, PILE DRIVING TECHNICIAN.SUPERVISOR EDUCATION [address] [place] [address] [place] [address] Referral ID Status Reason Start Date Expiration Date V isits Requested Visits Authorized [id number] Closed Auto-Generate d Referral 04/07/2024 05/07/2025 1 1 Source Comments (unrecognize d section and content) In the event this informatio n is protected by the Federal Confidentiality of Alcohol and Drug Abuse Patient Records regulations: The Federal rules restrict any use of the information to criminally investigate or prosecute any alcohol or drug abuse patient.[facility]ima[facility] the event this information is protected by the Federal Confidentiality of Alcohol and Drug Abuse Patient Records regulations: The Federal rules restrict any use of the information to criminally investigate or prosecute any alcohol or drug abuse patient.[facility]imaIn the event this information is protected by the Federal Confidentiality of Alcohol and Drug Abuse Patient Records regulations: The Federal rules restrict any use of the information to criminally investigate or prosecute any alcohol or drug abuse patient.[facility]imaIn the event this information is protected by the Federal Confidentiality of Alcohol and Drug Abuse Patient Records regulations: The Federal rules restrict any use of the information to criminally investigate or prosecute any alcohol or drug abuse patient.[facility]imaIn the event this information is protected by the Federal Confidentiality of Alcohol and Drug Abuse Patient Records regulations: The Federal rules restrict any use of the information to criminally investigate or prosecute any alcohol or drug abuse patient.[facility] Care Teams (unrecognized sec tion and content) Shine Worker Relationship Specialty Start Date End Date Lai Borges APRN.SUPERVISOR EDUCATION [address] [place] [address] PCP - General Family Medicine 04/20/18 Shine Worker Relationship Specialty Start Date End Date Lai Borges APRN.SUPERVISOR EDUCATION [address] [place] [address] PCP - General Family Medicine 04/20/18 Team Status: Inactive Member Role Status Dates Lai Borges NP UPHOLSTERER HELPER-C Attending Provider Active Team Status: Inactive Member Role Status Dates Lai Borges NP, UPHOLSTERER HELPER-C Attending Provider, Referring Provider Active Shine Worker Relationship Specialty Start Date End Date Lai Borges, PILE DRIVING TECHNICIAN.SUPERVISOR EDUCATION [address] [place], [place] [phone] PCP - General Family Medicine 04/20/18 Shine Worker Relationship Specialty Start Date End Date Lai Borges, PILE DRIVING TECHNICIAN.SUPERVISOR EDUCATION [address] [place] [address] PCP - General Family Medicine 04/20/18 Shine Worker Relationship Specialty Start Date End Date Lai Borges, PILE DRIVING TECHNICIAN.SUPERVISOR EDUCATION [address] [place], [place] [phone] PCP - General Family Medicine 04/20/18 Team Status: Inactive Member Role Status Dates Lai Borges NP UPHOLSTERER HELPER-C Attending Provider Active Start: July 19, 2024 End: July 19, 2024 Team Status: Inactive Member Role Status Dates Lai Borges NP UPHOLSTERER HELPER-C Attending Provider Active Start: October 20, 2024 End: October 20, 2024 Team Status: Inactive Member Role Status Dates Lai Borges NP, UPHOLSTERER HELPER-C Attending Provider Active Start: October 20, 2024 End: October 20, 2024 Lai Borges NP, UPHOLSTERER HELPER-C Referring Provider Active Start: October 20, 2024 End: October 20, 2024 Team Status: Inactive Member Role Status Dates Lai Borges NP UPHOLSTERER HELPER-C Attending Provider Active Start: November 12, 2024 End: November 12, 2024 Team Status: Inactive Member Role Status Dates Lai Borges NP, UPHOLSTERER HELPER-C Attending Provider Active Start: November 12, 2024 End: November 12, 2024 Lai Borges NP, UPHOLSTERER HELPER-C Referring Provider Active Start: November 12, 2024 End: November 12, 2024 Goals (unrecognized section and content) Goals may be documented in a n alternate sectionGoals may be documented in an alternate sectionGoals may be documented in an alternate sectionGoals may be documented in an alternate sectionGoals may be documented in an alternate section FOR RECORDS PERTAINING TO PATIENTS WHO ARE OR HAVE BEEN ENROLLED IN A CHEMICAL DEPENDENCY/SUBSTANCEABUSE PROGRAM, SOME INFORMATION MAY BE OMITTED. This clinical summary was aggregated from multiple sources. Caution should be exercised in using it in the provision of clinical care. This summary normalizes information from multiple sources, and as a consequence, information in this document may materially change the coding, format and clinical context of patient data. In addition, data may be omitted in some cases. CLINICAL DECISIONS SHOULD BE BASED ON THE PRIMARY CLINICAL RECORDS. [employer] [facility]. provides no warranty or guarantee of the accuracy or completeness of information in this document.
[2025-04-18 21:52] LABS: Hematocrit 43.7 % (40-54); Hemoglobin 14.9 g/dL (13.0-16.5); Immature Granulocytes Count 0.020 X10^3/uL (0.0-0.0); Mean Corp Hgb Conc 34.1 g/dL (32-36); Mean Corpuscular Volume 97.8 fL (80-94); Mean Platelet Vol. 10.1 fl (6.2-12.0); NRBC Flagged by Analyzer 0 % (0-5); Platelet Count 229 K/mm3 (150-450); RBC Distribution Width CV 13.5 % (11.6-14.6); RBC Distribution Width SD 49.1 fl (35.1-43.9); Red Blood Count 4.47 M/mm3 (4.6-6.2); White Blood Count 9.6 K/mm3 (4.4-11.0)
[2025-04-18 23:19] LABS: AST(SGOT) 38 U/L (<=37); Alanine Aminotransfer ALT/SGPT 32 U/L (<=46); Albumin, Serum 4.4 g/dL (3.4-4.8); Alkaline Phosphatase 42 U/L (40-129); Anion Gap 15 (5-15); BUN 21 mg/dL (4-19); BUN/Creat Ratio 23.1 RATIO (10-20); Calcium,Total 9.5 mg/dL (7.6-11.0); Carbon Dioxide 23.1 mmol/L (21.0-32.0); Chloride 100 mmol/L (98-108); Cholesterol 130 mg/dL (<=200); Globulin 3.0 g/dL (2.2-4.2); Glucose 91 mg/dL (70-99); Low Density Lipoprotein Calc. 59 mg/dL; PSA,Total- Diagnostic 0.90 ng/mL (0.00-4.00); Potassium 4.5 mmol/L (3.3-5.1); Triglycerides 96 mg/dL; Very Low Density Lipoprotein 19 mg/dL (5-40); cholesterol:hdl ratio screen 2.50
== END | disposition home or self-care (01) ==
LOC: LABSPEC 21:24
PROVIDERS: Visit Provider Nurse Practitioner
DX: F41.9 Anxiety disorder, unspecified (principal); E78.2 Mixed hyperlipidemia; F51.01 Primary insomnia; R73.9 Hyperglycemia, unspecified; I10 Essential (primary) hypertension; R39.15 Urgency of urination
CPT/HCPCS: 80053; 80061; 84153; 84443; 85025